=== PATIENT | female | born 1965 | race Caucasian/White ===

== ENCOUNTER 2019-05-29 17:11 | Emergency (ER) | payer MEDICARE, SELFPAY ==
[2019-05-29] VITALS (7 sets, daily range): BP systolic 112–167; BP diastolic 70–93; PULSE 79–98; RESP 16–26; TEMP 36.6; O2SAT 90–94
--- NOTE | ~2019-05-29 | XR_ITS ---
EXAMINATION: XR chest 2V DATE: 05/29/2019 18:40 INDICATION: Shortness of breath and cough TECHNIQUE: PA and lateral views of the chest were obtained. COMPARISON: Chest radiograph dated 08/25/2018 FINDINGS: Mild perihilar bronchial wall thickening. No focal airspace opacities, pulmonary edema, pleural effus ion or pneumothorax. The cardiomediastinal silhouette is normal. Mild thoracic spondylosis. IMPRESSION: 1. Mild perihilar bronchial wall thickening without evident airspace disease. This could be seen with bronchitis or reactive airway disease. Reviewed, dictated and finalized at location A. [employer] IMPRESSION: 1. Mild perihilar bronchial wall thickening without evident airspace disease. T his could be seen with bronchitis or reactive airway disease.
--- NOTE | 2019-05-29 17:51 | ECG_ITS ---
Measurements Intervals [place] Rate: 82 P: 64 MN: 177 QRS: 11 QRSD: 85 T: 66 QT: 364 QTc: 426 Interpretive Statements SINUS RHYTHM VOLTAGE CRITERIA FOR LVH BORDERLINE R WAVE PROGRESSION, ANTERIOR LEADS BORDERLINE ECG Electronically Signed On 05-29-2019 20:04:15 CUTTING TOOL [employer]ARPENER by iLon Parr D.O.
[2019-05-29 18:07] LABS: Basophils Absolute Auto 0.1 K/mm3 (0.0-0.1); Basophils Percent Auto 0.6 % (0.2-1.2); Eosinophils Absolute Auto 0.2 K/mm3 (0-0.3); Eosinophils Percent Auto 1.7 % (0-4.4); Hematocrit 33.6 % (37.0-47.0); Hemoglobin 11.1 g/dL (12.0-15.0); Immature Granulocyte Absolute 0.04 K/mm3 (0.00-0.031); Immature Granulocyte Percent A 0.3 % (0-0.5); Lymphocytes Absolute Auto 2.57 K/mm3 (0.9-3.2); Lymphocytes Percent Auto 21.1 % (18.3-44.2); Mean Corpuscular Hemoglobin 30.4 pg (26-34); Mean Corpuscular Volume 92.1 fl (80-100); Mean Platelet Volume 9.7 fl (7.4-10.4); Monocytes Percent Auto 8.5 % (2.6-8.5); Neutrophils Absolute Auto 8.3 K/mm3 (1.3-6.7); Neutrophils Percent Auto 67.8 % (45.5-73.1); Platelet Count Result 343 k/mm3 (150-375); Red Blood Count 3.65 M/mm3 (4.2-5.4); Red Cell Distribution Width 13.2 % (11.5-14.5); White Blood Count 12.2 K/mm3 (4.5-10.0)
[2019-05-29 18:18] LABS: Blood Urea Nitrogen 37 mg/dL (7-17); Calcium 9.1 mg/dL (8.4-10.2); Carbon Dioxide 24 mmol/L (22-30); Chloride 96 mmol/L (98-107); Estimated Glomerular Filt Rate 22; Glucose 104 mg/dL (65-105); Potassium 4.4 mmol/L (3.4-5.0); Sodium 136 mmol/L (137-145)
--- NOTE | 2019-05-29 20:13 | ED.URI ---
HPI - URI/Sore Throat General Chief Complaint: Upper Respiratory Infection Stated Complaint: Cough Time Seen by Provider: 05/29/19 20:12 Source: patient and RN notes reviewed Mode of arrival: other Limitations: no limitations History of Present Illness HPI Narrative: Pt is a 54 y/o female who presents to the ED with c/o a cough producing green phlegm that began three days ago (05/25/19), but has progressively worsened. Pt believes that she has pneumonia. Pt had pneumonia in August 2018. Pt states that the last time she was in the ED in August 2018, she saw Dr. Cruz. Pt denies getting all of the tests that Dr. Cruz wanted. She notes that Dr. Fountain manages her hypertension. Pt also reports chest congestion, SOB, chills, but denies a fever, chest pain, diaphoresis, and N/V/D. MD elicited complaint: cough Pertinent past history: pneumonia and COPD Onset (ago): day(s) (3) Consistency: progressively worsening Description of mucous: green Able to tolerate fluids by mouth: Yes Relieving factors: nothing Associated symptoms: chills, shortness of breath and other (chest congestion) Related Data Home Medications Medication Instructions Recorded Confirmed albuterol sulfate 90 mcg/actuation 2 puff INHALATION Q4H PRN gm 05/01/19 05/04/19 aerosol inhaler amlodipine 10 mg tablet 10 mg PO DAILY 05/01/19 05/04/19 azelastine 137 mcg (0.1 %) nasal 2 spray NASAL Q12H ml 05/01/19 05/04/19 spray aerosol duloxetine 60 mg capsule,delayed 60 mg PO DAILY 05/01/19 05/04/19 release hydrochlorothiazide 25 mg tablet 25 mg PO DAILY 05/01/19 05/04/19 levothyroxine 137 mcg tablet 137 mcg PO DAILY 05/01/19 05/04/19 loratadine 10 mg tablet 10 mg PO DAILY 05/01/19 05/04/19 meloxicam 15 mg tablet 15 mg PO DAILY 05/01/19 05/04/19 montelukast 10 mg tablet 10 mg PO DAILY 05/01/19 05/04/19 pramipexole 0.125 mg tablet 0.125 mg PO .QHS tablet 05/01/19 05/04/19 umeclidinium 62.5 mcg-vilanterol 1 inhalation INHALATION Q24H 05/01/19 05/04/19 25 mcg/actuation powdr for inhalation Allergies Allergy/AdvReac Type Severity Reaction Status Date / Time levofloxacin Allergy Unknown HIVES Verified 05/29/19 20:13 Penicillins Allergy Unknown Unknown Verified 05/29/19 20:13 prednisone AdvReac Mild Jittery Verified 05/29/19 22:16 Review of Systems Review of Systems: All systems reviewed & are unremarkable except as noted in HPI and below Constitutional: Constitutional: Reports chills and Denies fever(s) Cardiovascular: Cardiovascular: Denies chest pain and Denies diaphoresis Respiratory: Respiratory: Reports chest congestion, Reports cough (producing green phlegm) and Reports dyspnea Gastrointestinal: Gastrointestinal: Denies diarrhea, Denies nausea and Denies vomiting PMFSH Past Medical History Medical History (Updated 05/30/19 @ 00:00 by [facility] Mar[facility]uisa) CKD (chronic kidney disease) stage 3, GFR 30-59 ml/min COPD (chronic obstructive pulmonary disease) Diastolic heart failure Fibromyalgia GERD with esophagitis Hyperlipidemia Hypertension Hypothyroidism determined by thyroid function test Mild mitral regurgitation Pneumonia Recurrent boils Restless leg syndrome Smoker SVT (supraventricular tachycardia) Surgical History Surgical History (Updated 05/29/19 @ 20:30 by Iza Ruvalcaba) H/O tubal ligation History of tonsillectomy Status post total hip replacement, right Social History Social History (Updated 05/29/19 @ 20:30 by Iza Ruvalcaba) Smoking packs per day: 1 Smoking cigarettes per day: 20.0 Smoking status: Current every day smoker Tobacco type: cigarettes Second hand tobacco smoke exposure: No Additional smoking assessment comments: Patient started back smoking about 6 months ago. Alcohol intake: never Substance use: never Substance use type: does not use Gender identity (if verbalized by the patient): Female Exam Const: General: cooperative, no acute distress and alert Nutritional Appearance: well n
[2019-05-29 20:53] LABS: NT Pro B Type Natriuretic Pept 914 PG/ML (5-100)
[2019-05-29] MEDS: IPRATROPIUM BR 0.02% INH SOLN 0.5 MG/2.5 ML VIAL 1.5 MG INHALATION (21:00)
[2019-05-29] MEDS: ALBUTEROL SULFATE NEB 2.5 MG/0.5 ML INH 15 MG INHALATION (21:00)
[2019-05-29 21:07] LABS: Alveolar/Arterial O2 Gradient 45.5 mmHg; Base Excess ABG -1.1 mEq/l (+/-2.0); Carboxyhemoglobin 1.8 % THb (0-2.0); Fractional Inspired Oxygen 21 %; HCO3 ABG 23.5 mEq/l (22.0-26.0); Methemoglobin ABG 0.1 %THb (0-1.5); Oxygen Content ABG 14.1 %vol (16.0-22.0); Oxygen Saturation ABG 89.9 % (95.0-100.0); PCO2 ABG 39.1 mmHg (35.0-45.0); PO2 ABG 57.4 mmHg (80.0-100.0); PO2 FiO2 Ratio Arterial Blood 2.73 %; Reduced Hemoglobin 10.1 %THb (0-5.0); Total Hemoglobin 11.4 g/dL (12.0-18.0); pH ABG 7.397 (7.350-7.450)
[2019-05-29 21:08] LABS: Device ROOM AIR; Modified Allen's Test Pass; Site Drawn LEFT RADIAL
[2019-05-29] MEDS: predniSONE 20 MG TABLET 40 MG PO (22:49)
== END 2019-05-29 22:50 | disposition left against medical advice (07) ==
PROVIDERS: Emergency Medicine; Emergency Provider Emergency Medicine; PCP Family Medicine
DX: J96.01 Acute respiratory failure with hypoxia (principal); J44.1 Chronic obstructive pulmonary disease with (acute) exacerbation; I13.0 Hypertensive heart and chronic kidney disease with heart failure and stage 1 through stage 4 chronic kidney disease, or unspecified chronic kidney disease; N18.3 Chronic kidney disease, stage 3 (moderate); I50.30 Unspecified diastolic (congestive) heart failure; F17.210 Nicotine dependence, cigarettes, uncomplicated
CPT/HCPCS: 36415; 36600; 71046; 80048; 82375; 82805; 83050; 83880; 85025; 87804; 93005; 94640; 99284; J7512

== ENCOUNTER 2019-06-08 09:44 | Emergency (ER) | payer MEDICARE, SELFPAY ==
--- NOTE | ~2019-06-08 | CT_ITS ---
EXAMINATION: CT abdomen pelvis wo con DATE: 06/08/2019 10:43 INDICATION: Right flank pain. TECHNIQUE: Computed tomography (CT) of the abdomen and pelvis was performed without intravenous contr ast. The dose-length product was 358.92 mGy-cm. Automated exposure control and iterative reconstructi on technique were employed. COMPARISON: None. FINDINGS: Lung bases unremarkable. Heart size normal. Small pericardial effusion. Calcified granuloma s in the spleen. There is moderate atherosclerosis. No aneurysm. Colonic diverticulosis without evide nce for diverticulitis. The liver, gallbladder, adrenal glands are unremarkable. Right renal atrophy. There is an exophytic 1 .5 cm low-density mass at the upper pole of the left kidney, most likely a cyst. No bowel obstruction . No lymphadenopathy. There is a right total hip arthroplasty. No acute osseous abnormality. IMPRESSION: 1. No acute abdominal abnormality. No definite renal or ureteral stone, although the distal aspect th e ureter is obscured by streak artifact from right hip arthroplasty. No hydronephrosis. Reviewed, dictated and finalized at location A. IMPRESSION: 1. No acute abdominal abnormality. No definite renal or ureteral stone, althoug h the distal aspect the ureter is obscured by streak artifact from right hip ar throplasty. No hydronephrosis.
[2019-06-08 09:50] VITALS: BP 184/73; PULSE 88; RESP 20; TEMP 36.2; O2SAT 96
[2019-06-08 10:09] LABS: Basophils Absolute Auto 0.1 K/mm3 (0.0-0.1); Basophils Percent Auto 0.2 % (0.2-1.2); Eosinophils Absolute Auto 0.2 K/mm3 (0-0.3); Eosinophils Percent Auto 0.6 % (0-4.4); Hematocrit 35.7 % (37.0-47.0); Hemoglobin 11.5 g/dL (12.0-15.0); Immature Granulocyte Absolute 0.49 K/mm3 (0.00-0.031); Immature Granulocyte Percent A 1.9 % (0-0.5); Lymphocytes Absolute Auto 5.28 K/mm3 (0.9-3.2); Lymphocytes Percent Auto 20.6 % (18.3-44.2); Mean Corpuscular HGB Conc 32.2 g/dl (32-36); Mean Corpuscular Hemoglobin 30.1 pg (26-34); Mean Corpuscular Volume 93.5 fl (80-100); Mean Platelet Volume 9.2 fl (7.4-10.4); Monocytes Absolute Auto 1.8 K/mm3 (0.1-0.6); Monocytes Percent Auto 7.1 % (2.6-8.5); Neutrophils Absolute Auto 17.8 K/mm3 (1.3-6.7); Neutrophils Percent Auto 69.6 % (45.5-73.1); Platelet Count Result 459 k/mm3 (150-375); Red Blood Count 3.82 M/mm3 (4.2-5.4); Red Cell Distribution Width 13.4 % (11.5-14.5); White Blood Count 25.6 K/mm3 (4.5-10.0)
[2019-06-08 10:14] LABS: Add Urine Microscopic? YES; Appearance Urine Clear (Clear); Bilirubin Urine Negative (Negative); Blood Urine 1+ (Negative); Color Urine Yellow (Yellow); Glucose Urine UA Negative (Negative); Ketones Urine Trace mg/dL (Negative); Leukocyte Esterase Ur Negative LEU/UL (Negative); Mucus Urine Rare /lpf; Nitrate Urine Negative (Negative); Protein Urine Negative (Negative); RBC Urine 0-2 /hpf (0-2); Specific Grav Ur 1.024 (1.001-1.035); Squamous Epithelial Cell Urine Many /hpf (Few); WBC Urine 0-3 /hpf
--- NOTE | 2019-06-08 10:17 | ED.FEMALEGU ---
HPI - Female Genitourinary General Chief complaint: Urogenital-Female Stated complaint: R flank pain Time Seen by Provider: 06/08/19 09:59 Source: patient Mode of arrival: ambulatory Limitations: no limitations History of Present Illness HPI Narrative: A 54 y/o female pt presents to the ED, with c/o constant rt sided flank pain that began this morning. Pt states she has a hx of kidney stones and notes that this pain feels similar. She notes that when lying supine her pain is alleviated. Pt has nausea, but denies V/D, dysuria, hematuria, or fever. She has no hx of ABD surgeries. Pt states she was recently dx with bronchitis x 1 week ago, that she is currently prescribed Prednisone and Albuterol treatments for. MD elicited complaint: back pain (rt lower back pain) Pertinent past history: other (kidney stones) Onset (ago): hour(s) Location of symptoms: flank (rt) Consistency: constant Relieving factors: other (lying supine) Associated symptoms: nausea Related Data Home Medications Medication Instructions Recorded Confirmed albuterol sulfate 90 mcg/actuation 2 puff INHALATION Q4H PRN gm 05/01/19 05/04/19 aerosol inhaler azelastine 137 mcg (0.1 %) nasal 2 spray NASAL Q12H ml 05/01/19 05/04/19 spray aerosol duloxetine 60 mg capsule,delayed 60 mg PO DAILY 05/01/19 05/04/19 release hydrochlorothiazide 25 mg tablet 25 mg PO DAILY 05/01/19 05/04/19 levothyroxine 137 mcg tablet 137 mcg PO DAILY 05/01/19 05/04/19 loratadine 10 mg tablet 10 mg PO DAILY 05/01/19 05/04/19 meloxicam 15 mg tablet 15 mg PO DAILY 05/01/19 05/04/19 montelukast 10 mg tablet 10 mg PO DAILY 05/01/19 05/04/19 pramipexole 0.125 mg tablet 0.125 mg PO .QHS tablet 05/01/19 05/04/19 umeclidinium 62.5 mcg-vilanterol 1 inhalation INHALATION Q24H 05/01/19 05/04/19 25 mcg/actuation powdr for inhalation Allergies Allergy/AdvReac Type Severity Reaction Status Date / Time levofloxacin Allergy Unknown HIVES Verified 06/08/19 09:53 Penicillins Allergy Unknown Unknown Verified 06/08/19 09:53 Review of Systems Review of Systems: All systems reviewed & are unremarkable except as noted in HPI and below Constitutional: Constitutional: Denies fever(s) Gastrointestinal: Gastrointestinal: Denies diarrhea, Reports nausea and Denies vomiting Genitourinary: Genitourinary: Denies hematuria and Denies dysuria PMFSH Past Medical History Medical History CKD (chronic kidney disease) stage 3, GFR 30-59 ml/min COPD (chronic obstructive pulmonary disease) Diastolic heart failure Fibromyalgia GERD with esophagitis Hyperlipidemia Hypertension Hypothyroidism determined by thyroid function test Mild mitral regurgitation Pneumonia Recurrent boils Restless leg syndrome Smoker SVT (supraventricular tachycardia) Surgical History Surgical History H/O tubal ligation History of tonsillectomy Status post total hip replacement, right Social History Social History Smoking packs per day: 1 Smoking cigarettes per day: 20.0 Smoking status: Current every day smoker Tobacco type: cigarettes Second hand tobacco smoke exposure: No Additional smoking assessment comments: Patient started back smoking about 6 months ago. Alcohol intake: never Substance use: never Substance use type: does not use Gender identity (if verbalized by the patient): Female Course Course Emergency Course: Discussed with patient that her exam is more consistent with a back problem and that her relatively clean UA would argue against a kidney stone issue Nonetheless her symptoms appear similar to her prior stones so we will check a CT to exclude that diagnosis Also with regards to the elevated white count patient has been on an extended course of prednisone for bronchitis Vital Signs Vital signs: Vital Signs Wise
[2019-06-08 10:21] LABS: Blood Urea Nitrogen 38 mg/dL (7-17); Carbon Dioxide 31 mmol/L (22-30); Chloride 97 mmol/L (98-107); Estimated CRCL calculation 42 ml/min; Estimated Glomerular Filt Rate 33; Glucose 75 mg/dL (65-105); Potassium 3.4 mmol/L (3.4-5.0); Sodium 135 mmol/L (137-145)
[2019-06-08 11:27] VITALS: BP 184/78; PULSE 74; RESP 20; O2SAT 98
== END 2019-06-08 11:28 | disposition home or self-care (01) ==
PROVIDERS: Emergency Provider Emergency Medicine; PCP Family Medicine
DX: M54.41 Lumbago with sciatica, right side (principal); J44.9 Chronic obstructive pulmonary disease, unspecified; I13.0 Hypertensive heart and chronic kidney disease with heart failure and stage 1 through stage 4 chronic kidney disease, or unspecified chronic kidney disease; N18.3 Chronic kidney disease, stage 3 (moderate); I50.30 Unspecified diastolic (congestive) heart failure; M79.7 Fibromyalgia; K21.9 Gastro-esophageal reflux disease without esophagitis; E78.5 Hyperlipidemia, unspecified; E03.9 Hypothyroidism, unspecified; G25.81 Restless legs syndrome; Z96.641 Presence of right artificial hip joint; F17.210 Nicotine dependence, cigarettes, uncomplicated
CPT/HCPCS: 36415; 74176; 80048; 81001; 85025; 99284

== ENCOUNTER 2019-10-10 04:46 | Inpatient (IN) | payer MEDICARE, MEDICAID, SELFPAY ==
[2019-10-10] VITALS (21 sets, daily range): BP systolic 186–260; BP diastolic 73–138; PULSE 71–105; RESP 16–22; TEMP 36.6–38; O2SAT 89–98; BMI 34.4
--- NOTE | ~2019-10-10 | XR_ITS ---
EXAMINATION: XR chest 1V portable DATE: 10/10/2019 06:15 INDICATION: Cough TECHNIQUE: frontal view of the chest was obtained. COMPARISON: Chest radiograph dated 05/29/2019 FINDINGS: Again seen is perihilar bronchial wall thickening. New subtle airspace opacities in the right lower l yana zone. Blunting at the right costophrenic angle and could not exclude small right pleural effusion . No pneumothorax or left-sided pleural effusion. The cardiomediastinal silhouette is normal. Mild th oracic spondylosis. IMPRESSION: 1. Chronic perihilar bronchial wall thickening with new subtle airspace opacities in the right lower lung zone suspicious for pneumonia with differential including atelectasis. 2. Possible small right pleural effusion. Reviewed, dictated and finalized at location A. IMPRESSION: 1. Chronic perihilar bronchial wall thickening with new subtle airspace opaciti es in the right lower lung zone suspicious for pneumonia with differential incl uding atelectasis. 2. Possible small right pleural effusion.
--- NOTE | ~2019-10-10 | XR_ITS ---
EXAMINATION: XR chest 1V portable DATE: 10/11/2019 06:32 INDICATION: Pneumonia. TECHNIQUE: A single frontal view of the chest was obtained. COMPARISON: Chest single view 10/10/2019, CT abdomen and pelvis 06/08/2019 FINDINGS: The chest demonstrates clear lungs without pneumonia, pleural effusion, or pneumothorax. Th e heart size is normal. IMPRESSION: 1. No acute cardiopulmonary disease. Reviewed, dictated and finalized at location A.
--- NOTE | 2019-10-10 04:57 | ECG_ITS ---
Measurements Intervals [place] Rate: 95 P: 64 VT: 168 QRS: 5 QRSD: 86 T: 76 QT: 325 QTc: 409 Interpretive Statements SINUS RHYTHM LEFT VENTRICULAR HYPERTROPHY WITH ST-T CHANGE PEAKED T WAVES- CONSIDER HYPERKALEMIA OR ISCHEMIA BASELINE ARTIFACT- I, II, III, AVR, AVL, AVF, V1-V2 ABNORMAL ECG Electronically Signed On 10-10-2019 7:25:51 CDT by Lion Parr D.O.
[2019-10-10 05:36] LABS: Basophils Absolute Auto 0.1 K/mm3 (0.0-0.1); Basophils Percent Auto 0.3 % (0.2-1.2); Eosinophils Percent Auto 0.1 % (0-4.4); Hematocrit 31.9 % (37.0-47.0); Hemoglobin 10.4 g/dL (12.0-15.0); Immature Granulocyte Absolute 0.09 K/mm3 (0.00-0.031); Immature Granulocyte Percent A 0.5 % (0-0.5); Lymphocytes Absolute Auto 1.76 K/mm3 (0.9-3.2); Lymphocytes Percent Auto 9.6 % (18.3-44.2); Mean Corpuscular HGB Conc 32.6 g/dl (32-36); Mean Corpuscular Hemoglobin 30.7 pg (26-34); Mean Corpuscular Volume 94.1 fl (80-100); Mean Platelet Volume 10.5 fl (7.4-10.4); Monocytes Absolute Auto 1.9 K/mm3 (0.1-0.6); Monocytes Percent Auto 10.6 % (2.6-8.5); Neutrophils Absolute Auto 14.4 K/mm3 (1.3-6.7); Neutrophils Percent Auto 78.9 % (45.5-73.1); Platelet Count Result 331 k/mm3 (150-375); Red Blood Count 3.39 M/mm3 (4.2-5.4); Red Cell Distribution Width 13.7 % (11.5-14.5); White Blood Count 18.3 K/mm3 (4.5-10.0)
[2019-10-10 05:49] LABS: Lactic Acid Reflex 0.8 mmol/L (0.7-2.1)
[2019-10-10 05:50] LABS: Blood Urea Nitrogen 55 mg/dL (7-17); Carbon Dioxide 22 mmol/L (22-30); Chloride 105 mmol/L (98-107); Estimated CRCL calculation 32 ml/min; Estimated Glomerular Filt Rate 24; Glucose 121 mg/dL (65-105); Potassium 4.4 mmol/L (3.4-5.0); Sodium 136 mmol/L (137-145)
[2019-10-10] MEDS: SODIUM CHLORIDE 0.9% IV 1,000 ML 999 ML IV CONT (06:01)
[2019-10-10 06:14] LABS: Add Urine Microscopic? YES; Appearance Urine Clear (Clear); Bilirubin Urine Negative (Negative); Blood Urine 1+ (Negative); Color Urine Yellow (Yellow); Glucose Urine UA Negative (Negative); Ketones Urine Negative (Negative); Leukocyte Esterase Ur Negative LEU/UL (Negative); Mucus Urine Rare /lpf; Nitrate Urine Negative (Negative); Protein Urine Negative (Negative); Specific Grav Ur 1.024 (1.001-1.035); Squamous Epithelial Cell Urine Many /hpf (Few); Urobilinogen Urine Negative mg/dL (<2.0); WBC Urine 0-3 /hpf
--- NOTE | 2019-10-10 06:19 | ED.SOB ---
HPI - SOB/Dyspnea General Chief Complaint: Shortness of Breath/Dyspnea Stated Complaint: SOB/fever Time Seen by Provider: 10/10/19 05:08 Source: RN notes reviewed History of Present Illness HPI Narrative: Patient presents emergency department from home for shortness of breath. Patient states symptoms began 2 days ago. States that she had had a cough that is been nonproductive associated with low-grade fever. She denies any abdominal pain nausea vomiting or any other symptoms. States she is still smoking approximately a pack a day. States she has inhaler as well as nebulizer at home which she has been using with minimal relief. Patient denies any other symptoms at this time. States she is due for her morning blood pressure medications Related Data Home Medications Medication Instructions Recorded Confirmed albuterol sulfate 90 mcg/actuation 2 puff INHALATION Q4H PRN gm 05/01/19 08/21/19 aerosol inhaler duloxetine 60 mg capsule,delayed 60 mg PO DAILY 05/01/19 08/21/19 release loratadine 10 mg tablet 10 mg PO DAILY 05/01/19 08/21/19 meloxicam 15 mg tablet 15 mg PO DAILY 05/01/19 08/21/19 nifedipine 60 mg tablet,extended 60 mg PO DAILY 08/21/19 08/21/19 release Allergies Allergy/AdvReac Type Severity Reaction Status Date / Time levofloxacin Allergy Unknown HIVES Verified 10/10/19 05:18 Penicillins Allergy Unknown Unknown Verified 10/10/19 05:18 Review of Systems Review of Systems: Narrative: Gen.: See HPI Eyes: Denies eye pain or visual change ENT: Denies congestion Respiratory: See HPI CV: Denies chest pain or palpitations GI: Denies abdominal pain nausea, emesis or diarrhea Musculoskeletal: Denies back pain or muscle pain Neuro: Denies numbness, tingling, weakness or focal weakness Skin: Denies rash Except as documented, all other systems reviewed and negative [facility] Past Medical History Medical History CKD (chronic kidney disease) stage 3, GFR 30-59 ml/min COPD (chronic obstructive pulmonary disease) Diastolic heart failure Fibromyalgia GERD with esophagitis Hyperlipidemia Hypertension Hypothyroidism determined by thyroid function test Mild mitral regurgitation Pneumonia Recurrent boils Restless leg syndrome Smoker SVT (supraventricular tachycardia) Social History Social History (Reviewed 10/10/19 @ 06:20 by MATEUS Howell Smoking packs per day: 1 Smoking cigarettes per day: 20.0 Smoking status: Heavy tobacco smoker Tobacco type: cigarettes Second hand tobacco smoke exposure: No Additional smoking assessment comments: Patient started back smoking about 6 months ago. Alcohol intake: never Substance use: never Substance use type: does not use Gender identity (if verbalized by the patient): Female Exam Narrative: Exam Narrative: APPEARANCE: No acute distress, nontoxic, resting in bed EYES: EOMI HEENT: Normocephalic, atraumatic, OMM RESPIRATORY: No respiratory distress wheezing throughout the bilateral lung mercado, no rhonchi or rales CARDIOVASCULAR: Regular rate and rhythm without murmurs rubs or gallops. ABDOMINAL: Soft, nontender, nondistended, no rebound or guarding MUSCULOSKELETAl: Moves all extremities. No clubbing, cyanosis or edema. NEURO: Awake and alert. Following commands, speech normal, no focal deficits SKIN:: Warm, dry. No rashes lesions or abrasions PSYCHIATRIC: Normal affect/mood, Course Course Emergency Course: Discussed with Dr. Bryant presentation work-up. Agrees with admission at this time. Request patient be placed on albuterol inhaler 6 puffs 4 times daily. Request patient started on antibiotics and agrees with COVID swab. Reviewed old records. Patient has ceftezole and before in the past and will give Rocephin and Zithromax Discussed with patient and family results of workup and diagnosis. Discussed need for admission. Patient and family understand and agree to current treatment plan
[2019-10-10] MEDS: ALBUTEROL SULFATE (*SP) AEROSOL 1 PUFF 6 PUFF INHALATION (06:44)
[2019-10-10] MEDS: methylPREDNISolone SOD SUCC 125 MG VIAL IV PUSH (06:54)
[2019-10-10] MEDS: METOPROLOL TARTRATE 50 MG TAB PO ×2 (06:55→20:14)
[2019-10-10] MEDS: lisinopriL 20 MG TABLET 40 MG PO (06:55)
--- NOTE | 2019-10-10 08:05 | PC.NURSE ---
This patient, Taryn Greco, was admitted to 3 Med Surg Room 329-01. Patient/family oriented to hospital policies and general routines including ID bracelet, bed and alarms, visiting hours, pain management, procedures, bathroom and other care routines, personal items, smoking policy, room service/diet, and visiting hours. Valuables list has been completed. Information on how to activate the Rapid Response Team has been discussed. Patient/Family are encouraged to report perceived risks to care and to ask questions if they do not understand what they are told or what they should do.
[2019-10-10] MEDS: hydrALAZINE HCL 20 MG/ML VIAL 10 MG IV PUSH (09:10)
--- NOTE | 2019-10-10 09:16 | PM.IMHP ---
H&P: HPI History of Present Illness Chief complaint: ae copd,covid 19 suspected Narrative: Taryn Greco is a 54 year old female with CHF, COPD, tobacco abuse and HTN here for SOB. Patient has been feeling more short of breath over the past week. She uses albuterol nebulizer treatments as needed but has increased issues to 3 to 4 times a day past week. She called or primary care doctor October 05 regarding shortness of breath. Prednisone was called in the patient states he was no benefit with the treatment. She did have a cough productive yellow sputum but no hemoptysis. She has been having fever and chills. No obvious exposure to COVID that she is aware of. She has not been out very much. Her symptoms seem to be worse with lying flat. She was having pedal edema for few weeks. She felt this was related to her nifedipine so she stopped this medication about 1 week ago. Her pedal edema has improved. She denies any chest pain. She is having chest and upper back pain when she coughs. She had headache for about 2 weeks but that resolved a week ago. No numbness, tingling or weakness in arms or legs. She does have fibromyalgia ?everywhere?. No nausea or vomiting excelp slight nausea in the ER. No diarrhea or abd pain. No palpitation. No vision changes or diplopia. No odynophagia or dysphagia. Because of the worsening symptoms, she presented to the emergency room for evaluation. In the emergency room, temperature was a 100.4? with a pulse 105. Blood pressure was 232/124. Chest x-ray concerning for right lower lobe pneumonia. White count was elevated 18,000. She was treated with acetaminophen, IV fluids, oral Lopressor, lisinopril, Solu-Medrol, albuterol, and abx. Her symptoms were improved and she was able to sleep in the ER. Patient admitted for further care. Review of Systems Review of Systems: All systems reviewed & are unremarkable except as noted in HPI and below PMFSH Past Medical History Medical History CKD (chronic kidney disease) stage 3, GFR 30-59 ml/min COPD (chronic obstructive pulmonary disease) Diastolic heart failure Fibromyalgia GERD with esophagitis Hyperlipidemia Hypertension Hypothyroidism determined by thyroid function test Mild mitral regurgitation Pneumonia Recurrent boils Restless leg syndrome Smoker SVT (supraventricular tachycardia) Surgical History Surgical History H/O tubal ligation History of tonsillectomy Status post total hip replacement, right 2016 Family History Family History (Updated 10/10/19 @ 08:26 by Melinda Stephens RN) Father Family history of cardiovascular disease Diabetes mellitus Family history of lung cancer Family history of diabetes mellitus in first degree relative Hypertension Mother Diabetes mellitus Family history of diabetes mellitus in first degree relative Family history of thyroid disease Hypertension Social History Social History (Updated 10/10/19 @ 10:05 by Juventino Lao MD) Social History: Patient smokes a pack a day for past 43 years. No alcohol or drug use. Lives on with her . She is a full code. She nominated her to be the individual making medical decisions for her if she is not able. Smoking packs per day: 1 Smoking cigarettes per day: 20.0 Years smoked: 43 Smoking pack-years: 43.00 Smoking status: Heavy tobacco smoker Tobacco type: cigarettes Second hand tobacco smoke exposure: Yes Additional smoking assessment comments: Patient started back smoking about 6 months ago. Alcohol intake: never Substance use: current Substance use type: prescription drug Gender identity (if verbalized by the patient): Female Spiritual care concerns: No Meds Home Medications and Allergies Home Medications Medication Instructions Recorded Confirmed Type albuterol sulfate 90 mcg/ac
[2019-10-10] MEDS: ALBUTEROL SULFATE (*SP) AEROSOL 1 PUFF 2 PUFF INHALATION ×3 (10:07→21:28)
[2019-10-10 10:25] LABS: Alveolar/Arterial O2 Gradient 73.1 mmHg; Base Excess ABG -6.4 mEq/l (+/-2.0); Fractional Inspired Oxygen 28 %; HCO3 ABG 18.3 mEq/l (22.0-26.0); Oxygen Content ABG 15.9 %vol (16.0-22.0); Oxygen Saturation ABG 96.3 % (95.0-100.0); PCO2 ABG 33.6 mmHg (35.0-45.0); PO2 ABG 86.9 mmHg (80.0-100.0); Total Hemoglobin 11.8 g/dL (12.0-18.0); pH ABG 7.354 (7.350-7.450)
[2019-10-10 10:26] LABS: Device NASAL CANNULA; Modified Allen's Test Pass; Site Drawn LEFT RADIAL
[2019-10-10] MEDS: METOPROLOL TARTRATE INJ 5 MG/5 ML VIAL IV PUSH (10:46)
[2019-10-10] MEDS: NIFEdipine 10 MG CAPSULE PO ×3 (10:49→23:38)
[2019-10-10] MEDS: methylPREDNISolone SOD SUCC 125 MG VIAL 60 MG IV PUSH ×3 (13:39→23:38)
[2019-10-10] MEDS: hydrALAZINE HCL 25 MG TABLET PO ×3 (13:41→20:14)
[2019-10-10 18:06] LABS: SARS-CoV-2 RNA PCR Negative
[2019-10-10] MEDS: ATORVASTATIN 20 MG TABLET PO (20:13)
[2019-10-10] MEDS: DULoxetine HCL 60 MG CAPSULE.DR PO (20:14)
[2019-10-10] MEDS: PRAMIPEXOLE 0.125 MG TABLET PO (20:15)
[2019-10-11] VITALS (11 sets, daily range): BP systolic 172–210; BP diastolic 74–92; PULSE 76–86; RESP 16–20; TEMP 36.7–36.9; O2SAT 96–99
[2019-10-11] MEDS: ALBUTEROL SULFATE (*SP) AEROSOL 1 PUFF 2 PUFF INHALATION ×4 (02:28→20:48)
[2019-10-11] MEDS: methylPREDNISolone SOD SUCC 125 MG VIAL 60 MG IV PUSH ×4 (05:25→23:58)
[2019-10-11] MEDS: LEVOTHYROXINE SODIUM 112 MCG TABLET PO (05:26)
[2019-10-11] MEDS: LEVOTHYROXINE SODIUM 25 MCG TABLET PO (05:26)
[2019-10-11] MEDS: NIFEdipine 10 MG CAPSULE PO ×4 (05:26→23:58)
[2019-10-11 06:44] LABS: Basophils Percent Auto 0.1 % (0.2-1.2); Hemoglobin 11.2 g/dL (12.0-15.0); Immature Granulocyte Absolute 0.13 K/mm3 (0.00-0.031); Immature Granulocyte Percent A 0.8 % (0-0.5); Lymphocytes Absolute Auto 0.88 K/mm3 (0.9-3.2); Lymphocytes Percent Auto 5.3 % (18.3-44.2); Mean Corpuscular HGB Conc 32.9 g/dl (32-36); Mean Corpuscular Hemoglobin 30.9 pg (26-34); Mean Corpuscular Volume 93.9 fl (80-100); Mean Platelet Volume 10.7 fl (7.4-10.4); Monocytes Absolute Auto 0.4 K/mm3 (0.1-0.6); Monocytes Percent Auto 2.2 % (2.6-8.5); Neutrophils Absolute Auto 15.2 K/mm3 (1.3-6.7); Neutrophils Percent Auto 91.6 % (45.5-73.1); Platelet Count Result 319 k/mm3 (150-375); Red Blood Count 3.62 M/mm3 (4.2-5.4); Red Cell Distribution Width 13.3 % (11.5-14.5); White Blood Count 16.6 K/mm3 (4.5-10.0)
[2019-10-11 06:56] LABS: Blood Urea Nitrogen 54 mg/dL (7-17); Calcium 9.1 mg/dL (8.4-10.2); Carbon Dioxide 15 mmol/L (22-30); Chloride 104 mmol/L (98-107); Estimated CRCL calculation 44 ml/min; Estimated Glomerular Filt Rate 36; Glucose 138 mg/dL (65-105); Potassium 4.7 mmol/L (3.4-5.0); Sodium 134 mmol/L (137-145)
[2019-10-11] MEDS: METOPROLOL TARTRATE 50 MG TAB PO ×2 (08:15→22:05)
[2019-10-11] MEDS: hydrALAZINE HCL 25 MG TABLET PO ×2 (08:15→13:15)
[2019-10-11] MEDS: LORATADINE 10 MG TABLET PO (08:16)
[2019-10-11 08:50] LABS: Lactic Acid Reflex 0.7 mmol/L (0.7-2.1)
--- NOTE | 2019-10-11 15:08 | PM.IMPN ---
Progress Note: A&P Assessment and Plan (1) Acute respiratory failure: Qualifiers: Respiratory failure complication: hypoxia Qualified Code(s): J96.01 - Acute respiratory failure with hypoxia Code(s): J96.00 - Acute respiratory failure, unspecified whether with hypoxia or hypercapnia Status: Acute Assessment and Plan: Patient with acute respiratory failure. COVID negative. PE felt to be less likely. Most likely related to COPD exacerbation. Symptomatically much improved with routine COPD treatment. Continue Solu-Medrol and antibiotics. (2) COPD (chronic obstructive pulmonary disease): Qualifiers: COPD type: COPD with acute exacerbation Qualified Code(s): J44.1 - Chronic obstructive pulmonary disease with (acute) exacerbation Code(s): J44.9 - Chronic obstructive pulmonary disease, unspecified Status: Acute Assessment and Plan: Patient with improved air exchange. Related to COPD exacerbation. Continue breathing treatments and Solu-Medrol. (3) Community acquired pneumonia: Qualifiers: Laterality: right Lung location: lower lobe of lung Qualified Code(s): J18.9 - Pneumonia, unspecified organism Code(s): J18.9 - Pneumonia, unspecified organism Status: Acute Assessment and Plan: Chest x-ray on admission showing concerns for right lower lobe pneumonia. Repeat chest x-ray this morning was reviewed. Chest x-ray was read as clear but still appears to be some findings in the right lower lobe. Patient now with productive cough and did have low-grade fever to suggest pneumonia. White count improved. May still be elevated mildly because of the steroids. Will continue current treatment since patient is improving and clinically appears she does have acute acquired pneumonia. Continue albuterol and Spiriva. Continue Rocephin and azithromycin. (4) Hypertension: Qualifiers: Hypertension type: essential hypertension Qualified Code(s): I10 - Essential (primary) hypertension Code(s): I10 - Essential (primary) hypertension Status: Acute Assessment and Plan: Patient with accelerated hypertension on admission. Most likely related to her respiratory failure. Currently on metoprolol, hydralazine and nifedipine orally. Continue to advance medications as blood pressure requires. (5) Suspected COVID-19 virus infection: Code(s): Z20.828 - Contact with and (suspected) exposure to other viral communicable diseases Status: Acute Assessment and Plan: COVID negative. Isolation stopped. (6) CKD (chronic kidney disease) stage 3, GFR 30-59 ml/min: Code(s): N18.3 - Chronic kidney disease, stage 3 (moderate) Status: Acute Assessment and Plan: Patient has chronic kidney disease. She no longer follows with nephrology. Creatinine ranges from 1.4 to 2.3. Creatinine 2.1 on admission but much improved at 1.5 today. BUN is elevated at 54 but could be related the steroids. Will continue to hold lisinopril and HCTZ for now. She did get IV fluids in the ER. Alsowith metabolic nongap acidosis. Probably related to her CKD or from ketosis. Lactic level was normal. Follow for now to see if this corrects on its own. e (7) Diastolic heart failure: Qualifiers: Heart failure chronicity: chronic Qualified Code(s): I50.32 - Chronic diastolic (congestive) heart failure Code(s): I50.30 - Unspecified diastolic (congestive) heart failure Status: Acute Assessment and Plan: No pedal edema, gallop or elevated JVP to suggest CHF. CXR reviewed and more concerning for PNA and COPD exacerbation. (8) Smoker: Code(s): F17.200 - Nicotine dependence, unspecified, uncomplicated Status: Acute Assessment and Plan: Patient has morris educated about the benefits of smoking cessation. She is trying to quit. Okay for nicotine patch. (9) DVT pr
[2019-10-11] MEDS: hydrALAZINE HCL 50 MG TABLET PO (17:16)
[2019-10-11] MEDS: DULoxetine HCL 60 MG CAPSULE.DR PO (22:05)
[2019-10-11] MEDS: ATORVASTATIN 20 MG TABLET PO (22:05)
[2019-10-11] MEDS: PRAMIPEXOLE 0.125 MG TABLET PO (22:05)
[2019-10-12 02:00] VITALS: BP 216/108; PULSE 70; RESP 16; TEMP 36.6; O2SAT 97
[2019-10-12] MEDS: ALBUTEROL SULFATE (*SP) AEROSOL 1 PUFF 2 PUFF INHALATION ×3 (02:19→13:35)
[2019-10-12] MEDS: methylPREDNISolone SOD SUCC 125 MG VIAL 60 MG IV PUSH (05:39)
[2019-10-12] MEDS: LEVOTHYROXINE SODIUM 25 MCG TABLET PO (05:40)
[2019-10-12] MEDS: LEVOTHYROXINE SODIUM 112 MCG TABLET PO (05:40)
[2019-10-12 06:00] VITALS: BP 228/108; PULSE 83; RESP 18; TEMP 36.5; O2SAT 99
[2019-10-12 06:32] LABS: Hematocrit 30.9 % (37.0-47.0); Hemoglobin 10.5 g/dL (12.0-15.0); Mean Corpuscular Hemoglobin 31.2 pg (26-34); Mean Corpuscular Volume 91.7 fl (80-100); Mean Platelet Volume 10.9 fl (7.4-10.4); Platelet Count Result 356 k/mm3 (150-375); Red Blood Count 3.37 M/mm3 (4.2-5.4); Red Cell Distribution Width 13.3 % (11.5-14.5); White Blood Count 19.5 K/mm3 (4.5-10.0)
[2019-10-12 06:45] LABS: Albumin Level 3.9 g/dL (3.5-5.1); Blood Urea Nitrogen 61 mg/dL (7-17); Calcium 8.9 mg/dL (8.4-10.2); Carbon Dioxide 23 mmol/L (22-30); Chloride 102 mmol/L (98-107); Estimated CRCL calculation 39 ml/min; Estimated Glomerular Filt Rate 31; Glucose 131 mg/dL (65-105); Magnesium 1.8 mg/dL (1.6-2.3); Phosphorus 3.6 mg/dL (2.5-4.5); Potassium 4.2 mmol/L (3.4-5.0); Sodium 133 mmol/L (137-145)
[2019-10-12] MEDS: hydrALAZINE HCL 50 MG TABLET PO ×2 (06:55→11:58)
[2019-10-12 07:46] VITALS: O2SAT 96
[2019-10-12] MEDS: DOXAZOSIN MESYLATE 1 MG TABLET PO (08:29)
[2019-10-12] MEDS: predniSONE 20 MG TABLET 40 MG PO (08:29)
[2019-10-12 08:30] VITALS: PULSE 88
[2019-10-12] MEDS: METOPROLOL TARTRATE 50 MG TAB PO (08:30)
[2019-10-12] MEDS: NIFEdipine 30 MG TAB.ER.24 60 MG PO (08:30)
[2019-10-12] MEDS: LORATADINE 10 MG TABLET PO (08:30)
[2019-10-12 12:02] VITALS: BP 190/108
--- NOTE | 2019-10-12 13:12 | PM.DS ---
DS: Admitting Diagnosis Admitting Diagnosis Admitting Diagnosis: Acute respiratory failure with hypoxia DS: Discharge Diagnosis Discharge Diagnosis (1) Acute respiratory failure: Qualifiers: Respiratory failure complication: hypoxia Qualified Code(s): J96.01 - Acute respiratory failure with hypoxia Code(s): J96.00 - Acute respiratory failure, unspecified whether with hypoxia or hypercapnia Status: Acute Assessment and Plan: Patient with acute respiratory failure. COVID negative. PE felt to be less likely. Most likely related to COPD exacerbation. Symptomatically much improved with steroids, nebs and antibiotics. (2) COPD (chronic obstructive pulmonary disease): Qualifiers: COPD type: COPD with acute exacerbation Qualified Code(s): J44.1 - Chronic obstructive pulmonary disease with (acute) exacerbation Code(s): J44.9 - Chronic obstructive pulmonary disease, unspecified Status: Acute Assessment and Plan: Patient with improved air exchange. Related to COPD exacerbation. Treated with nebs and steroids. (3) Community acquired pneumonia: Qualifiers: Laterality: right Lung location: lower lobe of lung Qualified Code(s): J18.9 - Pneumonia, unspecified organism Code(s): J18.9 - Pneumonia, unspecified organism Status: Acute Assessment and Plan: Chest x-ray on admission showing concerns for right lower lobe pneumonia. Repeat chest x-ray this morning was reviewed. Chest x-ray was read as clear but still appears to be some clinical findings in the right lower lobe. Patient with productive cough and had low-grade fever to suggest pneumonia. White count 18K and improved initially but higher at 19K today felt related to steroids. Treated with Rocephin and azithromycin. Will send home with [facility]. (4) Hypertension: Qualifiers: Hypertension type: essential hypertension Qualified Code(s): I10 - Essential (primary) hypertension Code(s): I10 - Essential (primary) hypertension Status: Acute Assessment and Plan: Patient with accelerated hypertension on admission. Most likely related to her respiratory failure. Patient also states she has elevated BP at home for the past few months. Also, that she has not been taking one of her anti-HTN meds at home. Medications adjusted here but will need further titration as outpatient. (5) Suspected COVID-19 virus infection: Code(s): Z20.828 - Contact with and (suspected) exposure to other viral communicable diseases Status: Acute Assessment and Plan: COVID negative. Isolation stopped. (6) CKD (chronic kidney disease) stage 3, GFR 30-59 ml/min: Code(s): N18.3 - Chronic kidney disease, stage 3 (moderate) Status: Acute Assessment and Plan: Patient has chronic kidney disease. She no longer follows with nephrology. Creatinine ranges from 1.4 to 2.3. Creatinine 2.1 on admission but much improved. BUN is elevated at 54 but could be related the steroids. We held lisinopril and HCTZ. She did get IV fluids in the ER. Plan to resume lisinopril at discharge with close monitoring of renal function. Also with metabolic nongap acidosis. Probably related to her CKD or from ketosis. Lactic level was normal. Bicarb returned to normal (7) Diastolic heart failure: Qualifiers: Heart failure chronicity: chronic Qualified Code(s): I50.32 - Chronic diastolic (congestive) heart failure Code(s): I50.30 - Unspecified diastolic (congestive) heart failure Status: Acute Assessment and Plan: No pedal edema, gallop or elevated JVP to suggest CHF. CXR reviewed and more concerning for PNA and COPD exacerbation. (8) Smoker: Code(s): F17.200 - Nicotine dependence, unspecified, uncomplicated Status: Acute Assessment and Plan: Patient has been educated about the benefits of smokin
[2019-10-12 14:00] VITALS: BP 181/70; PULSE 75; RESP 18; TEMP 36.6; O2SAT 98
--- NOTE | 2019-10-20 15:05 | PC.NURSE ---
Bllod cx is negative. Dr. Shilo grayson.
== END 2019-10-12 15:15 | disposition home or self-care (01) | DRG 190 ==
LOC: ANHED 06:39 → ANH3MEDSUR 07:22
PROVIDERS: Admitting Provider Internal Medicine; Emergency Provider Emergency Medicine; PCP Family Medicine; Visit Provider Internal Medicine
DX: J44.1 Chronic obstructive pulmonary disease with (acute) exacerbation (principal); J96.01 Acute respiratory failure with hypoxia; J18.9 Pneumonia, unspecified organism; I13.0 Hypertensive heart and chronic kidney disease with heart failure and stage 1 through stage 4 chronic kidney disease, or unspecified chronic kidney disease; I50.32 Chronic diastolic (congestive) heart failure; N18.3 Chronic kidney disease, stage 3 (moderate); Z20.828 Contact with and (suspected) exposure to other viral communicable diseases; J44.0 Chronic obstructive pulmonary disease with (acute) lower respiratory infection; F17.200 Nicotine dependence, unspecified, uncomplicated; K21.9 Gastro-esophageal reflux disease without esophagitis; M79.7 Fibromyalgia; E78.5 Hyperlipidemia, unspecified; E03.9 Hypothyroidism, unspecified; I34.0 Nonrheumatic mitral (valve) insufficiency; G25.81 Restless legs syndrome; Z96.641 Presence of right artificial hip joint
CPT/HCPCS: 36415; 36600; 71045; 80048; 80069; 81001; 82805; 83605; 83735; 85025; 85027; 87040; 87635; 93005; 94640; 96361; 96365; 96367; 96375; 99285; A9270; C9803; J0131; J0360; J0456; J0696; J2930; J7030; J7512; U0003

== ENCOUNTER 2020-09-17 09:49 | Outpatient (CLI) | payer MEDICARE, MEDICAID, SELFPAY ==
[2020-09-17 10:09] LABS: Hematocrit 35.4 % (35.0-49.0); Immature Reticulocyte Fraction 8.4 % (2.0-16.52); Mean Corpuscular HGB Conc 33.9 g/dL (32.0-36.0); Mean Corpuscular Hemoglobin 31.4 pg (27.0-31.0); Mean Corpuscular Volume 92.7 fL (78.0-102.0); Mean Platelet Volume 9.7 fl (9.2-11.8); Platelet Count Result 339 K/mm3 (150-420); Red Blood Count 3.82 M/mm3 (4.20-5.40); Red Cell Distribution Width 12.3 % (11.6-14.4); Reticulocyte Hemoglobin Conten 37.2 pg (28.0-35.0); Reticulocyte Percent 2.01 % (0.50-1.50); Reticulocytes Absolute 0.08 M/mm3 (0.02-0.1); White Blood Count 10.7 K/mm3 (4.8-10.8)
[2020-09-17 10:20] LABS: Hemoglobin A1C 5.8 % (<5.7)
[2020-09-17 11:09] LABS: Alanine Aminotransferase 18 U/L (14-59); Albumin Level 3.9 g/dL (3.4-5.0); Alkaline Phosphatase 68 U/L (46-116); Anion Gap 12 mmol/L (8-16); Aspartate Amino Transferase 12 U/L (15-37); Bilirubin,Total 0.4 mg/dL (0.00-1.00); Blood Urea Nitrogen 24 mg/dL (7-18); Calcium 9.4 mg/dL (8.5-10.1); Carbon Dioxide 28 mmol/L (21-32); Chloride 99 mmol/L (98-108); Cholesterol 184 mg/dL (0-200); Estimated Glomerular Filt Rate 33; Ferritin 156 ng/mL (8-252); Free T4 Free Thyroxine Reflex 1.54 ng/dL (0.76-1.46); Glucose 99 mg/dL (70-99); HDL Direct 46 mg/dL (40-60); Iron 90 ug/dL (50-170); LDL Cholesterol Calculated 107 mg/dL (<130); Osmolality Calculated 292 mOsm/kg (285-295); Percent Iron Saturation 32 % (12-57); Potassium 4.2 mmol/L (3.5-5.1); Sodium 139 mmol/L (136-145); Total Protein 7.1 g/dL (6.4-8.2); Triglycerides 156 mg/dL (0-150); Vitamin B12 374 pg/mL (193-986)
[2020-09-20 03:38] LABS: Vitamin D 25 Hydroxy 28 ng/mL (30-100)
== END 2020-09-17 09:50 | disposition home or self-care (01) ==
PROVIDERS: PCP Family Medicine; Visit Provider Family Medicine
DX: D64.9 Anemia, unspecified (principal); E11.9 Type 2 diabetes mellitus without complications; E55.9 Vitamin D deficiency, unspecified; E78.2 Mixed hyperlipidemia; E03.9 Hypothyroidism, unspecified; N18.9 Chronic kidney disease, unspecified
CPT/HCPCS: 36415; 80053; 80061; 82306; 82607; 82728; 82746; 83036; 83540; 83550; 84439; 84443; 85027; 85046

== ENCOUNTER 2020-10-07 12:34 | Outpatient (CLI) | payer MEDICARE, MEDICAID, SELFPAY ==
--- NOTE | ~2020-10-07 | DEXA_ITS ---
Bone Density Report Name: Taryn Greco Age: 55 Sex: Female Ethnicity: White Date of : 1965 Indication: hyperparathyroidism; height loss; Referring Provider: Jennifer Peraza Study: Bone densitometry was performed. Exam Date: October 07, 2020 Accession number: [id number] Bone Density: Region BMD T-score Z-score Classification AP Spine(L1-L4) 1.131 0.8 2.0 Normal Femoral Neck (Left) 0.739 -1.0 0.2 Normal Total Hip (Left) 0.867 -0.6 0.2 Normal World Health Organization criteria for BMD impression classify patients as: Normal (T-score at or above -1.0), Osteopenia (T-score between -1.0 and -2.5), or Osteoporosis (T-score at or below -2.5). 10-year Fracture Risk: FRAX not reported because: All T-scores for Spine Total, Hip Total, Femoral Neck at or above -1.0 Clinical Information Provided by Patient: Smokes Has used the following medications: Vitamin D Has the following medical conditions: Hyperparathyroidism Patient maximum height was 67 Menopause Age: 53 No regular weight bearing exercise Drinks caffeinated beverages Onset of menses at age 10 Number of children 3 Impression: The patient has normal bone mass. The patient has risk factors, including: smoking. Discussion: BONE DENSITY IS ABOVE THE MINIMUM DESIRABLE LEVEL AT ALL SKELETAL SITES TESTED. This patient?s bone mineral density is above the minimum desirable level (T-score -1.0 or better) at all sites measured. The patient should follow a healthful lifestyle (good nutrition with adequate calcium and vitamin D, and appropriate weight-bearing exercise). Follow-Up: Consider repeating this study in 5 years or sooner if there is some new clinical indication. Reported by: Dr. Rodrigue Marinelli on 10/07/2020 1:16:00 PM. Reviewed, dictated and finalized at location A. [facility]
--- NOTE | ~2020-10-07 | MM_ITS ---
EXAMINATION: MM screening [facility] BI w pearl HISTORY: Screening mammogram TECHNIQUE: Craniocaudal and mediolateral oblique 3-D tomosynthesis images were obtained and synthetic 2-D images were generated. CAD analysis was submitted and interpreted. COMPARISON: 11/21/2017, 06/04/2015, 03/21/2010 BREAST PARENCHYMAL COMPOSITION: There are scattered areas of fibroglandular density. FINDINGS: There is no evidence of suspicious mass, calcification, or architectural distortion to sugg est malignancy in either breast. There has been no suspicious interval change. IMPRESSION: 1. No mammographic evidence of malignancy. 2. Recommend routine screening mammography in one year. BI-RADS Category 1: Negative Reviewed, dictated and finalized at location A.
== END 2020-10-07 12:35 | disposition home or self-care (01) ==
LOC: CHSIMG 12:37
PROVIDERS: PCP Family Medicine; Visit Provider Family Medicine
DX: Z12.31 Encounter for screening mammogram for malignant neoplasm of breast (principal); Z78.0 Asymptomatic menopausal state
CPT/HCPCS: 77063; 77067; 77080

== ENCOUNTER → 2020-12-15 03:43 | Outpatient (CLI) | payer MEDICARE, MEDICAID, SELFPAY ==
[2020-12-15 22:41] LABS: SARS-CoV-2 RNA PCR Negative
== END ==
PROVIDERS: PCP Family Medicine; Visit Provider Physician Assistant
DX: Z20.822 Contact with and (suspected) exposure to COVID-19 (principal); R05 Cough
CPT/HCPCS: C9803; U0003; U0005

== ENCOUNTER → 2021-02-07 13:09 | Emergency (ER) | payer MEDICARE, MEDICAID, SELFPAY | END | disposition left against medical advice (07) | LOC: CHSED 13:12 | PROVIDERS: Emergency Provider Emergency Medicine; PCP Family Medicine | DX: Z04.9 Encounter for examination and observation for unspecified reason (principal); Z53.8 Procedure and treatment not carried out for other reasons | CPT/HCPCS: 99199 ==

== ENCOUNTER 2021-02-07 14:16 | Inpatient (IN) | payer MEDICARE, MEDICAID, SELFPAY ==
[2021-02-07] VITALS (8 sets, daily range): BP systolic 124–158; BP diastolic 71–90; PULSE 85–94; RESP 13–98; TEMP 36.7; O2SAT 88–97
--- NOTE | ~2021-02-07 | NM_ITS ---
EXAMINATION: NM pulmonary perfusion EXAM DATE: 02/07/2021 21:46 INDICATION: Shortness of breath. TECHNIQUE: A perfusion lung scan was performed. The patient was injected with 3.2 mCi technetium 99m MAA and imaged. Modified PIOPED 2 criteria used for interpretation of perfusion without ventilation study (recent chest x-ray instead for comparison). Correlation is made to chest x-ray earlier same da te. FINDINGS: There are multiple segmental and subsegmental peripheral perfusion defects bilaterally. The re is no corresponding airspace disease on chest x-ray. High probability pulmonary embolism. IMPRESSION: High probability pulmonary embolism. I discussed this result with Ania Gale MD at 02/07/2021 21:55 RN PAR[place]GAL. Reviewed, dictated and finalized at location A. [place]
--- NOTE | ~2021-02-07 | XR_ITS ---
EXAMINATION: XR chest 1V portable 02/11/2021 09:09 INDICATION: Pulmonary embolism. Shortness of breath. PROCEDURE: AP portable chest COMPARISON: Comparison to multiple prior studies sequentially, with oldest reviewed study dated 05/29. FINDINGS: The lungs are clear. The cardiomediastinal silhouette is within normal limits. There are no pleural effusions. There is no pneumothorax suspected. IMPRESSION: 1: NO ACUTE CARDIOPULMONARY DISEASE. Reviewed, dictated and finalized at location A. [facility]
--- NOTE | ~2021-02-07 | XR_ITS ---
EXAMINATION: XR chest 2V 02/07/2021 14:34 INDICATION: Shortness of breath, cough and fever PROCEDURE: 2 view chest COMPARISON: Comparison to multiple prior studies sequentially, with oldest reviewed study dated 08/25. FINDINGS: The lungs are clear. The cardiomediastinal silhouette is within normal limits. There are no pleural effusions. There is no pneumothorax suspected. IMPRESSION: 1: NO ACUTE CARDIOPULMONARY DISEASE. Reviewed, dictated and finalized at location A. N MAN
--- NOTE | ~2021-02-07 | US_ITS ---
EXAMINATION: US venous doppler [facility] DATE: 02/08/2021 16:16 INDICATION: Shortness of breath, abnormal VQ scan TECHNIQUE: Saeed scale images without and with compression and Doppler images of the bilateral lower e xtremity veins were obtained. COMPARISON: None FINDINGS: The right common femoral vein, profunda femoral vein, femoral vein, popliteal vein, peroneal trunk, p osterior tibial veins, and greater saphenous vein are patent. The left common femoral vein, profunda femoral vein, femoral vein, popliteal vein, peroneal trunk, po sterior tibial veins, and greater saphenous vein are patent. IMPRESSION: 1. Patent bilateral lower extremity veins. No evidence of deep venous thrombosis. Reviewed, dictated and finalized at location B. [employer] IMPRESSION: 1. Patent bilateral lower extremity veins. No evidence of deep venous thrombosi s.
--- NOTE | ~2021-02-07 | US_ITS ---
EXAMINATION: US renal BI EXAM DATE: 02/08/2021 16:14 INDICATION: Worsening renal failure . TECHNIQUE: Multiple grayscale and Doppler images of the kidneys were obtained (by a technologist who performed the scan) and subsequently reviewed. Comparison is made to prior examination from 09/05/2016. FINDINGS: Right kidney: There is normal contour and mildly increased echogenicity. It measures 6.6 x 3.1 x 3.7 centimeters, moderately atrophic. Also renal cortical thinning with echogenic fatty hilum. There are no focal renal lesions identified. There is no hydronephrosis. Left kidney: There is normal contour and mildly increased echogenicity. It measures 9.9 x 5.6 x 6.3 centimeters, mildly atrophic. Exophytic 2 cm cyst. There is no hydronephrosis. Bladder unremarkable. IMPRESSION: 1. Moderate right, mild left renal atrophy. 2. Mildly echogenic cortices, medical renal disease. 3. No hydronephrosis. Reviewed, dictated and finalized at location A. [employer]
--- NOTE | 2021-02-07 14:22 | ECG_ITS ---
Measurements Intervals [place] Rate: 84 P: 66 UT: 170 QRS: 20 QRSD: 86 T: 127 QT: 336 QTc: 398 Interpretive Statements SINUS RHYTHM LEFT VENTRICULAR HYPERTROPHY AND ST-T CHANGE DELAYED PRECORDIAL R/S TRANSITION BORDERLINE ST ABNORMALITY- INF/LAT LEADS BASELINE ARTIFACT- I, II, III, AVR, AVL, AVF BORDERLINE ECG Electronically Signed On 02-07-2021 16:22:01 COMPENSATOR by Lion Parr D.O.
[2021-02-07 15:14] LABS: Hemoglobin 11.7 g/dL (12.0-15.0); Mean Corpuscular HGB Conc 33.4 g/dl (32-36); Mean Corpuscular Hemoglobin 31.7 pg (26-34); Mean Corpuscular Volume 94.9 fl (80-100); Mean Platelet Volume 10.1 fl (7.4-10.4); Platelet Count Result 288 k/mm3 (150-375); Red Blood Count 3.69 M/mm3 (4.2-5.4); Red Cell Distribution Width 13.1 % (11.5-14.5); White Blood Count 18.5 K/mm3 (4.5-10.0)
[2021-02-07 15:34] LABS: Anion Gap 16 mmol/L (8-16); Blood Urea Nitrogen 32 mg/dL (7-17); Calcium 9.7 mg/dL (8.4-10.2); Carbon Dioxide 20 mmol/L (22-30); Chloride 96 mmol/L (98-107); Estimated CRCL calculation 31 ml/min; Estimated Glomerular Filt Rate 24; Glucose 115 mg/dL (65-110); Potassium 4.1 mmol/L (3.4-5.0); Sodium 132 mmol/L (137-145)
[2021-02-07 15:58] LABS: Band Neutrophils Percent 16 % (0-6); Lymphocytes Absolute Manual 1.48 K/mm3 (1.1-4.5); Monocytes Absolute Manual 0.55 K/mm3 (0.1-0.90); Monocytes Percent Manual 3 % (3-9); Neutrophils Absolute Manual 16.46 K/mm3 (1.7-7.2); Neutrophils Percent Manual 73 % (46-73); Total Cells Counted 100
[2021-02-07 15:59] LABS: Platelet Estimate Adequate (Adequate)
--- NOTE | 2021-02-07 16:38 | ED.GENADULT ---
HPI - General Adult General Chief complaint: Shortness of Breath/Dyspnea Stated complaint: congestion, fever, sob Time Seen by Provider: 02/07/21 16:09 Source: patient and RN notes reviewed History of Present Illness HPI narrative: Patient is a 55 y/o female complaining of fever starting 2 days ago. She states that she had temp of 102.8 earlier today. She took Tylenol, which helps some with her fever. She also has cough, SOB, nasal congestion and chest pain. Related Data Home Medications Medication Instructions Recorded Confirmed loratadine 10 mg tablet 10 mg PO DAILY 05/01/19 12/16/20 clonidine HCl 0.1 mg tablet 0.2 mg PO BID tablet 01/20/20 12/16/20 hydrochlorothiazide 25 mg tablet 25 mg PO DAILY 01/20/20 12/16/20 lisinopril 40 mg tablet 40 mg PO BID tablet 09/13/20 12/16/20 Allergies Allergy/AdvReac Type Severity Reaction Status Date / Time levofloxacin Allergy Unknown HIVES Verified 12/16/20 14:19 Penicillins Allergy Unknown Unknown Verified 12/16/20 14:19 Review of Systems Constitutional: Constitutional: Denies chills, Reports fever(s), Denies headache(s) and Denies weakness Eyes: Eyes: Denies blurry vision ENT: Denies headache(s) and Denies neck pain Cardiovascular: Cardiovascular: Reports chest pain and Reports dyspnea Respiratory: Respiratory: Reports cough and Reports dyspnea Gastrointestinal: Gastrointestinal: Denies abdominal pain, Denies diarrhea, Denies nausea and Denies vomiting Genitourinary: Genitourinary: Denies hematuria and Denies dysuria Musculoskeletal: Musculoskeletal: Denies back pain and Denies neck pain Neurologic: Denies headache(s) and Denies weakness [facility] Past Medical History Medical History Chronic, continuous use of opioids CKD (chronic kidney disease) stage 3, GFR 30-59 ml/min COPD (chronic obstructive pulmonary disease) Diastolic heart failure Fibromyalgia GERD with esophagitis Hyperlipidemia Hypertension Hypothyroidism determined by thyroid function test Mild mitral regurgitation Pneumonia Recurrent boils Restless leg syndrome Smoker SVT (supraventricular tachycardia) Surgical History Surgical History H/O tubal ligation History of tonsillectomy Status post total hip replacement, right 2016 Family History Family History Father Family history of cardiovascular disease Diabetes mellitus Family history of lung cancer Family history of diabetes mellitus in first degree relative Hypertension Mother Diabetes mellitus Family history of diabetes mellitus in first degree relative Family history of thyroid disease Hypertension Social History Social History Social History: Patient smokes a pack a day for past 43 years. No alcohol or drug use. Lives on with her . She is a full code. She nominated her to be the individual making medical decisions for her if she is not able. Smoking packs per day: 1 Smoking cigarettes per day: 20.0 Years smoked: 43 Smoking pack-years: 43.00 Tobacco type: cigarettes Second hand tobacco smoke exposure: Yes Additional smoking assessment comments: Patient started back smoking about 6 months ago. Alcohol intake: never Substance use: current Substance use type: prescription drug Gender identity (if verbalized by the patient): Female Spiritual care concerns: No Exam Const: General: no acute distress and well developed Orientation/consciousness: oriented to person, oriented to place, oriented to time and patient oriented x3 HENMT: Head: normocephalic Ears: external ears normal General nose exam: Normal external nose present Eyes: General: appearance normal, both eyes and all related structures Conjunctivae: conjunctivae normal Neck: Neck: normal visual inspection and full ROM
[2021-02-07] MEDS: IPRATROPIUM BR 0.02% INH SOLN 0.5 MG/2.5 ML VIAL INHALATION (17:17)
[2021-02-07] MEDS: ALBUTEROL SULFATE NEB 2.5 MG/3 ML INH 1.25 MG INHALATION (17:19)
[2021-02-07 17:22] LABS: Lactic Acid Reflex 1.2 mmol/L (0.7-2.1)
[2021-02-07 17:25] LABS: Troponin I 0.056 ng/mL (0.000-0.034)
[2021-02-07] MEDS: ALBUTEROL SULFATE NEB 2.5 MG/3 ML INH 3 MG INHALATION (17:29)
[2021-02-07] MEDS: methylPREDNISolone SOD SUCC 125 MG VIAL IV PUSH (19:10)
[2021-02-07 19:26] LABS: D Dimer 1.54 ug/mL (<0.48)
[2021-02-07 19:31] LABS: Troponin I 0.085 ng/mL (0.000-0.034)
--- NOTE | 2021-02-07 22:17 | PM.IMHP ---
H&P: HPI History of Present Illness Date/Time: 02/07/21 22:17 this is a 55-year-old female patient who still continues to smoke and has a history of COPD and congestive heart failure. The patient stated that she had a fever of 102.8 earlier today and she took some Tylenol. And that did help with the fever but she has been short of breath and having a cough and nasal congestion as well as chest pain. The patient denies having any congestive heart failure however I did find a previous echo that shows she has diastolic dysfunction. Her white count was noted to be 18.5. H&H is 11.7 and 35.0. Neutrophils are 16.46. D-dimer was 1.54. However due to her renal failure they were not able to do a CT scan her BUN was 32 and creatinine is 2.1. The patient's baseline is anywhere from 1.3-2.1. Her chest x-ray was read as no acute cardiopulmonary disease. The patient's V/Q scan did read high probability for pulmonary embolism. The patient was started on heparin drip. The patient was started on nebulizer treatments and Solu-Medrol as well for her COPD. The patient has seen a hand almond blancher here in the past and was told to follow up outpatient for PFT and has not ever had the PFT performed. The patient is currently on oxygen at 2 L per nasal cannula and is not usually on any oxygen at home. COVID PCR is pending. The patient is being admitted to inpatient services on the date of service of 02/07/2021. Chief Complaint: Shortness of breath Review of Systems Review of Systems: All systems reviewed & are unremarkable except as noted in HPI and below Constitutional: Constitutional: Reports as per HPI and Reports no additional constitutional complaints Eyes: Eyes: Reports as per HPI and Reports no additional eye complaints ENT: Reports system reviewed and no additional complaints, except as documented and Reports Normal hearing present Cardiovascular: Cardiovascular: Reports no additional cardiovascular complaints Respiratory: Respiratory: Reports no additional respiratory complaints and Reports no additional respiratory complaints Gastrointestinal: Gastrointestinal: Reports as per HPI and Reports no additional gastrointestinal complaints Musculoskeletal: Musculoskeletal: Reports no additional musculoskeletal complaints Integumentary/Breasts: Skin/Breast: Reports system reviewed and no additional complaints, except as docu and Reports as per HPI Neurologic: Reports system reviewed and no additional complaints, except as documented, Reports as per HPI and Reports Normal hearing present Psychiatric: Psychiatric: Reports no additional psychiatric complaints and Reports as per HPI Endocrine: Endocrine: Reports no additional endocrine complaints Hematologic/Lymphatic: Hematologic/Lymphatic: Reports no additional hematologic/lymphatic complaints Allergic/Immunologic: Allergic/Immunologic: Reports no additional allergic/immunologic complaints [facility] Past Medical History Medical History Chronic, continuous use of opioids CKD (chronic kidney disease) stage 3, GFR 30-59 ml/min COPD (chronic obstructive pulmonary disease) Diastolic heart failure Fibromyalgia GERD with esophagitis Hyperlipidemia Hypertension Hypothyroidism determined by thyroid function test Mild mitral regurgitation Pneumonia Recurrent boils Restless leg syndrome Smoker SVT (supraventricular tachycardia) Surgical History Surgical History H/O tubal ligation History of tonsillectomy Status post total hip replacement, right 2016 Family History Family History Father Family history of cardiovascular disease Diabetes mellitus Family history of lung cancer Family history of diabetes mellitus in first degree relative Hypertension Mother Diabetes mellitus Family history of diabetes mellitus in first degree relative F
[2021-02-07 22:36] LABS: Basophils Absolute Auto 0.1 K/mm3 (0.0-0.1); Basophils Percent Auto 0.4 % (0.2-1.2); Eosinophils Absolute Auto 0.1 K/mm3 (0-0.3); Eosinophils Percent Auto 0.5 % (0-4.4); Hematocrit 35.9 % (37.0-47.0); Hemoglobin 12.2 g/dL (12.0-15.0); Immature Granulocyte Absolute 0.08 K/mm3 (0.00-0.031); Immature Granulocyte Percent A 0.5 % (0-0.5); Lymphocytes Absolute Auto 0.65 K/mm3 (0.9-3.2); Lymphocytes Percent Auto 4.1 % (18.3-44.2); Mean Corpuscular Volume 94.2 fl (80-100); Mean Platelet Volume 9.8 fl (7.4-10.4); Monocytes Absolute Auto 0.5 K/mm3 (0.1-0.6); Monocytes Percent Auto 2.9 % (2.6-8.5); Neutrophils Absolute Auto 14.4 K/mm3 (1.3-6.7); Neutrophils Percent Auto 91.6 % (45.5-73.1); Platelet Count Result 312 k/mm3 (150-375); Red Blood Count 3.81 M/mm3 (4.2-5.4); Red Cell Distribution Width 13.1 % (11.5-14.5); White Blood Count 15.7 K/mm3 (4.5-10.0)
[2021-02-07] MEDS: HEPARIN SOD/D5W 100 UNITS/ML 25,000 UNITS/250 ML BAG 13 UNITS IV CONT (22:38)
[2021-02-07] MEDS: HEPARIN SODIUM 5,000 UNITS/ML VIAL 6000 UNITS IV PUSH (22:40)
[2021-02-07 22:45] LABS: INR 1.1; Prothrombin Time 14.2 Seconds (11.1-14.7)
[2021-02-07 22:46] LABS: Partial Thromboplastin Time 39.7 SECONDS (22.3-36.8)
[2021-02-07 23:06] LABS: Troponin I 0.068 ng/mL (0.000-0.034)
[2021-02-08] VITALS (17 sets, daily range): BP systolic 143–220; BP diastolic 79–122; PULSE 77–106; RESP 18–24; TEMP 36.4–36.8; O2SAT 94–98; BMI 32.8
--- NOTE | 2021-02-08 | ECHO_ITS ---
Patient Info Name: Taryn Greco Age: 55 years : 1965 Gender: Female Ht: 67 in Wt: 202 lbs BSA: 2.11 m2 HR: 96 bpm BP: 170 / 94 mmHg Heart Rhythm: Sinus Rhythm Exam Date: 02/08/2021 1:41 PM Exam Location: [facility] Patient Status: Inpatient Admit Date: 02/07/2021 Staff Ordering Physician: Ange Prakash NP College Administrator: Clifton Graham RDCS, RT Attending Provider: Carol Chaves PA-C Referring Physician: Olinda BUTLER; Exam Type: CA echo doppler color flow Study Info Indications - HIGH PROBABLILITY FOR PE AND HX OF CHF Complete two-dimensional, color flow and Doppler transthoracic echocardiogram is performed. Strain analysis performed. Summary 1. Complete two-dimensional, color flow and Doppler transthoracic echocardiogram is performed. 2. Normal left ventricular size with moderate concentric hypertrophy. Good systolic function of all segments with no segmental wall motion abnormalities. The ejection fraction is calculated to be 65% visually is 65-70%. Grade 2 diastolic dysfunction is present. The global longitudinal strain is mildly diminished at -14% suggesting a degree of systolic dysfunction. 3. Right ventricular chamber dimension is mildly enlarged with normal function. 4. Left atrial chamber dimension is mildly enlarged. 5. There is mild mitral valve regurgitation. 6. There is mild tricuspid valve regurgitation. 7. Mild pulmonary hypertension, estimated pulmonary arterial systolic pressure is 39 mmHg. 8. Normal sinus rhythm. Left Ventricle Left ventricular chamber dimension is normal. Left ventricular systolic function is normal, estimated at 65-70%. There is moderately increased left ventricular wall thickness. Left ventricular septal wall motion is normal. The left ventricular diastolic function is grade II diastolic dysfunction. Global longitudinal strain is mildly elevated at -14 %. Right Ventricle Right ventricular chamber dimension is mildly enlarged with normal function. Right ventricular systolic function is normal. Left Atria Left atrial chamber dimension is mildly enlarged. Right Atria Right atrial chamber dimension is normal. Aortic Valve The aortic valve is trileaflet. There is no aortic valve sclerosis. There is no aortic valve stenosis. There is no aortic valve regurgitation. Pulmonic Valve The pulmonic valve is normal. There is no pulmonic valve stenosis. There is no pulmonic regurgitation. Mitral Valve The mitral valve has normal leaflets. There is no mitral valve stenosis. There is mild mitral valve regurgitation. Tricuspid Valve The tricuspid valve leaflets are normal. There is no significant tricuspid valve stenosis. There is mild tricuspid valve regurgitation. Mild pulmonary hypertension, estimated pulmonary arterial systolic pressure is 39 mmHg. Pericardium/Pleural The pericardium appears normal. There is no pericardial effusion. Inferior Vena Cava Normal inferior vena cava with >50% collapse upon inspiration consistent with Empty right atrial pressure, 10 mmHg. Aorta The aortic root size at the sinus of Valsalva is normal. The prox ascending aorta size is normal. Left Ventricular Outflow Tract Name Value Normal LVOT 2D
[2021-02-08] MEDS: methylPREDNISolone SOD SUCC 125 MG VIAL 60 MG IV PUSH ×4 (00:41→17:38)
[2021-02-08] MEDS: DULoxetine HCL 60 MG CAPSULE.DR PO ×2 (02:26→21:12)
[2021-02-08] MEDS: cloNIDine HCL 0.2 MG TABLET PO ×3 (02:26→21:12)
[2021-02-08] MEDS: ATORVASTATIN 20 MG TABLET PO ×2 (02:26→21:12)
[2021-02-08] MEDS: METOPROLOL TARTRATE INJ 5 MG/5 ML VIAL 10 MG IV PUSH (02:42)
[2021-02-08] MEDS: ALBUTEROL SULFATE (*SP) INHALER 2 PUFF INHALATION (02:54)
[2021-02-08] MEDS: HYDROcodone/acetaminophen (*CRX) 5-325 MG TABLET 1 TAB PO ×2 (04:14→21:23)
[2021-02-08 05:06] LABS: Basophils Absolute Auto 0.1 K/mm3 (0.0-0.1); Basophils Percent Auto 0.5 % (0.2-1.2); Eosinophils Absolute Auto 0.1 K/mm3 (0-0.3); Eosinophils Percent Auto 0.9 % (0-4.4); Hematocrit 33.9 % (37.0-47.0); Hemoglobin 11.4 g/dL (12.0-15.0); Immature Granulocyte Absolute 0.08 K/mm3 (0.00-0.031); Immature Granulocyte Percent A 0.6 % (0-0.5); Lymphocytes Absolute Auto 0.63 K/mm3 (0.9-3.2); Lymphocytes Percent Auto 4.6 % (18.3-44.2); Mean Corpuscular HGB Conc 33.6 g/dl (32-36); Mean Corpuscular Hemoglobin 32.4 pg (26-34); Mean Corpuscular Volume 96.3 fl (80-100); Monocytes Absolute Auto 0.2 K/mm3 (0.1-0.6); Monocytes Percent Auto 1.6 % (2.6-8.5); Neutrophils Absolute Auto 12.7 K/mm3 (1.3-6.7); Neutrophils Percent Auto 91.8 % (45.5-73.1); Platelet Count Result 284 k/mm3 (150-375); Red Blood Count 3.52 M/mm3 (4.2-5.4); Red Cell Distribution Width 13.1 % (11.5-14.5); White Blood Count 13.8 K/mm3 (4.5-10.0)
--- NOTE | 2021-02-08 05:09 | ADMGEN ---
This patient, Taryn Greco, was admitted to IMU Room 214-01 on 02/07/2021 at 0210. Patient/family oriented to hospital policies and general routines including ID bracelet, bed and alarms, visiting hours, pain management, procedures, bathroom and other care routines, personal items, smoking policy, room service/diet, and visiting hours. Information on how to activate the Rapid Response Team has been discussed. Patient/Family are encouraged to report perceived risks to care and to ask questions if they do not understand what they are told or what they should do.
[2021-02-08 05:26] LABS: Partial Thromboplastin Time 120.4 SECONDS (22.3-36.8)
[2021-02-08 05:29] LABS: Lactic Acid Reflex 1.7 mmol/L (0.7-2.1)
[2021-02-08 05:30] LABS: Alanine Aminotransferase 20 U/L (4-35); Albumin Level 4.6 g/dL (3.5-5.1); Alkaline Phosphatase 65 U/L (38-126); Anion Gap 18 mmol/L (8-16); Aspartate Amino Transferase 33 U/L (14-36); Bilirubin,Total 0.4 mg/dL (0.2-1.3); Blood Urea Nitrogen 39 mg/dL (7-17); Calcium 9.3 mg/dL (8.4-10.2); Carbon Dioxide 19 mmol/L (22-30); Chloride 94 mmol/L (98-107); Estimated CRCL calculation 30 ml/min; Estimated Glomerular Filt Rate 23; Glucose 232 mg/dL (65-110); Lactate Dehydrogenase 517 U/L (313-618); Magnesium 1.1 mg/dL (1.6-2.3); Potassium 4.2 mmol/L (3.4-5.0); Sodium 131 mmol/L (137-145)
[2021-02-08 06:22] LABS: Thyroid Stimulating Hormone Reflex 0.184 uIU/mL (0.465-4.68)
[2021-02-08 07:55] LABS: Free T4 Free Thyroxine Reflex 1.59 ng/dL (0.78-2.19)
[2021-02-08] MEDS: ALBUTEROL SULFATE (*SP) INHALER 4 PUFF INHALATION ×2 (09:39→14:16)
[2021-02-08] MEDS: MAGNESIUM SULF 2 GM/WATER 50ML 2 GM/50 ML BAG IVPB (10:07)
[2021-02-08 12:28] LABS: Partial Thromboplastin Time 130.1 SECONDS (22.3-36.8)
[2021-02-08 13:37] LABS: Total Triiodothyronine (T3) 0.67 NG/ML (0.97-1.69)
--- NOTE | 2021-02-08 16:33 | P.PNIM_ITS ---
Progress Note: A&P Assessment and Plan (1) Acute respiratory failure with hypoxia: Code(s): J96.01 - Acute respiratory failure with hypoxia Status: Acute Assessment and Plan: Noted to be hypoxic down to 88%. She has required up to 2 L supplemental O2 * Likely multifactorial related to PE, COPD, and suspected pneumonia * Currently requiring 1 L per nasal cannula and maintaining adequate O2 sats * Do supplemental O2 as needed with goal saturation 90% or above * Treatment for PE, COPD and pneumonia as described above (2) Pulmonary emboli: Code(s): I26.99 - Other pulmonary embolism without acute cor pulmonale Status: Acute Assessment and Plan: Presented with shortness of breath and fever. D-dimer noted to be elevated. Unable to obtain CTA given kidney disease therefore pulmonary perfusion scan performed which demonstrated high probability for pulmonary embolism * Continue heparin drip * Transition to Eliquis this evening at which time heparin drip will be discontinued. 10 mg b.i.d. x7 days, then 5 mg b.i.d. Care coordination following to parker this medication. * Venous Dopplers negative for DVT * Echocardiogram pending (3) Acute exacerbation of chronic obstructive pulmonary disease (COPD): Code(s): J44.1 - Chronic obstructive pulmonary disease with (acute) exacerbation Status: Acute Assessment and Plan: Noted to be hypoxic down to 88%. She has required up to 2 L supplemental O2. * Currently requiring 1 L per nasal cannula and maintaining adequate O2 sats * Continue Solu-Medrol * Continue Anoro Ellipta * Albuterol inhaler q6h scheduled. Transition to nebulizers of COVID-19 test is negative (4) Pneumonia: Code(s): J18.9 - Pneumonia, unspecified organism Status: Acute Assessment and Plan: Presented with shortness breath, fever, and leukocytosis. * Continue azithromycin and Rocephin * Supportive care to include bronchodilators, expectorants, antipyretics, incentive spirometry * Supplemental O2 as needed (5) Suspected COVID-19 virus infection: Code(s): Z20.828 - Contact with and (suspected) exposure to other viral communicable diseases Status: Acute Assessment and Plan: She has been tested for COVID-19 given fever and respiratory symptoms. * She has not been vaccinated for COVID-19. Denies any recent COVID positive contacts * Continue steroids * Continue isolation precautions while awaiting results * Not a candidate for remdesivir at this time given improving oxygen requirements * Would discontinue antibiotics if COVID-19 test is positive (6) Uixvr-ky-woydjxf kidney injury: Code(s): N17.9 - Acute kidney failure, unspecified; N18.9 - Chronic kidney disease, unspecified Status: Acute Assessment and Plan: Baseline creatinine appears to be 1.5-1.7, although somewhat fluctuant. Creatinine elevated at 2.1 at presentation * Creatinine is 2.2 today. Possibly ATN secondary to infection * Renal ultrasound showed moderate right and mild left renal atrophy without hydronephrosis * Continue to monitor renal function closely; consider Nephrology consultation if no further improvement * Renally dose medications and avoid nephrotoxins. (7) Hypothyroidism determined by thyroid function test: Code(s): E03.9 - Hypothyroidism, unspecified; R94.6 - Abnormal results of thyroid function studies Status: Acute Assessment and Plan: TSH slightly low with normal T4 * Continue levothyroxine * S
--- NOTE | 2021-02-08 16:33 | PM.IMPN ---
Progress Note: A&P Assessment and Plan (1) Acute respiratory failure with hypoxia: Code(s): J96.01 - Acute respiratory failure with hypoxia Status: Acute Assessment and Plan: Noted to be hypoxic down to 88%. She has required up to 2 L supplemental O2 Likely multifactorial related to PE, COPD, and suspected pneumonia Currently requiring 1 L per nasal cannula and maintaining adequate O2 sats Do supplemental O2 as needed with goal saturation 90% or above Treatment for PE, COPD and pneumonia as described above (2) Pulmonary emboli: Code(s): I26.99 - Other pulmonary embolism without acute cor pulmonale Status: Acute Assessment and Plan: Presented with shortness of breath and fever. D-dimer noted to be elevated. Unable to obtain CTA given kidney disease therefore pulmonary perfusion scan performed which demonstrated high probability for pulmonary embolism Continue heparin drip Transition to Eliquis this evening at which time heparin drip will be discontinued. 10 mg b.i.d. x7 days, then 5 mg b.i.d. Care coordination following to parker this medication. Venous Dopplers negative for DVT Echocardiogram pending (3) Acute exacerbation of chronic obstructive pulmonary disease (COPD): Code(s): J44.1 - Chronic obstructive pulmonary disease with (acute) exacerbation Status: Acute Assessment and Plan: Noted to be hypoxic down to 88%. She has required up to 2 L supplemental O2. Currently requiring 1 L per nasal cannula and maintaining adequate O2 sats Continue Solu-Medrol Continue Anoro Ellipta Albuterol inhaler q6h scheduled. Transition to nebulizers of COVID-19 test is negative (4) Pneumonia: Code(s): J18.9 - Pneumonia, unspecified organism Status: Acute Assessment and Plan: Presented with shortness breath, fever, and leukocytosis. Continue azithromycin and Rocephin Supportive care to include bronchodilators, expectorants, antipyretics, incentive spirometry Supplemental O2 as needed (5) Suspected COVID-19 virus infection: Code(s): Z20.828 - Contact with and (suspected) exposure to other viral communicable diseases Status: Acute Assessment and Plan: She has been tested for COVID-19 given fever and respiratory symptoms. She has not been vaccinated for COVID-19. Denies any recent COVID positive contacts Continue steroids Continue isolation precautions while awaiting results Not a candidate for remdesivir at this time given improving oxygen requirements Would discontinue antibiotics if COVID-19 test is positive (6) Fihep-xo-aosmucd kidney injury: Code(s): N17.9 - Acute kidney failure, unspecified; N18.9 - Chronic kidney disease, unspecified Status: Acute Assessment and Plan: Baseline creatinine appears to be 1.5-1.7, although somewhat fluctuant. Creatinine elevated at 2.1 at presentation Creatinine is 2.2 today. Possibly ATN secondary to infection Renal ultrasound showed moderate right and mild left renal atrophy without hydronephrosis Continue to monitor renal function closely; consider Nephrology consultation if no further improvement Renally dose medications and avoid nephrotoxins. (7) Hypothyroidism determined by thyroid function test: Code(s): E03.9 - Hypothyroidism, unspecified; R94.6 - Abnormal results of thyroid function studies Status: Acute Assessment and Plan: TSH slightly low with normal T4 Continue levothyroxine She will need repeat TSH with reflex as an outpatient upon resolution of acute illness (8) Smoker: Code(s): F17.200 - Nicotine dependence, unspecified, uncomplicated Status: Acute Assessment and Plan: She smokes 1 pack per day. Discussed smoking cessation at length for over 5 minutes. She would like to quit smoking but notes it will be difficult as she lives with other people who smoke. She reports that she did
[2021-02-08 16:54] LABS: SARS-CoV-2 RNA PCR Negative
[2021-02-08] MEDS: lisinopriL 20 MG TABLET 40 MG PO (17:34)
--- NOTE | 2021-02-08 18:51 | PC.NURSE ---
This patient, Taryn Greco, was transferred to [ [facility]] on 02/08/21 at 1850. Personal belongings sent with patient. Report given to [ RUBI Contreras @ [phone]]. Appropriate documentation sent with patient.
[2021-02-08] MEDS: PRAMIPEXOLE 0.125 MG TABLET PO (21:12)
[2021-02-08] MEDS: guaiFENesin 12 HR 600 MG TABCR PO (21:12)
[2021-02-08] MEDS: APIXABAN 5 MG TABLET 10 MG PO (21:13)
[2021-02-08] MEDS: ALBUTEROL SULFATE NEB 2.5 MG/0.5 ML INH INHALATION (21:45)
[2021-02-08] MEDS: IPRATROPIUM BR 0.02% INH SOLN 0.5 MG/2.5 ML VIAL INHALATION (21:45)
[2021-02-09] VITALS (16 sets, daily range): BP systolic 112–159; BP diastolic 77–83; PULSE 91–124; RESP 16–20; TEMP 36.1–36.6; O2SAT 94–97
[2021-02-09] MEDS: methylPREDNISolone SOD SUCC 125 MG VIAL 60 MG IV PUSH ×4 (00:04→21:06)
[2021-02-09] MEDS: ALBUTEROL SULFATE NEB 2.5 MG/0.5 ML INH INHALATION ×4 (01:49→21:01)
[2021-02-09] MEDS: IPRATROPIUM BR 0.02% INH SOLN 0.5 MG/2.5 ML VIAL INHALATION ×4 (01:49→21:01)
[2021-02-09] MEDS: LEVOTHYROXINE SODIUM 125 MCG TABLET PO (05:17)
[2021-02-09 06:35] LABS: Hematocrit 29.4 % (37.0-47.0); Hemoglobin 10.1 g/dL (12.0-15.0); Mean Corpuscular HGB Conc 34.4 g/dl (32-36); Mean Corpuscular Hemoglobin 32.3 pg (26-34); Mean Corpuscular Volume 93.9 fl (80-100); Mean Platelet Volume 10.5 fl (7.4-10.4); Platelet Count Result 302 k/mm3 (150-375); Red Blood Count 3.13 M/mm3 (4.2-5.4); Red Cell Distribution Width 12.9 % (11.5-14.5); White Blood Count 16.8 K/mm3 (4.5-10.0)
[2021-02-09 06:58] LABS: Anion Gap 13 mmol/L (8-16); Blood Urea Nitrogen 49 mg/dL (7-17); Calcium 8.7 mg/dL (8.4-10.2); Carbon Dioxide 23 mmol/L (22-30); Chloride 93 mmol/L (98-107); Estimated CRCL calculation 32 ml/min; Estimated Glomerular Filt Rate 24; Glucose 146 mg/dL (65-110); Magnesium 1.8 mg/dL (1.6-2.3); Potassium 3.7 mmol/L (3.4-5.0); Sodium 129 mmol/L (137-145)
[2021-02-09 07:10] LABS: CRP 13.7 mg/dL (<1.0)
[2021-02-09 08:22] LABS: Hemoglobin A1C 5.5 % (<5.7)
[2021-02-09] MEDS: APIXABAN 5 MG TABLET 10 MG PO (09:39)
[2021-02-09] MEDS: MONTELUKAST SODIUM 10 MG TABLET PO (09:40)
[2021-02-09] MEDS: cloNIDine HCL 0.2 MG TABLET PO ×2 (09:40→21:08)
[2021-02-09] MEDS: lisinopriL 20 MG TABLET 40 MG PO (09:40)
[2021-02-09] MEDS: hydroCHLOROthiazide 25 MG TABLET PO (09:40)
[2021-02-09] MEDS: guaiFENesin 12 HR 600 MG TABCR PO ×2 (09:40→21:07)
--- NOTE | 2021-02-09 15:52 | P.PNIM_ITS ---
Progress Note: A&P Assessment and Plan (1) Acute respiratory failure with hypoxia: Code(s): J96.01 - Acute respiratory failure with hypoxia Status: Acute Assessment and Plan: Noted to be hypoxic down to 88%. She has required up to 2 L supplemental O2 * Likely multifactorial related to PE, COPD, and pneumonia * She has been weaned to room air and is maintaining adequate O2 sats * Supplemental O2 as needed with goal saturation 90% or above * Treatment for PE, COPD and pneumonia as described above (2) Pulmonary emboli: Code(s): I26.99 - Other pulmonary embolism without acute cor pulmonale Status: Acute Assessment and Plan: Presented with shortness of breath and fever. D-dimer noted to be elevated. Unable to obtain CTA given kidney disease therefore pulmonary perfusion scan performed which demonstrated high probability for pulmonary embolism * Heparin drip discontinued. * Started on Eliquis but this was too costly based on insurance coverage so will transition to Xarelto. 15 mg BID x21 days then 20 mg daily. * Venous Dopplers negative for DVT * Echocardiogram reviewed with mildly enlarged right ventricle with normal function * BNP minimally elevated. Troponins mildly elevated. (3) Acute exacerbation of chronic obstructive pulmonary disease (COPD): Code(s): J44.1 - Chronic obstructive pulmonary disease with (acute) exacerbation Status: Acute Assessment and Plan: With diffuse wheezing on exam, slightly improved from prior exam yesterday * Continue Solu-Medrol, wean to q8h * Continue Anoro Ellipta * Scheduled albuterol and ipratropium nebs q6h (4) Pneumonia: Code(s): J18.9 - Pneumonia, unspecified organism Status: Acute Assessment and Plan: Presented with shortness breath, productive cough, fever, and leukocytosis. * Continue azithromycin and Rocephin * Supportive care to include bronchodilators, expectorants, antipyretics, incentive spirometry * Supplemental O2 as needed * Check urinary Legionella and pneumococcal antigens * COVID-19 test negative (5) Dgodh-id-grsxbto kidney injury: Code(s): N17.9 - Acute kidney failure, unspecified; N18.9 - Chronic kidney disease, uns pecified Status: Acute Assessment and Plan: Baseline creatinine appears to be 1.5-1.7, although somewhat fluctuant. Creatinine slightly elevated at 2.1 * Possibly ATN secondary to infection * Renal ultrasound showed moderate right and mild left renal atrophy without hydronephrosis * Continue to monitor renal function closely; consider Nephrology consultation if no further improvement * Renally dose medications and avoid nephrotoxins. * Hold lisinopril and HCTZ (6) Hypothyroidism determined by thyroid function test: Code(s): E03.9 - Hypothyroidism, unspecified; R94.6 - Abnormal results of thyroid function studies Status: Acute Assessment and Plan: TSH slightly low with normal T4 * Continue levothyroxine * She will need repeat TSH with reflex as an outpatient upon resolution of acute illness (7) Smoker: Code(s): F17.200 - Nicotine dependence, unspecified, uncomplicated Status: Acute Assessment and Plan: She smokes 1 pack per day. * Discussed smoking cessation at length. She would like to quit smoking but notes it will be difficult as she lives with other people who smoke. She reports that she did quit smoking for 3 weeks about 6 months ago and she felt great when doing so. * Declines need for nicotine p
--- NOTE | 2021-02-09 15:52 | PM.IMPN ---
Progress Note: A&P Assessment and Plan (1) Acute respiratory failure with hypoxia: Code(s): J96.01 - Acute respiratory failure with hypoxia Status: Acute Assessment and Plan: Noted to be hypoxic down to 88%. She has required up to 2 L supplemental O2 Likely multifactorial related to PE, COPD, and pneumonia She has been weaned to room air and is maintaining adequate O2 sats Supplemental O2 as needed with goal saturation 90% or above Treatment for PE, COPD and pneumonia as described above (2) Pulmonary emboli: Code(s): I26.99 - Other pulmonary embolism without acute cor pulmonale Status: Acute Assessment and Plan: Presented with shortness of breath and fever. D-dimer noted to be elevated. Unable to obtain CTA given kidney disease therefore pulmonary perfusion scan performed which demonstrated high probability for pulmonary embolism Heparin drip discontinued. Started on Eliquis but this was too costly based on insurance coverage so will transition to Xarelto. 15 mg BID x21 days then 20 mg daily. Venous Dopplers negative for DVT Echocardiogram reviewed with mildly enlarged right ventricle with normal function BNP minimally elevated. Troponins mildly elevated. (3) Acute exacerbation of chronic obstructive pulmonary disease (COPD): Code(s): J44.1 - Chronic obstructive pulmonary disease with (acute) exacerbation Status: Acute Assessment and Plan: With diffuse wheezing on exam, slightly improved from prior exam yesterday Continue Solu-Medrol, wean to q8h Continue Anoro Ellipta Scheduled albuterol and ipratropium nebs q6h (4) Pneumonia: Code(s): J18.9 - Pneumonia, unspecified organism Status: Acute Assessment and Plan: Presented with shortness breath, productive cough, fever, and leukocytosis. Continue azithromycin and Rocephin Supportive care to include bronchodilators, expectorants, antipyretics, incentive spirometry Supplemental O2 as needed Check urinary Legionella and pneumococcal antigens COVID-19 test negative (5) Hbard-pi-fhrpbjz kidney injury: Code(s): N17.9 - Acute kidney failure, unspecified; N18.9 - Chronic kidney disease, unspecified Status: Acute Assessment and Plan: Baseline creatinine appears to be 1.5-1.7, although somewhat fluctuant. Creatinine slightly elevated at 2.1 Possibly ATN secondary to infection Renal ultrasound showed moderate right and mild left renal atrophy without hydronephrosis Continue to monitor renal function closely; consider Nephrology consultation if no further improvement Renally dose medications and avoid nephrotoxins. Hold lisinopril and HCTZ (6) Hypothyroidism determined by thyroid function test: Code(s): E03.9 - Hypothyroidism, unspecified; R94.6 - Abnormal results of thyroid function studies Status: Acute Assessment and Plan: TSH slightly low with normal T4 Continue levothyroxine She will need repeat TSH with reflex as an outpatient upon resolution of acute illness (7) Smoker: Code(s): F17.200 - Nicotine dependence, unspecified, uncomplicated Status: Acute Assessment and Plan: She smokes 1 pack per day. Discussed smoking cessation at length. She would like to quit smoking but notes it will be difficult as she lives with other people who smoke. She reports that she did quit smoking for 3 weeks about 6 months ago and she felt great when doing so. Declines need for nicotine patch at this time (8) Hyponatremia: Code(s): E87.1 - Hypo-osmolality and hyponatremia Status: Acute Assessment and Plan: Sodium slightly low today at 129 Repeat this afternoon Further recommendations pending repeat labs to establish overall trend (9) Hypertension: Qualifiers: Hypertension type: essential hypertension Qualified Code(s): I10 - Essential (primary) hypertension Code(s)
[2021-02-09 17:12] LABS: Sodium 129 mmol/L (137-145)
[2021-02-09] MEDS: RIVAROXABAN 15 MG TABLET PO (17:42)
[2021-02-09] MEDS: DULoxetine HCL 60 MG CAPSULE.DR PO (21:07)
[2021-02-09] MEDS: ATORVASTATIN 20 MG TABLET PO (21:07)
[2021-02-09] MEDS: PRAMIPEXOLE 0.125 MG TABLET PO (21:07)
[2021-02-09] MEDS: HYDROcodone/acetaminophen (*CRX) 5-325 MG TABLET 1 TAB PO (21:14)
[2021-02-10] VITALS (18 sets, daily range): BP systolic 140–200; BP diastolic 71–104; PULSE 77–99; RESP 16–20; TEMP 36–36.6; O2SAT 93–97
[2021-02-10] MEDS: ALBUTEROL SULFATE NEB 2.5 MG/0.5 ML INH INHALATION ×4 (01:37→19:55)
[2021-02-10] MEDS: IPRATROPIUM BR 0.02% INH SOLN 0.5 MG/2.5 ML VIAL INHALATION ×4 (01:37→19:55)
[2021-02-10] MEDS: methylPREDNISolone SOD SUCC 125 MG VIAL 60 MG IV PUSH ×3 (05:35→22:06)
[2021-02-10] MEDS: LEVOTHYROXINE SODIUM 125 MCG TABLET PO (05:35)
[2021-02-10 07:02] LABS: Hematocrit 28.9 % (37.0-47.0); Mean Corpuscular HGB Conc 34.6 g/dl (32-36); Mean Corpuscular Hemoglobin 31.5 pg (26-34); Mean Corpuscular Volume 91.2 fl (80-100); Mean Platelet Volume 10.3 fl (7.4-10.4); Platelet Count Result 334 k/mm3 (150-375); Red Blood Count 3.17 M/mm3 (4.2-5.4); Red Cell Distribution Width 12.7 % (11.5-14.5); White Blood Count 16.7 K/mm3 (4.5-10.0)
[2021-02-10 07:10] LABS: Anion Gap 9 mmol/L (8-16); Blood Urea Nitrogen 51 mg/dL (7-17); Calcium 8.6 mg/dL (8.4-10.2); Carbon Dioxide 26 mmol/L (22-30); Chloride 93 mmol/L (98-107); Estimated CRCL calculation 37 ml/min; Estimated Glomerular Filt Rate 29; Glucose 139 mg/dL (65-110); Magnesium 1.8 mg/dL (1.6-2.3); Potassium 3.6 mmol/L (3.4-5.0); Sodium 128 mmol/L (137-145)
[2021-02-10] MEDS: RIVAROXABAN 15 MG TABLET PO ×2 (08:00→16:27)
[2021-02-10] MEDS: cloNIDine HCL 0.2 MG TABLET PO ×2 (08:34→21:21)
[2021-02-10] MEDS: MONTELUKAST SODIUM 10 MG TABLET PO (08:34)
[2021-02-10] MEDS: guaiFENesin 12 HR 600 MG TABCR PO ×2 (08:34→21:21)
[2021-02-10] MEDS: UMECLIDINIUM/VILANTEROL 62.5-25 MCG ELLIPTA 1 PUFF INHALATION (09:25)
--- NOTE | 2021-02-10 14:21 | PC.NURSE ---
UA collected and send to lab. Awaiting analysis.
[2021-02-10 15:08] LABS: Creatinine Urine 59.4 mg/dL
[2021-02-10 15:14] LABS: Sodium Urine Random 31 meq/L
--- NOTE | 2021-02-10 15:57 | P.PNIM_ITS ---
Progress Note: A&P Assessment and Plan (1) Acute respiratory failure with hypoxia: Code(s): J96.01 - Acute respiratory failure with hypoxia Status: Acute Assessment and Plan: Noted to be hypoxic down to 88%. She has required up to 2 L supplemental O2 * Likely multifactorial related to PE, COPD, and pneumonia * She has been weaned to room air and is maintaining adequate O2 sats * Supplemental O2 as needed with goal saturation 90% or above * Treatment for PE, COPD and pneumonia as described above (2) Pulmonary emboli: Code(s): I26.99 - Other pulmonary embolism without acute cor pulmonale Status: Acute Assessment and Plan: Presented with shortness of breath and fever. D-dimer noted to be elevated. Unable to obtain CTA given kidney disease therefore pulmonary perfusion scan performed which demonstrated high probability for pulmonary embolism * Heparin drip discontinued. Continue Xarelto 15 mg BID x21 days then 20 mg daily. * Venous Dopplers negative for DVT * Echocardiogram reviewed with mildly enlarged right ventricle with normal function * BNP minimally elevated. Troponins mildly elevated. (3) Acute exacerbation of chronic obstructive pulmonary disease (COPD): Code(s): J44.1 - Chronic obstructive pulmonary disease with (acute) exacerbation Status: Acute Assessment and Plan: With diffuse wheezing on exam, slightly improved from prior exam yesterday * Continue Solu-Medrol q12h, transition to PO Prednisone 50 mg tomorrow * Continue Anoro Ellipta * Scheduled albuterol and ipratropium nebs q6h (4) Pneumonia: Code(s): J18.9 - Pneumonia, unspecified organism Status: Acute Assessment and Plan: Presented with shortness breath, productive cough, fever, and leukocytosis. * Continue azithromycin and Rocephin * Supportive care to include bronchodilators, expectorants, antipyretics, incentive spirometry * Supplemental O2 as needed * Legionella and pneumococcal antigens pending * COVID-19 test negative (5) Fojrx-yq-hsfjlqd kidney injury: Code(s): N17.9 - Acute kidney failure, unspecified; N18.9 - Chronic kidney disease, unspecified Status: Acute Assessment and Plan: Baseline creatinine appears to be 1.5-1.7, although somewhat fluctuant. Creatinine slightly elevated at 2.1 but is improving towards baseline at 1.8 today * Possibly ATN secondary to infection * Renal ultrasound showed moderate right and mild left renal atrophy without hydronephrosis * Renally dose medications and avoid nephrotoxins. * Hold lisinopril and HCTZ. Plan to resume soon as renal function approaches baseline. (6) Hypothyroidism determined by thyroid function test: Code(s): E03.9 - Hypothyroidism, unspecified; R94.6 - Abnormal results of thyroid function studies Status: Acute Assessment and Plan: TSH slightly low with normal T4 * Continue levothyroxine * She will need repeat TSH with reflex as an outpatient upon resolution of acute illness (7) Smoker: Code(s): F17.200 - Nicotine dependence, unspecified, uncomplicated Status: Acute Assessment and Plan: She smokes 1 pack per day. * Discussed smoking cessation at length. She would like to quit smoking but notes it will be difficult as she lives with other people who smoke. She reports that she did quit smoking for 3 weeks about 6 months ago and she felt great when doing so. * Declines need for nicotine patch at this time (8) Hyponatremia:
--- NOTE | 2021-02-10 15:57 | PM.IMPN ---
Progress Note: A&P Assessment and Plan (1) Acute respiratory failure with hypoxia: Code(s): J96.01 - Acute respiratory failure with hypoxia Status: Acute Assessment and Plan: Noted to be hypoxic down to 88%. She has required up to 2 L supplemental O2 Likely multifactorial related to PE, COPD, and pneumonia She has been weaned to room air and is maintaining adequate O2 sats Supplemental O2 as needed with goal saturation 90% or above Treatment for PE, COPD and pneumonia as described above (2) Pulmonary emboli: Code(s): I26.99 - Other pulmonary embolism without acute cor pulmonale Status: Acute Assessment and Plan: Presented with shortness of breath and fever. D-dimer noted to be elevated. Unable to obtain CTA given kidney disease therefore pulmonary perfusion scan performed which demonstrated high probability for pulmonary embolism Heparin drip discontinued. Continue Xarelto 15 mg BID x21 days then 20 mg daily. Venous Dopplers negative for DVT Echocardiogram reviewed with mildly enlarged right ventricle with normal function BNP minimally elevated. Troponins mildly elevated. (3) Acute exacerbation of chronic obstructive pulmonary disease (COPD): Code(s): J44.1 - Chronic obstructive pulmonary disease with (acute) exacerbation Status: Acute Assessment and Plan: With diffuse wheezing on exam, slightly improved from prior exam yesterday Continue Solu-Medrol q12h, transition to PO Prednisone 50 mg tomorrow Continue Anoro Ellipta Scheduled albuterol and ipratropium nebs q6h (4) Pneumonia: Code(s): J18.9 - Pneumonia, unspecified organism Status: Acute Assessment and Plan: Presented with shortness breath, productive cough, fever, and leukocytosis. Continue azithromycin and Rocephin Supportive care to include bronchodilators, expectorants, antipyretics, incentive spirometry Supplemental O2 as needed Legionella and pneumococcal antigens pending COVID-19 test negative (5) Opbrm-vr-ouniomh kidney injury: Code(s): N17.9 - Acute kidney failure, unspecified; N18.9 - Chronic kidney disease, unspecified Status: Acute Assessment and Plan: Baseline creatinine appears to be 1.5-1.7, although somewhat fluctuant. Creatinine slightly elevated at 2.1 but is improving towards baseline at 1.8 today Possibly ATN secondary to infection Renal ultrasound showed moderate right and mild left renal atrophy without hydronephrosis Renally dose medications and avoid nephrotoxins. Hold lisinopril and HCTZ. Plan to resume soon as renal function approaches baseline. (6) Hypothyroidism determined by thyroid function test: Code(s): E03.9 - Hypothyroidism, unspecified; R94.6 - Abnormal results of thyroid function studies Status: Acute Assessment and Plan: TSH slightly low with normal T4 Continue levothyroxine She will need repeat TSH with reflex as an outpatient upon resolution of acute illness (7) Smoker: Code(s): F17.200 - Nicotine dependence, unspecified, uncomplicated Status: Acute Assessment and Plan: She smokes 1 pack per day. Discussed smoking cessation at length. She would like to quit smoking but notes it will be difficult as she lives with other people who smoke. She reports that she did quit smoking for 3 weeks about 6 months ago and she felt great when doing so. Declines need for nicotine patch at this time (8) Hyponatremia: Code(s): E87.1 - Hypo-osmolality and hyponatremia Status: Acute Assessment and Plan: Sodium slightly low today at 128 Most likely hypervolemic hyponatremia. Initiate 1500 cc fluid restriction. Repeat sodium this afternoon Urine sodium and urine creatinine pending (9) Hypertension: Qualifiers: Hypertension type: essential hypertension Qualified Code(s): I10 - Essential (primary) hypertension Code(s):
[2021-02-10] MEDS: HYDROcodone/acetaminophen (*CRX) 5-325 MG TABLET 1 TAB PO (16:28)
[2021-02-10] MEDS: DULoxetine HCL 60 MG CAPSULE.DR PO (21:21)
[2021-02-10] MEDS: ATORVASTATIN 20 MG TABLET PO (21:21)
[2021-02-10] MEDS: PRAMIPEXOLE 0.125 MG TABLET PO (21:22)
[2021-02-10] MEDS: ACETAMINOPHEN 500 MG TABLET 1000 MG PO (22:04)
[2021-02-11] VITALS (17 sets, daily range): BP systolic 132–211; BP diastolic 76–111; PULSE 85–130; RESP 18–20; TEMP 36.1–36.5; O2SAT 94–96
[2021-02-11] MEDS: ALBUTEROL SULFATE NEB 2.5 MG/0.5 ML INH INHALATION ×2 (02:03→08:14)
[2021-02-11] MEDS: IPRATROPIUM BR 0.02% INH SOLN 0.5 MG/2.5 ML VIAL INHALATION ×3 (02:03→14:02)
[2021-02-11] MEDS: LEVOTHYROXINE SODIUM 125 MCG TABLET PO (06:11)
[2021-02-11 06:25] LABS: Hematocrit 31.3 % (37.0-47.0)
[2021-02-11 06:49] LABS: Anion Gap 11 mmol/L (8-16); Blood Urea Nitrogen 48 mg/dL (7-17); Calcium 8.8 mg/dL (8.4-10.2); Carbon Dioxide 27 mmol/L (22-30); Chloride 93 mmol/L (98-107); Estimated CRCL calculation 44 ml/min; Estimated Glomerular Filt Rate 36; Glucose 128 mg/dL (65-110); Sodium 131 mmol/L (137-145)
[2021-02-11] MEDS: hydrALAZINE HCL 20 MG/ML VIAL 10 MG IV PUSH (06:50)
[2021-02-11] MEDS: UMECLIDINIUM/VILANTEROL 62.5-25 MCG ELLIPTA 1 PUFF INHALATION (08:15)
[2021-02-11] MEDS: hydroCHLOROthiazide 25 MG TABLET PO (08:25)
[2021-02-11] MEDS: MONTELUKAST SODIUM 10 MG TABLET PO (08:26)
[2021-02-11] MEDS: RIVAROXABAN 15 MG TABLET PO ×2 (08:26→16:10)
[2021-02-11] MEDS: predniSONE 40 MG, predniSONE 10 MG 50 MG PO (08:26)
[2021-02-11] MEDS: lisinopriL 20 MG TABLET 40 MG PO ×2 (08:27→16:10)
[2021-02-11] MEDS: guaiFENesin 12 HR 600 MG TABCR PO (08:27)
[2021-02-11] MEDS: cloNIDine HCL 0.2 MG TABLET PO (08:27)
--- NOTE | 2021-02-11 08:34 | PC.NURSE ---
Reported elevated b/p and hr to [place] provider for pt this morning, all medication given this morning, restarted on all b/p medication. Will recheck. Currently 210/110 manually, 197/109 automatic, and HR 130 apically. Sinus tach on property assessment monitor.
--- NOTE | 2021-02-11 08:35 | ECG_ITS ---
Measurements Intervals [place] Rate: 103 P: -87 VA: 130 QRS: 8 QRSD: 101 T: 138 QT: 336 QTc: 442 Interpretive Statements ECTOPIC ATRIAL TACHYCARDIA LEFT VENTRICULAR HYPERTROPHY AND ST-T CHANGE BASELINE WANDER- I, II, V5 ABNORMAL ECG Electronically Signed On 02-11-2021 8:56:33 [employer]PER SUPERVIS[employer] by Lion Parr D.O.
[2021-02-11] MEDS: HYDROcodone/acetaminophen (*CRX) 5-325 MG TABLET 1 TAB PO (08:38)
--- NOTE | 2021-02-11 09:17 | PC.NURSE ---
Called Carol provide to inform medicatio effective at this time, current manual b/p 144/88 and apical hr 110
[2021-02-11 09:34] LABS: NT Pro B Type Natriuretic Pept 2280 pg/mL (5-100); Troponin I 0.026 ng/mL (0.000-0.034)
--- NOTE | 2021-02-11 15:28 | PM.CNCAR ---
Assessment and Plan Additional Plan This is a 55-year-old lady with: Longstanding essential hypertension requiring a multi-drug regimen for chronic treatment. She is enters the hospital with increasing shortness of breath. She has baseline COPD and now has had evidence of pulmonary embolism. He is hemodynamically stable in appropriately anticoagulated. The ectopic atrial rhythm for which I have been consulted to see her this afternoon is of no clinical consequence. I would recommend placing her back on her blood pressure regimen consisting of the metoprolol lisinopril and clonidine that she normally takes. I at this time I do not have any additional cardiac recommendations please contact me if you have any questions about this opinion Leo Fountain MD [facility] History of Present Illness History of Present Illness Consult date/time: 02/11/21 15:28 Reason For Visit: COPD Exacerbation, Hypoxia Narrative: This is a 55-year-old woman I was asked to see this afternoon by the hospitalist because of atrial arrhythmias. The patient is known to me from I believe outpatient consultation regarding her blood pressure management. She has had longstanding essential hypertension and is on multi-drug regimen for this at home. She came into the hospital because of shortness of breath worsening from her baseline. She does have some dyspnea at baseline because of chronic COPD as she is a chronic cigarette smoker. She was more significantly short of breath and came to the hospital. She was found to have a pulmonary embolism bilaterally and has been appropriately treated 1st with heparin and now with Xarelto. The patient was placed on telemetry since she has been in the hospital and was in sinus rhythm/sinus tachycardia of course consistent with her diagnosis. She had another EKG done today which demonstrates a ectopic atrial rhythm with non sinus P waves and that precipitated consulting me to see her today. The patient says she is feeling better she has been in the hospital since Sunday she is no longer requiring any oxygen supplementation and was hoping to go home. She seems to be concerned that she is not receiving some of her blood pressure medications. Reviewing the chart that does seem to be the case she is normally taking metoprolol 50 mg twice daily, in addition to this she takes clonidine and lisinopril. She had an echocardiogram done early in the hospitalization a couple of days ago which demonstrated left ventricular systolic function to be vigorous without any significant valvular disease she did have modest RV enlargement which course is not unexpected given the above history. She is not aware of any tachycardia or palpitations she otherwise feels fairly well was walking the halls with her and is hoping to be discharged. Review of Systems Constitutional: Constitutional: Reports no additional constitutional complaints Eyes: Eyes: Reports no additional eye complaints ENT: Reports system reviewed and no additional complaints, except as documented Cardiovascular: Cardiovascular: Reports no additional cardiovascular complaints Respiratory: Respiratory: Reports as per HPI and Reports dyspnea Gastrointestinal: Gastrointestinal: Reports no additional gastrointestinal complaints Musculoskeletal: Musculoskeletal: Reports no additional musculoskeletal complaints Integumentary/Breasts: Skin/Breast: Reports system reviewed and no additional complaints, except as docu Neurologic: Reports system reviewed and no additional complaints, except as documented Endocrine: Endocrine: Reports no additional endocrine complaints Hematologic/Lymphatic: Hematologic/Lymphatic: Reports no additional hematologic/lymphatic complaints Allergic/Immunologic: Allergic/Immunologic: Reports no additional allergic/immunologic complaints [facility] Past Medical History Medical History (Updated 02/09/21 @ 16:20 by Carol Chaves PA-C) Chronic, continuous use of op
--- NOTE | 2021-02-11 15:57 | PM.DS ---
DS: Admitting Diagnosis Discharge Date 02/11/2021 Admitting Diagnosis Pulmonary embolism DS: Discharge Diagnosis Discharge Diagnosis (1) Acute respiratory failure with hypoxia: Code(s): J96.01 - Acute respiratory failure with hypoxia Status: Acute Assessment and Plan: Noted to be hypoxic down to 88% on presentation. She required up to 2 L supplemental O2. Likely multifactorial related to PE, COPD, and pneumonia. She was weaned to room air and maintained adequate O2 sats with no further episodes of desaturation. Treatment for PE, COPD and pneumonia as described above (2) Pulmonary emboli: Code(s): I26.99 - Other pulmonary embolism without acute cor pulmonale Status: Acute Assessment and Plan: Presented with shortness of breath and fever. D-dimer noted to be elevated. Unable to obtain CTA given kidney disease therefore pulmonary perfusion scan performed which demonstrated high probability for pulmonary embolism. Venous Dopplers negative for DVT. Echocardiogram reviewed which showed mildly enlarged right ventricle with normal function. BNP minimally elevated. Troponins mildly elevated. She was started on a heparin drip and was transitioned to Xarelto. She will continue Xarelto 15 mg BID x21 days then 20 mg daily thereafter. Discussed risks vs benefits of anticoagulation, patient verbalized understanding. (3) Acute exacerbation of chronic obstructive pulmonary disease (COPD): Code(s): J44.1 - Chronic obstructive pulmonary disease with (acute) exacerbation Status: Acute Assessment and Plan: Presented with diffuse wheezing on exam, consistent with exacerbation. She was started on IV Solu-Medrol which was weaned as her wheezing improved and was eventually transitioned to p.o. prednisone. She will continue prednisone 50 mg x 5 days. Continue Anoro Ellipta and albuterol as needed. (4) Pneumonia: Code(s): J18.9 - Pneumonia, unspecified organism Status: Acute Assessment and Plan: Presented with shortness of breath, productive cough, fever, and leukocytosis. She was treated with IV azithromycin and Rocephin. Supportive care provided including bronchodilators, expectorants, antipyretics, and incentive spirometry. COVID-19 negative. Urinary Legionella pneumococcal antigens pending. She completed 5 days of azithromycin and will continue p.o. cefdinir to complete 7 days. (5) Iipcz-ox-dachmvb kidney injury: Code(s): N17.9 - Acute kidney failure, unspecified; N18.9 - Chronic kidney disease, unspecified Status: Acute Assessment and Plan: Baseline creatinine appears to be 1.5-1.7, although somewhat fluctuant. Creatinine slightly elevated at 2.1 on admission but slowly improved back to baseline. Possibly ATN related to infection. Renal ultrasound showed moderate right and mild left renal atrophy without hydronephrosis. Lisinopril and HCTZ initially held but were resumed as renal function approached baseline. (6) Hypothyroidism determined by thyroid function test: Code(s): E03.9 - Hypothyroidism, unspecified; R94.6 - Abnormal results of thyroid function studies Status: Acute Assessment and Plan: TSH slightly low with normal T4. Continue levothyroxine. She will need repeat TSH with reflex as an outpatient upon resolution of acute illness (7) Smoker: Code(s): F17.200 - Nicotine dependence, unspecified, uncomplicated Status: Acute Assessment and Plan: She smokes 1 pack per day. Discussed smoking cessation at length. She would like to quit smoking but notes it will be difficult as she lives with other people who smoke. She reports that she did quit smoking for 3 weeks about 6 months ago and she felt great when doing so. Smoking cessation education reinforced prior to discharge. Declined nicotine patch (8) Hyponatremia: Code(s): E87.1 - Hypo-osmolality and hyponatremia Status: Acute
[2021-02-11] MEDS: AZITHROMYCIN 250 MG TABLET 500 MG PO (16:10)
[2021-02-13 09:43] LABS: Legionella pneumophila Ag Ur Not Detected (Not Detected)
[2021-02-13 10:39] LABS: Pneumococcal Antigen Urine Not Detected (Not Detected)
== END 2021-02-11 17:25 | disposition home or self-care (01) | DRG 175 ==
LOC: ANHED 20:51 → ANHIMU 02-08 03:02 → ANH3MEDSUR 02-09 20:17 → ANHICU 02-14 15:06 → ANHIMU 02-14 15:06
PROVIDERS: Emergency Medicine; Nurse Practitioner; Admitting Provider Internal Medicine; Emergency Provider Emergency Medicine; PCP Family Medicine; Visit Provider Physician Assistant
DX: I26.99 Other pulmonary embolism without acute cor pulmonale (principal); J18.9 Pneumonia, unspecified organism; N17.0 Acute kidney failure with tubular necrosis; J96.01 Acute respiratory failure with hypoxia; J44.1 Chronic obstructive pulmonary disease with (acute) exacerbation; E87.1 Hypo-osmolality and hyponatremia; I47.1 Supraventricular tachycardia; I50.32 Chronic diastolic (congestive) heart failure; I13.0 Hypertensive heart and chronic kidney disease with heart failure and stage 1 through stage 4 chronic kidney disease, or unspecified chronic kidney disease; J44.0 Chronic obstructive pulmonary disease with (acute) lower respiratory infection; N18.30 Chronic kidney disease, stage 3 unspecified; Z23 Encounter for immunization; Z20.822 Contact with and (suspected) exposure to COVID-19; E03.9 Hypothyroidism, unspecified; K21.9 Gastro-esophageal reflux disease without esophagitis; I25.10 Atherosclerotic heart disease of native coronary artery without angina pectoris; E78.5 Hyperlipidemia, unspecified; F17.210 Nicotine dependence, cigarettes, uncomplicated; G25.81 Restless legs syndrome; I34.0 Nonrheumatic mitral (valve) insufficiency; M79.7 Fibromyalgia; Z96.641 Presence of right artificial hip joint; E83.42 Hypomagnesemia; E66.9 Obesity, unspecified; Z68.32 Body mass index [BMI] 32.0-32.9, adult
CPT/HCPCS: 36415; 71045; 71046; 76775; 78580; 80048; 80053; 82570; 82728; 83036; 83605; 83615; 83735; 83880; 84295; 84300; 84439; 84443; 84480; 84484; 85014; 85018; 85025; 85027; 85380; 85610; 85730; 86140; 87449; 87899; 90471; 90653; 93005; 93306; 93970; 94640; 96374; 99285; A9270; A9540; C9803; G0008; J0360; J0456; J0696; J1644; J2930; J3475; J7512; U0003; U0005

== ENCOUNTER 2021-09-29 10:04 | Outpatient (CLI) | payer MEDICARE, MEDICAID, SELFPAY ==
--- NOTE | ~2021-09-29 | XR_ITS ---
XR sacroiliac joints min 3V DATE: 09/29/2021 10:36 INDICATION: Sacrococcygeal disorder is TECHNIQUE: AP and bilateral oblique views COMPARISON: None FINDINGS: Status post right total hip arthroplasty. Mild osteoarthritis at the left joint. The pubic symphysis and sacroiliac joints are intact. No fracture or dislocation, erosive change or a nkylosis at the sacroiliac joints. There is mild degenerative change at the sacroiliac joints. IMPRESSION: Mild degenerative change at the sacroiliac joints and left hip joint Right hip replacement Reviewed, dictated and finalized at [facility]. Reviewed, dictated and finalized at location [facility]. IMPRESSION: Mild degenerative change at the sacroiliac joints and left hip join t Right hip replacement
[2021-09-29 10:24] LABS: Hematocrit 33.2 % (37.0-47.0); Hemoglobin 10.7 g/dL (12.0-15.0); Mean Corpuscular HGB Conc 32.2 g/dl (32-36); Mean Corpuscular Volume 99.4 fl (80-100); Mean Platelet Volume 9.6 fl (7.4-10.4); Platelet Count Result 321 k/mm3 (150-375); Red Blood Count 3.34 M/mm3 (4.2-5.4); Red Cell Distribution Width 13.7 % (11.5-14.5); White Blood Count 9.6 K/mm3 (4.5-10.0)
[2021-09-29 10:38] LABS: Alanine Aminotransferase 11 U/L (6-35); Albumin Level 4.4 g/dL (3.5-5.1); Alkaline Phosphatase 61 U/L (38-126); Anion Gap 8 mmol/L (8-16); Aspartate Amino Transferase 17 U/L (14-36); Bilirubin,Total 0.2 mg/dL (0.2-1.3); Blood Urea Nitrogen 39 mg/dL (7-17); Calcium 8.6 mg/dL (8.4-10.2); Carbon Dioxide 28 mmol/L (22-30); Chloride 103 mmol/L (98-107); Cholesterol 216 mg/dL (0-200); Estimated Glomerular Filt Rate 20; Glucose 93 mg/dL (65-110); HDL Direct 41 mg/dL; Potassium 4.1 mmol/L (3.4-5.0); Sodium 139 mmol/L (137-145); Triglycerides 202 mg/dL (<150)
[2021-09-29 10:50] LABS: LDL Cholesterol Direct 111 mg/dL
[2021-09-29 11:06] LABS: Erythrocyte Sedimentation Rate 58 mm/hr (0-20)
[2021-09-29 11:37] LABS: Hemoglobin A1C 5.5 % (<5.7)
[2021-09-29 12:37] LABS: Thyroid Stimulating Hormone Reflex 0.203 uIU/mL (0.465-4.68)
[2021-09-29 13:50] LABS: Free T4 Free Thyroxine Reflex 1.83 ng/dL (0.78-2.19)
[2021-09-29 14:37] LABS: Total Triiodothyronine (T3) 1.05 NG/ML (0.97-1.69)
== END 2021-09-29 10:05 | disposition home or self-care (01) ==
PROVIDERS: PCP Family Medicine; Visit Provider Family Medicine
DX: M53.3 Sacrococcygeal disorders, not elsewhere classified (principal); M54.16 Radiculopathy, lumbar region; R53.83 Other fatigue; I10 Essential (primary) hypertension; R73.9 Hyperglycemia, unspecified; E78.2 Mixed hyperlipidemia; E03.9 Hypothyroidism, unspecified
CPT/HCPCS: 36415; 72202; 80053; 80061; 83036; 84439; 84443; 84480; 85027; 85652

== ENCOUNTER 2021-10-17 11:10 | Outpatient (CLI) | payer MEDICARE, MEDICAID, SELFPAY ==
[2021-10-17 11:38] LABS: Appearance Urine Clear (Clear); Bilirubin Urine Negative (Negative); Color Urine Light Yellow (Yellow); Glucose Urine UA Negative (Negative); Ketones Urine Negative (Negative); Leukocyte Esterase Ur Trace (Negative); Nitrate Urine Negative (Negative); Protein Urine Negative (Negative); Urobilinogen Urine 0.2 mg/dL (0.2-1.0)
[2021-10-17 11:47] LABS: Add Urine Microscopic? YES; Blood Urine Trace-Intact (Negative); RBC Urine None seen /hpf (0-2)
[2021-10-17 11:48] LABS: Bacteria Urine Trace /hpf; Squamous Epithelial Cell Urine Moderate /hpf (Few); WBC Urine 0-3 /hpf (0-3)
[2021-10-17 12:09] LABS: Ferritin 120 ng/mL (8-252); Iron 85 ug/dL (50-170); Percent Iron Saturation 27 % (12-57)
== END 2021-10-17 11:11 | disposition home or self-care (01) ==
LOC: CHSLAB 11:13
PROVIDERS: PCP Family Medicine; Visit Provider Family Medicine
DX: D64.9 Anemia, unspecified (principal); N18.9 Chronic kidney disease, unspecified
CPT/HCPCS: 36415; 81001; 82728; 83540; 83550

== ENCOUNTER 2021-12-12 10:53 | Outpatient (CLI) | payer MEDICARE, MEDICAID, SELFPAY ==
--- NOTE | ~2021-12-12 | XR_ITS ---
EXAMINATION: XR chest 2V DATE: 12/12/2021 11:14 INDICATION: Shortness of breath and 2 weeks of cough TECHNIQUE: PA and lateral views of the chest were obtained. COMPARISON: Chest radiograph dated 02/11/2021 FINDINGS: The lungs remain clear with no focal airspace opacities, pulmonary edema, pleural effusion or pneumot horax. The cardiomediastinal silhouette is normal. Mild thoracic spondylosis. IMPRESSION: 1. No acute cardiopulmonary disease. Reviewed, dictated and finalized at location [facility].
== END 2021-12-12 10:54 | disposition home or self-care (01) ==
LOC: CHSIMG 10:55
PROVIDERS: PCP Family Medicine; Visit Provider Physician Assistant
DX: R05.9 Cough, unspecified (principal)
CPT/HCPCS: 71046

== ENCOUNTER 2022-03-21 11:18 | Outpatient (CLI) | payer MEDICARE, MEDICAID, SELFPAY ==
[2022-03-21 12:25] LABS: Basophils Absolute Auto 0.1 K/mm3 (0.0-0.1); Basophils Percent Auto 1.5 % (0.2-1.2); Eosinophils Absolute Auto 0.4 K/mm3 (0-0.3); Eosinophils Percent Auto 4.3 % (0-4.4); Hematocrit 35.9 % (37.0-47.0); Hemoglobin 11.8 g/dL (12.0-15.0); Immature Granulocyte Absolute 0.04 K/mm3 (0.00-0.031); Immature Granulocyte Percent A 0.4 % (0-0.5); Lymphocytes Absolute Auto 1.46 K/mm3 (0.9-3.2); Lymphocytes Percent Auto 15.4 % (18.3-44.2); Mean Corpuscular HGB Conc 32.9 g/dl (32-36); Mean Corpuscular Hemoglobin 31.4 pg (26-34); Mean Corpuscular Volume 95.5 fl (80-100); Monocytes Absolute Auto 0.4 K/mm3 (0.1-0.6); Monocytes Percent Auto 4.3 % (2.6-8.5); Neutrophils Percent Auto 74.1 % (45.5-73.1); Platelet Count Result 400 k/mm3 (150-375); Red Blood Count 3.76 M/mm3 (4.2-5.4); Red Cell Distribution Width 13.2 % (11.5-14.5); White Blood Count 9.5 K/mm3 (4.5-10.0)
[2022-03-21 12:39] LABS: Alanine Aminotransferase 15 U/L (6-35); Albumin Level 4.5 g/dL (3.5-5.1); Alkaline Phosphatase 63 U/L (38-126); Anion Gap 6 mmol/L (8-16); Aspartate Amino Transferase 21 U/L (14-36); Bilirubin,Total 0.3 mg/dL (0.2-1.3); Blood Urea Nitrogen 21 mg/dL (7-17); Carbon Dioxide 29 mmol/L (22-30); Chloride 100 mmol/L (98-107); Cholesterol 175 mg/dL (0-200); Estimated Glomerular Filt Rate 36; Glucose 99 mg/dL (65-110); HDL Direct 42 mg/dL; Potassium 3.9 mmol/L (3.4-5.0); Sodium 135 mmol/L (137-145); Triglycerides 158 mg/dL (<150)
[2022-03-21 12:50] LABS: LDL Cholesterol Direct 87 mg/dL
[2022-03-21 13:26] LABS: Vitamin D 25 Hydroxy 76.2 ng/mL
[2022-03-21 13:54] LABS: Hemoglobin A1C 5.6 % (<5.7)
== END 2022-03-21 11:19 | disposition home or self-care (01) ==
LOC: ANHLAB 11:20
PROVIDERS: PCP Family Medicine; Visit Provider Family Medicine
DX: R53.83 Other fatigue (principal); E78.5 Hyperlipidemia, unspecified; N18.9 Chronic kidney disease, unspecified; I12.9 Hypertensive chronic kidney disease with stage 1 through stage 4 chronic kidney disease, or unspecified chronic kidney disease; R73.01 Impaired fasting glucose; E03.9 Hypothyroidism, unspecified; E55.9 Vitamin D deficiency, unspecified
CPT/HCPCS: 36415; 80053; 80061; 82306; 83036; 84443; 85025

== ENCOUNTER 2022-04-27 09:39 | Outpatient (CLI) | payer MEDICARE, MEDICAID, SELFPAY ==
--- NOTE | ~2022-04-27 | XR_ITS ---
Clinical Indication: Lower respiratory infection PA and lateral views of the chest: Comparison: 12/12/2021 Findings: The lungs are clear, without evidence of focal consolidation or pleural effusion. Cardiome diastinal silhouette is within normal limits. Bones and soft tissues are unremarkable. Impression: Normal chest. Reviewed, dictated and finalized at [facility]. KKEEPER Impression: Normal chest.
== END 2022-04-27 09:40 | disposition home or self-care (01) ==
PROVIDERS: PCP Family Medicine; Visit Provider Physician Assistant Medical
DX: J22 Unspecified acute lower respiratory infection (principal)
CPT/HCPCS: 71046

== ENCOUNTER 2022-06-01 13:18 | Outpatient (CLI) | payer MEDICARE, MEDICAID, SELFPAY ==
--- NOTE | ~2022-06-01 | CT_ITS ---
EXAMINATION: CT chest abdomen wo con DATE: 06/01/2022 13:32 INDICATION: Chronic cough TECHNIQUE: Computed tomography (CT) of the chest and abdomen was performed without intravenous contra st. The dose-length product (DLP) was 615.07 mGy-cm. Automated exposure control and iterative reconst ruction technique were employed. COMPARISON: 06/08/2019 FINDINGS: CHEST: The lungs are free of acute opacities. No pleural effusion or pneumothorax. No pathologically enlarged thoracic lymph nodes are identified. The heart size is normal. Calcified coronary artery ath erosclerosis is noted. Subendocardial fat deposition in the interventricular septum of the heart is c onsistent with prior myocardial infarction. ABDOMEN: Punctate calcifications in an otherwise normal spleen likely represent healed granulomatous disease. The liver, pancreas, gallbladder, and adrenal glands are normal. There is moderate atrophy o f the right kidney. Cysts of the left kidney measure up to 1.9 cm. There is calcified atherosclerosis of the aorta and many of the other arteries. There are no pathologically enlarged abdominal lymph no neli. No free intraperitoneal gas. Small bowel loops in the midabdomen are mildly dilated. IMPRESSION: 1. No acute cardiopulmonary abnormality. 2. Some mildly dilated small bowel loops in the midabdomen, likely ileus. Correlate for abdominal salvador n. 3. Moderate atrophy of the right kidney. Reviewed, dictated and finalized at location [facility]. IC MESSAGE SERVICE SUPERVISOR IMPRESSION: 1. No acute cardiopulmonary abnormality. 2. Some mildly dilated small bowel loops in the midabdomen, likely ileus. Corre late for abdominal pain. 3. Moderate atrophy of the right kidney.
== END 2022-06-01 13:19 | disposition home or self-care (01) ==
PROVIDERS: PCP Family Medicine; Visit Provider Physician Assistant Medical
DX: R05.3 Chronic cough (principal); N26.1 Atrophy of kidney (terminal)
CPT/HCPCS: 71250; 74150

== ENCOUNTER 2022-10-13 11:47 | Outpatient (CLI) | payer MEDICARE, MEDICAID, SELFPAY ==
[2022-10-13 12:15] LABS: Appearance Urine Clear (Clear); Bilirubin Urine Negative (Negative); Blood Urine Negative (Negative); Color Urine Light Yellow (Yellow); Glucose Urine UA Negative (Negative); Ketones Urine Negative (Negative); Leukocyte Esterase Ur Negative LEU/UL (Negative); Nitrate Urine Negative (Negative); Protein Urine Negative (Negative); Urobilinogen Urine 0.2 mg/dL (0.2-1.0)
[2022-10-13 12:32] LABS: Add Urine Microscopic? NO
== END 2022-10-13 11:48 | disposition home or self-care (01) ==
LOC: CHSLAB 11:49
PROVIDERS: PCP Family Medicine; Visit Provider Family Medicine
DX: R30.0 Dysuria (principal)
CPT/HCPCS: 81003

== ENCOUNTER 2023-03-30 11:31 | Emergency (ER) | payer MEDICARE, MEDICAID, SELFPAY ==
[2023-03-30 11:42] VITALS: BP 158/94; PULSE 75; RESP 16; TEMP 37.2; O2SAT 97
--- NOTE | 2023-03-30 12:02 | ED.URI ---
HPI - URI/Sore Throat General Chief Complaint: Upper Respiratory Infection Stated Complaint: Cough Time Seen by Provider: 03/30/23 12:03 Source: patient, RN notes reviewed and old records reviewed Mode of arrival: ambulatory Limitations: no limitations History of Present Illness HPI Narrative: [address] [facility] with complaints of cough and sinus pain that started on the 02 of March. Had seen their primary on the 12 of March. Patient was prescribed prednisone and albuterol. States over the last week she is actually gotten worse. Has a history of COPD. Any chest pain. Last time she used her albuterol was last night. Related Data Home Medications Medication Instructions Recorded Confirmed clonidine HCl 0.1 mg tablet 0.2 mg PO BID 01/20/20 03/30/23 hydrochlorothiazide 25 mg tablet 25 mg PO DAILY 01/20/20 03/30/23 lisinopril 40 mg tablet 40 mg PO BID 09/13/20 03/30/23 Allergies Allergy/AdvReac Type Severity Reaction Status Date / Time levofloxacin Allergy Unknown HIVES Verified 03/30/23 11:53 Penicillins Allergy Unknown Unknown Verified 03/30/23 11:53 Review of Systems Review of Systems: All systems reviewed & are unremarkable except as noted in HPI and below Constitutional: Constitutional: Reports no additional constitutional complaints Eyes: Eyes: Reports no additional eye complaints ENT: Reports as per HPI, Reports sinus pain and Reports sinus pressure Cardiovascular: Cardiovascular: Reports no additional cardiovascular complaints, Denies chest pain and Denies dyspnea Respiratory: Respiratory: Reports as per HPI, Denies chest congestion, Reports cough and Reports dyspnea Gastrointestinal: Gastrointestinal: Reports no additional gastrointestinal complaints, Denies abdominal pain, Denies nausea and Denies vomiting Musculoskeletal: Musculoskeletal: Reports no additional musculoskeletal complaints Integumentary/Breasts: Skin/Breast: Reports system reviewed and no additional complaints, except as docu Neurologic: Reports system reviewed and no additional complaints, except as documented Psychiatric: Psychiatric: Reports no additional psychiatric complaints Allergic/Immunologic: Allergic/Immunologic: Reports no additional allergic/immunologic complaints [facility] Past Medical History Medical History Acute lower respiratory infection Acute sinusitis Chronic, continuous use of opioids COPD (chronic obstructive pulmonary disease) Diastolic heart failure DVT prophylaxis Fibromyalgia GERD with esophagitis Hyperlipidemia Hypothyroidism determined by thyroid function test Mild mitral regurgitation Pneumonia Recurrent boils Restless leg syndrome Sepsis Smoker SVT (supraventricular tachycardia) Surgical History Surgical History H/O tubal ligation History of tonsillectomy Status post total hip replacement, right 2016 Family History Family History Father Family history of cardiovascular disease Diabetes mellitus Family history of diabetes mellitus in first degree relative Hypertension Mother Diabetes mellitus Family history of diabetes mellitus in first degree relative Family history of thyroid disease Hypertension Social History Social History Social History: Patient smokes a pack a day for past 43 years. No alcohol or drug use. Lives on with her . She nominated her to be the individual making medical decisions for her if she is not able. 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 Code status full code Smoking packs per day: 1 Smoking cigarettes per day: 20.0 Years smoked: 44 Smoking pack-years: 44.00 Smoking status: Current every day smoker Tobacco type: cigarettes Second hand tobacco smoke exposure: Yes Additional sm
== END 2023-03-30 12:15 | disposition home or self-care (01) ==
PROVIDERS: Emergency Provider Nurse Practitioner; PCP Family Medicine
DX: J44.0 Chronic obstructive pulmonary disease with (acute) lower respiratory infection (principal); J20.9 Acute bronchitis, unspecified; F17.210 Nicotine dependence, cigarettes, uncomplicated; M79.7 Fibromyalgia; K21.00 Gastro-esophageal reflux disease with esophagitis, without bleeding; E78.5 Hyperlipidemia, unspecified; E03.9 Hypothyroidism, unspecified; I34.0 Nonrheumatic mitral (valve) insufficiency; G25.81 Restless legs syndrome; Z96.641 Presence of right artificial hip joint; I50.30 Unspecified diastolic (congestive) heart failure
CPT/HCPCS: 99213; G0463

== ENCOUNTER 2023-09-06 11:51 | Outpatient (CLI) | payer MEDICARE, SELFPAY ==
[2023-09-06 12:38] LABS: Basophils Absolute Auto 0.1 K/mm3 (0.0-0.1); Basophils Percent Auto 1.3 % (0.2-1.2); Eosinophils Absolute Auto 0.4 K/mm3 (0-0.3); Eosinophils Percent Auto 4.1 % (0-4.4); Hematocrit 39.7 % (37.0-47.0); Hemoglobin 12.9 g/dL (12.0-15.0); Immature Granulocyte Absolute 0.02 K/mm3 (0.00-0.031); Immature Granulocyte Percent A 0.2 % (0-0.5); Lymphocytes Absolute Auto 2.41 K/mm3 (0.9-3.2); Lymphocytes Percent Auto 28.5 % (18.3-44.2); Mean Corpuscular HGB Conc 32.5 g/dl (32-36); Mean Corpuscular Hemoglobin 31.4 pg (26-34); Mean Corpuscular Volume 96.6 fl (80-100); Mean Platelet Volume 10.2 fl (7.4-10.4); Monocytes Absolute Auto 0.7 K/mm3 (0.1-0.6); Monocytes Percent Auto 8.5 % (2.6-8.5); Neutrophils Absolute Auto 4.8 K/mm3 (1.3-6.7); Neutrophils Percent Auto 57.4 % (45.5-73.1); Platelet Count Result 353 k/mm3 (150-375); Red Blood Count 4.11 M/mm3 (4.2-5.4); Red Cell Distribution Width 12.6 % (11.5-14.5); White Blood Count 8.5 K/mm3 (4.5-10.0)
[2023-09-06 12:44] LABS: Appearance Urine Clear (Clear); Bacteria Urine None Seen /hpf; Bilirubin Urine Negative (Negative); Blood Urine Negative (Negative); Color Urine Yellow (Yellow); Glucose Urine UA Negative (Negative); Ketones Urine Negative (Negative); Leukocyte Esterase Ur Trace LEU/UL (Negative); Nitrate Urine Negative (Negative); Non Pathogenic Casts 0-2; Protein Urine Negative (Negative); RBC Urine 0-2 /hpf (0-2); Squamous Epithelial Cell Urine Few /hpf (Few); Urobilinogen Urine 0.2 mg/dL (<2.0); WBC Urine 0-5 /hpf (0-3); pH Urine 6.5 (5.0-9.0)
[2023-09-06 12:54] LABS: Alanine Aminotransferase 13 U/L (6-35); Albumin Level 4.5 g/dL (3.5-5.1); Alkaline Phosphatase 62 U/L (38-126); Anion Gap 6 mmol/L (4-12); Aspartate Amino Transferase 22 U/L (14-36); Bilirubin,Total 0.9 mg/dL (0.2-1.3); Blood Urea Nitrogen 22 mg/dL (7-17); Calcium 9.4 mg/dL (8.4-10.2); Carbon Dioxide 30 mmol/L (22-30); Chloride 101 mmol/L (98-107); Cholesterol 191 mg/dL (0-200); Estimated Glomerular Filt Rate 35; Glucose 98 mg/dL (65-110); HDL Direct 45 mg/dL; Potassium 3.9 mmol/L (3.4-5.0); Sodium 137 mmol/L (137-145); Triglycerides 173 mg/dL (<150)
[2023-09-06 13:05] LABS: LDL Cholesterol Direct 110 mg/dL
[2023-09-06 13:32] LABS: Add Urine Microscopic? YES
[2023-09-06 13:40] LABS: Parathyroid Intact 99.4 pg/mL (7.5-53.5)
[2023-09-06 13:43] LABS: Hemoglobin A1C 5.7 % (<5.7)
[2023-09-06 13:54] LABS: Vitamin D 25 Hydroxy 49.3 ng/mL
[2023-09-06 14:08] LABS: Thyroid Stimulating Hormone Reflex 0.068 uIU/mL (0.465-4.68)
[2023-09-06 21:58] LABS: Total Triiodothyronine (T3) 1.09 NG/ML (0.97-1.69)
== END 2023-09-06 11:52 | disposition home or self-care (01) ==
LOC: ANHLAB 11:54
PROVIDERS: PCP Family Medicine; Visit Provider Family Medicine
DX: N18.4 Chronic kidney disease, stage 4 (severe) (principal); R73.03 Prediabetes; E03.9 Hypothyroidism, unspecified; E55.9 Vitamin D deficiency, unspecified; E21.3 Hyperparathyroidism, unspecified; E78.2 Mixed hyperlipidemia; R53.83 Other fatigue
CPT/HCPCS: 36415; 80053; 80061; 81001; 82306; 83036; 83970; 84439; 84443; 84480; 85025

== ENCOUNTER 2024-02-21 09:02 | Outpatient (CLI) | payer MEDICARE, SELFPAY ==
--- NOTE | ~2024-02-21 | US_ITS ---
EXAM: RENAL ULTRASOUND HISTORY: N18.32 - Chronic kidney disease, stage 3b COMPARISON: Reference is made to a CT examination of the chest dated 06/01/2022 FINDINGS: RIGHT KIDNEY 6.6 x 3.1 x 2.2 cm. The right kidney is atrophic, in comparison to the left -unchanged dating back to 06/01/2022. The parenchyma of the right kidney is increased in echogenicity. No hydronephrosis or bulky renal calculi. LEFT KIDNEY: 10.8 x 5.5 x 4.5 cm No hydronephrosis or renal calculi. The parenchyma of the left kidney is increased in echogenicity. A single rounded avascular anechoic focus is present within the upper pole of the left kidney measuri ng 31 mm in greatest dimension, consistent with a simple cyst for which no further follow-up is neede d. BLADDER: The bladder is distended, and otherwise unremarkable. Bilateral ureteral jets are noted IMPRESSION: Right renal atrophy (unchanged). Simple cyst within the left kidney for which no further follow-up is needed. Findings suggesting medical renal disease. Reviewed, dictated and finalized at location A. NSION FORESTER
[2024-02-21 09:35] LABS: Albumin Level 4.6 g/dL (3.5-5.1); Anion Gap 5 mmol/L (4-12); Blood Urea Nitrogen 18 mg/dL (7-17); Calcium 9.3 mg/dL (8.4-10.2); Carbon Dioxide 32 mmol/L (22-30); Chloride 100 mmol/L (98-107); Estimated Glomerular Filt Rate 42; Glucose 90 mg/dL (65-110); Phosphorus 3.6 mg/dL (2.5-4.5); Sodium 137 mmol/L (137-145)
[2024-02-21 15:10] LABS: Creatinine Urine 29.3 mg/dL; Total Protein Urine Random 14 mg/dL; Ur Ttl Prot Creatinine Ratio 0.48 mg/mg (0-0.20)
== END 2024-02-21 09:03 | disposition home or self-care (01) ==
PROVIDERS: PCP Family Medicine; Visit Provider Internal Medicine Nephrology
DX: I12.9 Hypertensive chronic kidney disease with stage 1 through stage 4 chronic kidney disease, or unspecified chronic kidney disease (principal); N18.32 Chronic kidney disease, stage 3b; N28.1 Cyst of kidney, acquired
CPT/HCPCS: 36415; 76775; 80069; 82570; 84156

== ENCOUNTER 2024-07-15 12:48 | Outpatient (CLI) | payer MEDICARE, SELFPAY ==
[2024-07-15 13:26] LABS: Hemoglobin A1C 5.7 % (<5.7)
[2024-07-15 13:30] LABS: Alanine Aminotransferase 17 U/L (6-35); Albumin Level 4.4 g/dL (3.5-5.1); Alkaline Phosphatase 63 U/L (38-126); Anion Gap 10 mmol/L (4-12); Aspartate Amino Transferase 21 U/L (14-36); Bilirubin,Total 0.3 mg/dL (0.2-1.3); Blood Urea Nitrogen 27 mg/dL (7-17); Calcium 9.1 mg/dL (8.4-10.2); Carbon Dioxide 31 mmol/L (22-30); Chloride 100 mmol/L (98-107); Cholesterol 185 mg/dL (0-200); Estimated Glomerular Filt Rate 25; Glucose 90 mg/dL (65-110); HDL Direct 50 mg/dL; Phosphorus 5.3 mg/dL (2.5-4.5); Potassium 3.7 mmol/L (3.4-5.0); Sodium 141 mmol/L (137-145); Triglycerides 280 mg/dL (<150)
[2024-07-15 13:40] LABS: LDL Cholesterol Direct 89 mg/dL
--- OUTSIDE RECORDS SUMMARY | 2024-07-15 13:40 | XMS_ITS | Referral Summary ---
Author Organization [facility] [address] Address [address] [place] [address] Care Team Providers Care Paint Booth Operator Name Role Phone Jennifer Peraza MD Primary Care Provider [phone] Allergies Active Allergy Reactions Criticality Noted Date Comments Levofloxacin Unknown 07/25/2016 Penicillins Nausea Only 07/25/2016 Prednazoline Unknown 07/25/2016 Prednisone Anxiety Low 06/21/2023 Medications HYDROcodone-ac etaminophen (NORCO) 7.5-325 mg per tabletIndicati ons:Pain 1 tablet as needed 0 01/08/20 18 Active pramipexole (MIRAPEX) 0.125 mg tablet Take 1 tablet (0.125 mg total) by mouth daily Active atorvastatin (LIPITOR) 20 mg tablet Take 1 tablet (20 mg total) by mouth daily 94 01/03/20 18 Active levothyroxine (SYNTHROID, LEVOTHROID) 150 mcg tablet Take 137 mcg by mouth daily 4 12/14/19 18 Active azelastine (ASTELIN) 137 mcg (0.1 %) nasal spray 05/06/19 20 Active Anoro Ellipta 62.5-25 mcg/actuation blister with device 1 puff daily 05/01/19 20 Active montelukast (SINGULAIR) 10 mg tablet Take 1 tablet (10 mg total) by mouth nightly Active Eliquis 5 mg tablet 2 (two) times a day 07/26/[address] (CYMBALTA) 60 mg capsule daily 03/03/20 14 Active albuterol HFA (ProAir HFA) 90 mcg/actuation inhalerIndicat ions:Bronchiti s Inhale 2 puffs every 4 (four) hours as needed for wheezing or shortness of breath 8.5 g 08/28/19 Active colchicine (COLCRYS) 0.6 mg tablet 03/20/20 22 Active cloNIDine (CATAPRES-TTS) 0.2 mg/24 hrIndications: hypertension Place 1 patch on the skin once a week 30 patch 5 06/21/19 24 Active hydroCHLOROthi azide (HYDRODIURIL) 25 mg tablet TAKE ONE TABLET BY MOUTH DAILY 90 tablet 3 01/04/20 24 Active lisinopriL (PRINIVIL,ZEST RIL) 40 mg tablet TAKE ONE TABLET BY MOUTH TWICE A DAY 180 tablet 1 04/04/19 25 Active metoprolol (LOPRESSOR) 100 mg tablet TAKE ONE TABLET BY MOUTH TWICE A DAY 180 tablet 06/20/19 25 Active metoprolol (LOPRESSOR) 100 mg tablet TAKE ONE TABLET BY MOUTH TWICE A DAY 180 tablet 03/25/20 24 025 Discontinued Active Problems Problem Noted Date Diagnosed Date Nonrheumatic mitral valve regurgitation 12/20/19 24 Hypothyroidism 08/27/2021 Major depressive disorder in remission Mixed hyperlipidemia 08/27/2021 Iron deficiency anemia 08/27/2021 Hypothyroidism 08/27/2021 Chronic obstructive pulmonar y disease with acute lower respiratory infection 08/27/2021 Mixed hyperlipidemia 04/04/2018 Fibromyalgia 03/06/2018 Idiopathic osteoarthritis 03/06/2018 Essential hypertension 01/24/2018 Diastolic dysfunction 01/24/2018 Social History Tobacco Use Types Packs/Day Years Used Date Smoking Tobacco: Every Day Smokeless Tobacco: Never Tobacco Cessation:Ready to Q uit: Not Asked; Counseling Given: Not Answered Alcohol Use Standard Drinks/Week Comments No 0 (1 standard drink = 0.6 oz pur e alcohol) Personal Safety Answer Date Recorded Getting School Help Needed Not on file 04/13 Comments Unknown Sex and Gender Information Value Date Recorded Sex Assigned at Not on file Legal Sex Female 8:32 AM CDT Gender Identity Not on file Sexual Orientation Not on file Last Filed Vital Signs Vital Sign Reading Time Taken Comments Blood Pressure 182/90 12/20/2023 9:38 AM CDT Pulse 74 12/20/2023 9:38 AM CDT Temperature 37.2 C (99 F) 12/16/2021 9:02 AM CDT Respiratory Rate 16 12/16/2021 9:02 AM CDT Oxygen Saturation 96% 12/20/2023 9:38 AM CDT Inhaled Oxygen Concentration - - Weight 88.7 kg (195 lb 8 oz) 12/20/2023 9:38 AM CDT Height 170.2 cm (5' 7 ) 12/20/2023 9:38 AM CDT Body Mass Index 30.62 12/20/2023 9:38 AM CDT Plan of Treatment Not on file Insurance MEDICARE MEDICARE Care Teams Paint Booth Operator Relationship Specialty Start Date End Date Jennifer Peraza MD PCP - General Family Medicine 01/18/21
--- OUTSIDE RECORDS SUMMARY | 2024-07-15 13:40 | XMS_ITS | Patient Health Record ---
Author Organization [facility] Planning Address [address] [place] [address] Care Team Providers Care Medical Insurance Coder Name Role Phone Leo Rodriguez Primary Care Provider Freddy Collins Unavailable [phone] Allergies Allergen (clinical drug ingredient) Drug/Non Drug Allergy documented on EMR Reaction Allergy Type Onset Date Status Substance with penicillin structure and antibacterial mechanism of action (substance) Penicillins (uncoded) Unknown Allergy Active PredniSONE Jittery/ Anxious Drug Allergy Active Reason For Referral No Information Medications Medication SIG (Take, Route, Frequency, Duration) Notes Start Date End Date Status Cymbalta 60 MG take 1 capsule (60MG ) by oral route every day Oral Daily for 90 days 03/03/2014 Active Synthroid 150 MCG take 1 tablet (150MC G) by oral route every day Oral Once a day for 90 days 04/25/2013 Active Lisinopril-hydroCHLOROthiazi d e 20-25 MG TAKE ONE TABLET BY MOUTH EVERY DAY Active Albuterol Sulfate HFA 108 (9 0 Base) MCG/ACT 2 puffs as needed Inhalation every 4 hrs 12/14/2014 Active cloNIDine HCl 0.1 MG TAKE ONE TABLET BY MOUTH DAILY Active Mirapex 0.125 MG 1 tablet before bedt jan Orally Once a day for 30 day(s) 06/11/2014 Active Pramipexole Dihydrochloride 0.125 MG TAKE ONE TABLET BY MOUTH BEFORE BEDTIME Active Meloxicam 15 MG TAKE ONE TABLET BY MOUTH EVERY DAY Active Social History Tobacco use other than smoking: Question Answer Notes Are you an other tobacco user? No Problems Problem Type SNOMED Code ICD Code Onset Dates Problem Status W/U Status Risk Notes Problem Hypothyroidism (74211094) Unspecified hypothyroidism (244.9) Active confirmed ([facility] ) Added By: Dennise Dickerson Problem Depressive disorder (71405917) Depressive disorder, not elsewhere classified (311) 11/22/19 12 Active confirmed ([facility] ) Added By: Dennise Dickerson Problem Essential hypertension (85402605) Unspecified essential hypertension (401.9) Active confirmed ([facility] ) Added By: Dennise Dickerson Problem Myalgia/myositis - multiple (430625992) Unspecified myalgia and myositis (729.1) 11/22/19 12 Active confirmed ([facility] ) Added By: Dennise Aguilarer Problem 710275780 Osteoarthritis, hip, bilateral (715.95) Active confirmed Problem 097675002 Lumbar radiculopathy, chronic (724.4) Active confirmed Problem 016070535 Radiculopathy, lumbar region (M54.16) Active confirmed Problem 90064187 Essential hypertension (I10) Active confirmed Problem 18538039 Iron deficiency anemia, unspecified iron deficiency anemia type (D50.9) Active confirmed Plan Of Treatment No Information Insurance Providers Payer Name Payer Address Payer Phone Subscriber Number Group Number Insured Name Patient Relationship to Insured Coverage Start Date Coverage End Date [facility] [address] [place], [place] [id number] Taryn Greco Self - patient is the insured 5 [facility] [address] [place] [address] [id number] Taryn Greoc Self - patient is the insured 6 Medical (General) History Medical History History ICD Code fibromyalgia hypertension hypothyroid Surgical History Surgery Date(Month/Year) leep tonsillectomy Bilateral tubal ligation
--- OUTSIDE RECORDS SUMMARY | 2024-07-15 13:40 | XMS_ITS | Encounter Summary ---
Author Organization [facility] Address [address] [place] [address] Care Team Providers Care Well Tester Name Role Phone Unavailable Primary Care Provider Unavailabl e Encounter Details Date Type Department Care Team (Late st Contact Info) Description 09/07/2018 Abstract SFL CONVERSION [address] [place] [id number] , Generic Conversion, Social History Tobacco Use Types Packs/Day Years Used Date Smoking Tobacco: Never Assessed Comments Unknown Sex and Gender Information Value Date Recorded Sex Assigned at Not on file Legal Sex Female 5:00 PM CDT Gender Identity Not on file Sexual Orientation Not on file documented as of this encounter Plan of Treatment Not on file documented as of this encounter Visit Diagnoses Not on filedocumented in this encounter
--- OUTSIDE RECORDS SUMMARY | 2024-07-15 13:40 | XMS_ITS | Clinical Summary ---
Author Organization [facility] Address [address] [address] Phone Care Team Providers Care It Security Specialist Name Role Phone Eva Nolen MD Primary Care Provider [phone] Allergies Active Allergy Reactions Criticality Noted Date Comments Levofloxacin Unknown 07/25/2016 Other reaction(s): Unknown Penicillins Nausea Only 07/25/2016 Other reaction(s): Nausea Only Prednazoline Unknown 07/25/2016 Prednisone Medications hydroCHLOROthia zide (HYDRODIURIL) 25 MG tablet 1 qday 0 04/04/2018 Active atorvastatin (LIPITOR) 20 MG tablet 1 qday 0 04/04/2018 Active lisinopril (PRINIVIL,ZESTR IL) 40 MG tablet 1 qday 0 04/04/2018 Active pramipexole (MIRAPEX) 0.125 MG tablet 1 qhs 0 04/04/2018 Active meloxicam (MOBIC) 15 MG tablet 1 qday 0 04/04/2018 Active levothyroxine (SYNTHROID, LEVOTHROID) 150 MCG tablet 1 qday 0 04/04/2018 Active labetalol (NORMODYNE) 100 MG tablet 1 bid 4 03/06/2018 Active amLODIPine (NORVASC) 10 MG tablet 1 qday 0 04/04/2018 Active DULoxetine (CYMBALTA) [address] capsule 1 qday 0 04/04/2018 Activ e albuterol HFA (VENTOLIN HFA) 108 (90 Base) MCG/ACT inhaler as directed 0 04/04/2018 A ctive Active Problems Problem Noted Date Diagnosed Date Mixed hyperlipidemia 04/04/2018 Chronic kidney disease, stage 3 (moderate) 03/06 Hypertensive chronic kidney disease with stage 1 through stage 4 chronic kidney disease, or unspecified chronic kidney disease 03/06/2018 Calculus of kidney 03/06/2018 Primary generalized osteoarthritis 03/06/2018 Fibromyalgia 03/06/2018 Essential hypertension 01/24/2018 Diastolic dysfunction 01/24/2018 Family History Medical History Relation Comments Diabetes mellitus Father Heart disease Father Hypertensive disorder Father Diabetes mellitus Mother Hypertensive disorder Mother Heart disease Sibling Kidney disease Neg Hx Kidney stone Neg Hx Relation Status Comments Father Mother Sibling Social History Tobacco Use Types Packs/Day Years Used Date Smoking Tobacco: Heavy Smoker Smokeless Tobacco: Never Tobacco Cessation:Ready to Q uit: No; Counseling Given: Yes Alcohol Use Standard Drinks/Week Comments No 0 (1 standard drink = 0.6 oz pur e alcohol) Comments Unknown Sex and Gender Information Value Date Recorded Sex Assigned at Not on file Legal Sex Female 8:43 AM [facility] Gender Identity Not on file Sexual Orientation Not on file Last Filed Vital Signs Vital Sign Reading Time Taken Comments Blood Pressure 138/74 12/12/2018 10:58 AM CDT Pulse - - Temperature 36.9 C (98.5 F) 12/12/2018 10:58 AM CDT Respiratory Rate - - Oxygen Saturation - - Inhaled Oxygen Concentration - - Weight 94.8 kg (209 lb) 12/12/2018 10:58 AM CDT Height 167.6 cm (5' 6 ) 12/12/2018 10:58 AM CDT Body Mass Index 33.73 12/12/2018 10:58 AM CDT Plan of Treatment Health Maintenance Due Date Last Done Comments Influenza Vaccine (Season Ended) 2024 Insurance MEDICARE Care Teams It Security Specialist Relationship Specialty Start Date End Date Eva Nolen MD [address] [facility] [address] [facility] [address] [place] [address] PCP - General Internal Medicine 07/09/18
[2024-07-15 13:41] LABS: Parathyroid Intact 101.6 pg/mL (14.5-75.2)
--- OUTSIDE RECORDS SUMMARY | 2024-07-15 13:41 | XMS_ITS | Clinical Summary ---
Author Organization [facility] Address [address] [place] [address] Care Team Providers Care Berry Picker Machine Operator Name Role Phone Unavailable Primary Care Provider Unavailabl e Social History Tobacco Use Types Packs/Day Years Used Date Smoking Tobacco: Never Assessed Comments Unknown Sex and Gender Information Value Date Recorded Sex Assigned at Not on file Legal Sex Female 5:00 PM CDT Gender Identity Not on file Sexual Orientation Not on file Plan of Treatment Health Maintenance Due Date Last Done Comments Cervical Cancer Screening Pa p Smear (Age 30 to 64) Every 3 Years 1963 Colorectal Cancer Screening Colonoscopy (10 Years) 1963 Annual Physical 1966 Hepatitis C 1981 DTaP, Tdap and Td Vaccines ( 1 - Tdap) 1982 Cervical Cancer Screening Pa p with HPV Testing (Age 30 to 64) Every 5 Years 1993 Cervical Cancer Screening with HPV 1993 Mammogram Screening 2003 Zoster Vaccines (1 of 2) 2013 COVID-19 Vaccine (2023-2 5 season) 2023 RSV Immunization or 60+ Years (1 - 1-dose 75+ series) 2038 Meningococcal B Vaccine Aged Out No l onger eligible based on patient's age to complete this topic Meningococcal Vaccine Aged Out No ghazala stiven eligible based on patient's age to complete this topic Pneumococcal Vaccine: Pediat rics (0 to 5 Years) and At-Risk Patients (6 to 49 Years) Aged Out No longer eligible b ased on patient's age to complete this topic RSV Immunizations Under 20 Months Aged Out No longer eligible based on patient's age to complete this topic
--- OUTSIDE RECORDS SUMMARY | 2024-07-15 13:41 | XMS_ITS | Clinical Summary ---
Author Organization [facility] [address] Address [address] [place] [address] Care Team Providers Care Registered Nurse Cardiovascular Icu Name Role Phone Jennifer Peraza MD Primary Care Provider [phone] Allergies Active Allergy Reactions Criticality Noted Date [...] Hypothyroidism 08/27/2021 Major depressive disorder in remission 2 Mixed hyperlipidemia 08/27/2021 Iron deficiency anemia 08/27/2021 Hypothyroidism 08/27/2021 Chronic obstructive pulmonar y disease with acute lower respiratory infection 08/27/2021 Mixed hyperlipidemia 04/04/2018 Fibromyalgia 03/06/2018 Idiopathic osteoarthritis 03/06/2018 Essential hypertension 01/24/2018 Diastolic dysfunction 01/24/2018 Surgical History Surgery Date Site/Laterality Comments REPLACEMENT TOTAL HIP LATERAL POSITION Medical History Medical History Date Comments Diastolic dysfunction Hypothyroidism Mixed hyperlipidemia Essential hypertension Major depressive disorder in remission Family History Medical History Relation Name Comments Heart disease Father bypass Father Hypertension Mother Relation Name Status Comments Father (Age 77) Mother Social History Tobacco Use Types Packs/Day Years [...] on file Sexual Orientation Not on file Obstetrics History Last Filed Vital Signs Vital Sign Reading [...] 12/20/2023 9:38 AM CDT Plan of Treatment Health Maintenance Due Date Last Done Comments Breast Cancer Screening-Mammogram 1963 Cervical Cancer Screening 1963 Colon Cancer Screening-Colonoscopy 1963 Depression Screening 1963 Hepatitis C Screening 1963 DTaP/Tdap/Td Vaccine (1 - Tdap) 1974 Hepatitis B Screening 1981 Regular Well Visit/Exam 18-64 1981 Pneumococcal vaccine <65 (1 of 2 - PCV) 1982 Zoster Vaccine (1 of 2) 2013 Influenza Vaccine (#1) 2023 01/23/2019, 2017 Insurance MEDICARE MEDICARE Care Teams Registered Nurse Cardiovascular Icu Relationship Specialty Start Date End Date Jennifer Peraza MD PCP - General Family Medicine 01/18/21
[2024-07-15 13:45] LABS: Creatinine Urine 179.7 mg/dL; Total Protein Urine Random < 5 mg/dL; Ur Ttl Prot Creatinine Ratio < 0.03 mg/mg (0-0.20)
[2024-07-15 13:46] LABS: Vitamin D 25 Hydroxy 50.7 ng/mL
[2024-07-15 14:00] LABS: Thyroid Stimulating Hormone Reflex 0.369 uIU/mL (0.465-4.68)
[2024-07-15 14:45] LABS: Free T4 Free Thyroxine Reflex 1.33 ng/dL (0.78-2.19)
== END 2024-07-15 12:49 | disposition home or self-care (01) ==
PROVIDERS: Internal Medicine Nephrology; PCP Family Medicine; Visit Provider Family Medicine
DX: I12.9 Hypertensive chronic kidney disease with stage 1 through stage 4 chronic kidney disease, or unspecified chronic kidney disease (principal); N18.32 Chronic kidney disease, stage 3b; N25.81 Secondary hyperparathyroidism of renal origin; E55.9 Vitamin D deficiency, unspecified; R73.03 Prediabetes; E78.5 Hyperlipidemia, unspecified; E03.9 Hypothyroidism, unspecified; E78.2 Mixed hyperlipidemia
CPT/HCPCS: 36415; 80061; 80069; 80076; 82306; 82570; 83036; 83970; 84156; 84439; 84443; 84480

== ENCOUNTER 2024-09-23 10:21 | Outpatient (CLI) | payer MEDICARE, SELFPAY ==
[2024-09-23 10:30] LABS: Add Urine Microscopic? YES; Appearance Urine Clear (Clear); Bilirubin Urine Negative (Negative); Blood Urine Negative (Negative); Color Urine Light Yellow (Yellow); Glucose Urine UA Negative (Negative); Ketones Urine Negative (Negative); Leukocyte Esterase Ur 1+ LEU/UL (Negative); Nitrate Urine Negative (Negative); Protein Urine Negative (Negative); Urobilinogen Urine 0.2 mg/dL (0.2-1.0)
[2024-09-23 10:35] LABS: RBC Urine None seen /hpf (0-2); Squamous Epithelial Cell Urine Moderate /hpf (Few)
[2024-09-23 10:36] LABS: Bacteria Urine Trace /hpf
== END 2024-09-23 10:22 | disposition home or self-care (01) ==
LOC: CHSLAB 10:22
PROVIDERS: PCP Family Medicine; Visit Provider Family Medicine
DX: R30.0 Dysuria (principal)
CPT/HCPCS: 81001

== ENCOUNTER 2024-09-25 12:45 | Outpatient (CLI) | payer MEDICARE, MEDICAID, SELFPAY ==
--- NOTE | ~2024-09-25 | MM_ITS ---
EXAMINATION: MM screening leon BI w pearl HISTORY: Screening mammogram TECHNIQUE: Craniocaudal and mediolateral oblique 3-D tomosynthesis images were obtained and synthetic 2-D images were generated. CAD analysis was submitted and interpreted. COMPARISON: 10/07/2020 BREAST PARENCHYMAL COMPOSITION:Not Dense. There are scattered areas of fibroglandular density. FINDINGS: No suspicious mass, calcification, or architectural distortion are identified in either josue ast to suggest malignancy. There has been no suspicious interval change. IMPRESSION: No mammographic evidence of malignancy. Recommend routine screening mammography in one year. BI-RADS Category 1: Negative Reviewed, dictated and finalized at location .
--- NOTE | ~2024-09-25 | DEXA_ITS ---
Bone Density Report Name: SARAH RAMSEY Age: 59 Sex: Female Ethnicity: White Date of : 1965 Indication: postmenopausal; screening for osteoporosis; height loss; Referring Provider: Jennifer Peraza Study: Bone densitometry was performed. Exam Date: September 25, 2024 Accession number: [id number] Bone Density: Region BMD T-score Z-score Classification AP Spine(L1, L2, L3) 1.156 1.3 2.7 Normal Femoral Neck (Left) 0.661 -1.7 -0.3 Osteopenia Total Hip (Left) 0.907 -0.3 0.7 Normal World Health Organization criteria for BMD impression classify patients as: Normal (T-score at or above -1.0), Osteopenia (T-score between -1.0 and -2.5), or Osteoporosis (T-score at or below -2.5). 10-year Fracture Risk(1): Major Osteoporotic Fracture 8.3% Hip Fracture 1.3% Reported Risk Factors: [place] (), Neck BMD=0.661, BMI=33.3, smoking (1) FRAX(R) Version 3.08. Fracture probability calculated for an untreated patient. Fracture probability may be lower if the patient has received treatment. Previous Exams: Region Exam Age BMD T-score BMD Change BMD Change Date g/cm2 vs Baseline vs Previous AP Spine (L1-L3) 09/25/2024 59 1.156 1.3 0.049 (4.4%)# 0.049 (4.4%)# 10/07/2020 55 1.108 0.8 Total Hip(Left) 09/25/2024 59 0.907 -0.3 0.040 (4.6%)# 0.040 (4.6%)# 10/07/2020 55 0.867 -0.6 *Denotes significance at 95% confidence level, LSC for AP Spine = 0.022 g/cm2, LSC for Total Hip = 0.027 g/cm2 # Denotes dissimilar scan types or analysis methods Clinical Information Provided by Patient: Smokes Patient maximum height was 67 Menopause Age: 53 No regular weight bearing exercise Drinks caffeinated beverages Onset of menses at age 11 Number of children 3 Impression: The patient has low bone mass, based on the Left Femoral Neck T-score. The patient has an estimated ten-year risk of hip fracture of 1.3% and an estimated ten-year risk of major fracture of 8.3%, based on the WHO FRAX algorithm. The patient has risk factors, including: smoking. No significant bone loss was observed. Discussion: BONE DENSITY IS LOW AT ONE OR MORE SKELETAL SITES. This patient's lowest T-score is low at one or more skeletal sites. It meets the World Health Organization's (WHO) criteria for ?low bone mass? (T-score between -1.0 and -2.5). The patient's 10-year risk of fracture as calculated by FRAX is less than the threshold where pharmacological therapy is recommended by the National Osteoporosis Foundation (NOF). However, all treatment decisions require clinical judgment and consideration of individual patient factors, including patient preferences, comorbidities, previous drug use, risk factors not captured in the FRAX model (e.g., frailty, falls, vitamin D deficiency, increased bone turnover, interval significant decline in bone density) and possible under or overestimation of fracture risk by FRAX. The patient should follow a healthful lifestyle (good nutrition with adequate calcium and vitamin D, and appropriate weight-bearing exercise). Follow-Up: Consider repeating this study in 2 to 3 years to reassess this patient's status, or sooner if there is some new clinical indication. Reported by: ANKUR on 09/25/2024 1:17:00 PM. Reviewed, dictated and finalized at location A.
== END 2024-09-25 12:46 | disposition home or self-care (01) ==
PROVIDERS: PCP Family Medicine; Visit Provider Family Medicine
DX: Z12.31 Encounter for screening mammogram for malignant neoplasm of breast (principal); Z78.0 Asymptomatic menopausal state; M85.88 Other specified disorders of bone density and structure, other site
CPT/HCPCS: 77063; 77067; 77080

== ENCOUNTER 2024-10-01 14:30 | Outpatient (RCR) | payer MEDICARE, MEDICAID, SELFPAY ==
--- NOTE | 2024-10-08 08:57 | BUOTOPEVAL ---
Assessment and note entered by Cristina Jameson OT Evaluation Information Assessment Status Evaluation Diagnosis Pain in R finger, pain in L finger ICD-10 Condition Codes (OT) Generalized muscle weakness M62.81 Onset 2023 Assessment OT Clinical Summary The patient is a 59 year old female who was referred to outpatient OT due to B finger pain. She previously demonstrated no pain and WNL podiatric assistant and pinch strength of B hands. She now demonstrates minimally impaired podiatric assistant/pinch strength and reports of 6/10 pain at its worst when B thumbs hurt. She demonstrates continuous pain in R thumb and has a difficult time performing daily activities. She scored 50% on QuickDASH questionnaire at evaluation demonstrating moderate difficulty with cutting food, gardening, doing records analysis manager, and sleep . The patient requires skilled OT to address deficits and decrease pain symptoms for ability to engage in ADLs/IADLs. Plan of Care Interventions Therapeutic Exercise,Manual Therapy,Neuro Re- education,Therapeutic Activities,Hot Pack/Cold Pack,Sensory Integrative Techniques,Self-Care/Home Management,Ultrasound OT Services Indicated Yes Treatment Frequency and 1-2x/week for 10 visits. Duration These treatments will address the objective and functional deficits as defined above. The patient will be advanced safely and appropriately in order for the patient to progress towards his/her prior level of function. Additional exercises will be introduced and as well as a comprehensive home exercise program upon discharge, if needed, ?to ensure carryover of functional gains achieved in the clinic. This treatment plan has been reviewed and agreement upon by the patient.
--- NOTE | 2024-10-08 08:57 | OPREHPOC ---
Outpatient Therapy Plan of Care This is a Multidisciplinary Plan of Care that may contain components documented by all disciplines (PT, OT, and ST.) OT Problem 1 OT Problem #1 Knowledge Deficit OT Goal 1 Goal / Goal Update The patient will demonstrate 100% knowledge and return demonstration for UE HEP needed to increase strength and avoid pain of B hands. Target Visit 10 OT Goal 2 Goal / Goal Update The patient will demonstrate increased silo filler and pinch strength of B UE with R silo filler strength >50 lbs, lateral pinch at >10 lbs, and L lateral pinch at >10 lbs in order to open containers for cooking tasks and use can rn clinical coordinator. Evaluation: R 41 lbs silo filler R 7 lbs lateral pinch L 7 lbs lateral pinch NORMS: R 55 lbs silo filler B 15 lbs lateral pinch Target Visit 10 OT Goal 1 Goal / Goal Update The patient will demonstrate <3/10 pain in B hands at worst to avoid disuse of hands needed to perform ADLs and IADLs. Target Visit 10 OT Goal 2 Goal / Goal Update The patient will demonstrates increased function of B hands scoring <35% on QuickDASH questionnaire needed to perform pulling weeds and carrying grocery bags without discomfort. Target Visit 10
--- NOTE | 2024-11-04 12:44 | BUOTOPDC ---
Assessment and note entered by Cristina Jameson, OT Evaluation Information Assessment Status Discharge Diagnosis Pain in R finger, pain in L finger ICD-10 Condition Codes (OT) Generalized muscle weakness M62.81 Onset 2023 Subjective Information The patient reports that her L thumb has been feeling better. She has no pain in L hand and mild to moderate pain in R thumb due to increased use of R dominant hand. She reports increased use of B hands and thinks that her R hand pain is mostly from driving long distances with sustained grasp. She reports feeling improvement in B hands and knows that she should continue stretches and exercises to maintain strength and avoid pain. Reported Pain Level Pain Score 0: Self Report Assessment OT Clinical Summary The patient demonstrates significant progress in pain symptoms, workers compensation analyst and pinch strength, understanding of HEP, and overall function of B hands through improvement in QuickDASH questionnaire scoring. Patient demonstrates 4/10 pain in R thumb/hand and 0/10 pain in L thumb/hand with the patient utilizing R UE more due to dominant hand. She demonstrates significant increase in workers compensation analyst and pinch strength demonstrating WNL for age range and improved overall function of B hands through improvement of QuickDASH score from 50% to 9.1% at discharge. Therapist educated patient to continue stretching, modalities (hot pack), and exercises at home to maintain supporting structures strong and avoid decline. The patient demonstrates good understanding and is discharged with UE HEP. Plan of Care OT Services Indicated No
--- NOTE | 2024-11-04 12:45 | OPREHPOC ---
Outpatient Therapy Plan of Care This is a Multidisciplinary Plan of Care that may contain components documented by all disciplines (PT, OT, and ST.) OT Problem 1 OT Problem #1 Knowledge Deficit OT Goal 1 Goal / Goal Update The patient will demonstrate 100% knowledge and return demonstration for UE HEP needed to increase strength and avoid pain of B hands. GOAL MET; DISCONTINUED Target Visit 10 Progress Met OT Goal 2 Goal / Goal Update The patient will demonstrate increased soaking room operator and pinch strength of B UE with R soaking room operator strength >50 lbs, lateral pinch at >10 lbs, and L lateral pinch at >10 lbs in order to open containers for cooking tasks and use can gift shop assistant. GOAL MET; DISCONTINUED 11/03/2024 Evaluation: R 41 lbs soaking room operator R 7 lbs lateral pinch L 7 lbs lateral pinch NORMS: R 55 lbs soaking room operator B 15 lbs lateral pinch Discharge: R 58 lbs soaking room operator R 9 lbs lateral pinch L 9 lbs lateral pinch Target Visit 10 Progress Met OT Goal 1 Goal / Goal Update The patient will demonstrate <3/10 pain in B hands at worst to avoid disuse of hands needed to perform ADLs and IADLs. GOAL PARTIALLY MET; DISCONTINUE 11/03/2024 Discharge: 10 Target Visit 10 Progress Partially Met OT Goal 2 Goal / Goal Update The patient will demonstrates increased function of B hands scoring <35% on QuickDASH questionnaire needed to perform pulling weeds and carrying grocery bags without discomfort. GOAL MET; DISCONTINUE 11/03/2024 9.1% Target Visit 10 Progress Met
== END 2024-11-03 16:29 | disposition home or self-care (01) ==
LOC: CHSOT 14:30
PROVIDERS: Visit Provider Family Medicine
DX: M79.644 Pain in right finger(s) (principal); M79.645 Pain in left finger(s)
CPT/HCPCS: 97035; 97110; 97140; 97165; 97530

== ENCOUNTER 2024-10-02 14:50 | Outpatient (CLI) | payer MEDICARE, SELFPAY ==
--- NOTE | ~2024-10-02 | MR_ITS ---
MRI of the lumbar spine Clinical History: Radiculopathy Technique: Axial T2-weighted images, and sagittal T1-weighted, T2-weighted, and T2 fat-sat images wer e acquired. Findings: There is no fracture or subluxation of lumbar spine. Otherwise maintain alignment. No suspi cious bone marrow signal abnormality seen. At L1-L2 and L2-L3, intervertebral discs are normal in signal and position. There is minimal facet hy pertrophy levels. No spinal canal stenosis or neural foraminal narrowing at these levels. At L3-L4, there is minimal degenerative disc narrowing with minimal disc bulge. There is minimal face t hypertrophy. No spinal canal stenosis or neural foraminal narrowing. At L4-L5, there is mild disc bulge with severe facet arthropathy. There is moderate to severe spinal canal stenosis/thecal sac compression. There is moderate left neural foraminal narrowing. Right neura l foramen preserved. At L5-S1, there is mild disc bulge with moderate facet arthropathy. No central canal stenosis. There is minimal left neural foraminal narrowing. Right neural foramen preserved. Paravertebral soft tissues are unremarkable. Impression: Moderate to advanced degenerative spondylosis at L4-L5, as above. Mild degenerative changes otherwise in the lumbar spine. Reviewed, dictated and finalized at location . Impression: Moderate to advanced degenerative spondylosis at L4-L5, as above. Mild degenerative changes otherwise in the lumbar spine.
--- OUTSIDE RECORDS SUMMARY | 2024-10-02 14:54 | XMS_ITS | Clinical Summary ---
Author Organization [facility] [address] Address [address] [place] [address] Care Team Providers Care Teacher Preschool Name Role Phone Jennifer Peraza MD Primary Care Provider [phone] Allergies Active Allergy Reactions Criticality Noted Date [...] or shortness of breath 8.5 g 08/28/19 22 Active colchicine (COLCRYS) 0.6 mg tablet 03/20/20 [...] BY MOUTH TWICE A DAY 180 tablet 09/20/19 25 Active metoprolol (LOPRESSOR) 100 mg tablet TAKE ONE TABLET BY MOUTH TWICE A DAY 180 tablet 06/20/19 25 025 Discontinued Active Problems Problem Noted Date [...] 9:38 AM CDT Height 170.2 cm (5' 7) 12/20/2023 9:38 AM CDT Body Mass Index [...] Vaccine (1 of 2) 2013 Influenza Vaccine (Season Ended) 2024 01/24/20 19, 01/03/2018 Insurance MEDICARE MEDICARE Care Teams Teacher Preschool Relationship Specialty Start Date End Date Jennifer Peraza MD PCP - General Family Medicine 01/18/21
--- OUTSIDE RECORDS SUMMARY | 2024-10-02 14:54 | XMS_ITS | Patient Health Record ---
Author Organization [facility] [[email or web address]] Address [facility] [address] Care Team Providers Care Senior Director Creative Services Name Role Phone Leo Rodriguez Primary Care Provider Freddy Collins Unavailable [phone] Allergies Allergen (clinical drug ingredient) Drug/Non Drug [...] ) by oral route every day Oral Daily; Duration: 90 days 03/03/2014 Active Synthroid 150 MCG take 1 tablet (150MC G) by oral route every day Oral Once a day; Duration: 90 days 04/25/2013 Active Lisinopril-hydroCHLOROthiazi d e 20-25 MG TAKE ONE TABLET BY MOUTH EVERY DAY Active Albuterol Sulfate HFA 108 (9 0 Base) MCG/ACT 2 puffs as needed Inhalation every 4 hrs 12/14/2014 Active cloNIDine HCl 0.1 MG TAKE ONE TABLET BY MOUTH DAILY Active Mirapex 0.125 MG 1 tablet before bedt jan Orally Once a day; Duration: 30 day(s) 06/11/2014 Active Pramipexole Dihydrochloride 0.125 MG TAKE ONE TABLET BY MOUTH BEFORE BEDTIME Active Meloxicam 15 MG TAKE ONE TABLET BY MOUTH EVERY DAY Active Social History Tobacco use other than smoking: Question Answer Notes Are you an other tobacco user? No Problems Problem Type SNOMED Code ICD Code Onset Dates Problem Status W/U Status Risk Notes Problem Hypothyroidism (48272274) Unspecified hypothyroidism (244.9) Active confirmed ([facility] ) Added By: Dennise Dickerson Problem Depressive disorder (64926127) Depressive disorder, not elsewhere classified (311) 11/22/19 12 Active confirmed ([facility] ) Added By: Dennise Dickerson Problem Essential hypertension (70813326) Unspecified essential hypertension (401.9) Active confirmed ([facility] ) Added By: Dennise Dickerson Problem Muscle pain (33419626) Unspecified myalgia and myositis (729.1) 11/22/19 12 Active confirmed ([facility] ) Added By: Dennise Dickerson Problem Degenerative joint disease of pelvis (600918471) Osteoarthritis, hip, bilateral (715.95) Active confirmed Problem Lumbar radiculopathy (638086896) Lumbar radiculopathy, chronic (724.4) Active confirmed Problem Lumbar radiculopathy (172725394) Radiculopathy, lumbar region (M54.16) Active confirmed Problem Essential hypertension (85367312) Essential hypertension (I10) Active confirmed Problem Iron deficiency anemia (37662736) Iron deficiency anemia, unspecified iron deficiency anemia type (D50.9) Active confirmed Plan Of Treatment No Information Insurance Providers Payer Name Payer Address Payer Phone Subscriber Number Group Number Insured Name Patient Relationship to Insured Coverage Start Date Coverage End Date [facility] [address] [place], [place] [id number] Taryn Greco Self - patient is the insured 5 5 [employer] Of [facility] [address] [place] [address] [id number] Taryn Greco Self - patient is the insured 6 Medical (General) History Medical History History ICD Code fibromyalgia hypertension hypothyroid Surgical History Surgery Date(Month/Year) Bilateral tubal ligation tonsillectomy leep
--- OUTSIDE RECORDS SUMMARY | 2024-10-02 14:54 | XMS_ITS | Clinical Summary ---
Author Organization [facility] Address [address], [place] [address] Phone Care Team Providers Care Stripper Latex Name Role Phone Eva Nolen MD Primary Care Provider [phone] Allergies Active Allergy Reactions Criticality Noted Date [...] on file Legal Sex Female 8:43 AM [facility] Gender Identity Not on file Sexual Orientation [...] 10:58 AM CDT Height 167.6 cm (5' 6) 12/12/2018 10:58 AM CDT Body Mass Index 33.73 12/12/2018 10:58 AM CDT Plan of Treatment Health Maintenance Due Date Last Done Comments Influenza Vaccine (Season Ended) 2024 Insurance MEDICARE Care Teams Stripper Latex Relationship Specialty Start Date End Date Eva Nolen MD [address] [facility] [address] [facility] [address] [place] [address] PCP - General Internal Medicine 07/09/18
--- OUTSIDE RECORDS SUMMARY | 2024-10-02 14:54 | XMS_ITS | Clinical Summary ---
Author Organization [facility] Address [address] [address] Phone Care Team Providers Care Linotype Machinist Apprentice Name Role Phone Mikhail Mayorga MD Primary Care Provider [phone] Allergies Active Allergy Reactions Criticality Noted Date Comments Levofloxacin Unknown 07/25/2016 Penicillins Nausea 07/25/2016 Prednazoline Unknown 07/25/2016 Medications levothyroxine (SYNTHROID) 175 MCG Tablet Take 175 mcg by mouth daily. Active metoprolol Succinate (TOPROL-XL) 25 MG TABLET SR 24 HR Take 25 mg by mouth daily. Active lisinopril-hydr oCHLOROthiazide (PRINZIDE, ZESTORETIC) 20-25 MG Tablet Take 1 Tab by mouth daily. Active DULoxetine (CYMBALTA) [address] Particles Take 60 mg by mouth daily. Active pramipexole (MIRAPEX) 0.125 MG Tablet Take 0.125 mg by mouth 3 times daily. Active Meloxicam 15 MG Tablet Take 15 mg by mouth daily. Active HYDROcodone-nicole taminophen (NORCO) 5-325 MG Tablet Take 1 Tab by mouth every 4 hours as needed for Pain. Active metroNIDAZOLE (FLAGYL) 500 MG Tablet Take 1 Tab by mouth 3 times daily. 30 Tab 0 7 Active polyethylene glycol (MIRALAX) Powder Use entire 255g bottle with 64oz of clear liquid as directed for colonoscopy prep. 255 g 0 7 Active Family History Medical History Relation Name Comments Diabetes Father Heart Disease Father Hypertension Father Hyperthyroidism Father Diabetes Mother Hypertension Mother Hyperthyroidism Mother Relation Name Status Comments Father Mother Social History Tobacco Use Types Packs/Day Years Used Date Smoking Tobacco: Every Day Cigarettes 1 40 Alcohol Use Standard Drinks/Week Comments No 0 (1 standard drink = 0.6 oz pur e alcohol) Comments Unknown Sex and Gender Information Value Date Recorded Sex Assigned at Not on file Legal Sex Female 2:30 PM LEAD LOADER Gender Identity Not on file Sexual Orientation Not on file Occupation Industry Job Start Date Job End Date disabled Not on file Not on file Not on file Last Filed Vital Signs Vital Sign Reading Time Taken Comments Blood Pressure 160/92 07/25/2016 1:31 PM CDT Pulse 79 07/25/2016 1:31 PM CDT Temperature 36.3 C (97.4 F) 07/25/2016 1:31 PM CDT Respiratory Rate 16 07/25/2016 1:31 PM CDT Oxygen Saturation 97% 07/25/2016 1:31 PM CDT Inhaled Oxygen Concentration - - Weight 87.5 kg (193 lb) 07/27/2016 9:05 AM CDT Height 172.7 cm (5' 8) 07/27/2016 9:05 AM CDT Body Mass Index 29.35 07/27/2016 9:05 AM CDT Plan of Treatment Health Maintenance Due Date Last Done Comments Hepatitis C Virus (HCV) Screening 1965 TdaP Immunization 1963 Pap Smear 1984 Cervical Cancer Screening (CCS) 1993 HPV/Cotest 1993 Colonoscopy 2008 Colorectal Cancer Screening 2008 Cologuard 2013 Immunochemical Fecal Occult Blood 2013 Mammogram 2013 Pneumococcal Immunization (5 0+ years) (1 of 1 - PCV) 2013 Zoster Immunization (1 of 2) 2013 Influenza Immunization (#1) 2023 SARS-COV-2 Immunization ( - 2023-25 season) 2023 Respiratory Syncytial Virus (RSV) Immunization (Adult) (1 - 1-dose 75+ series) 2038 Hepatitis B Immunization Aged Out No longer eligible based on patient's age to complete this topic Meningococcal Immunization (ACWY) Aged Out No longer eligible based on patient's age to complete this topic Pneumococcal Immunization Combined Aged Out No longer eligible based on patient's age to complete this topic Rotavirus Immunization Aged Out No lo nger eligible based on patient's age to complete this topic Insurance MEDICARE Care Teams Linotype Machinist Apprentice Relationship Specialty Start Date End Date Mikhail Mayorga MD [address] [place] [address] PCP - General Family Medicine 06/06/16
--- OUTSIDE RECORDS SUMMARY | 2024-10-02 14:54 | XMS_ITS | Clinical Summary ---
Author Organization [facility] Address [address] [place] [address] Care Team Providers Care Family Consumer Science Fcs Teacher Name Role Phone Unavailable Primary Care Provider [...] Screening with HPV 1993 Mammogram Screening 2003 Pneumococcal Vaccine: 50+ Ye ars (1 of 1 - PCV) 2013 Zoster Vaccines (1 of 2) 2013 COVID-19 Vaccine ( - 2023-2 5 season) 2023 RSV Immunization or 60+ [...]
--- OUTSIDE RECORDS SUMMARY | 2024-10-02 14:54 | XMS_ITS | Referral Summary ---
Author Organization [facility] [address] Address [address] [place] [address] Care Team Providers Care Turner Splitter Machine Operator Name Role Phone Jennifer Peraza MD Primary Care Provider [phone] Allergies Active Allergy Reactions Criticality Noted Date [...] on file Insurance MEDICARE MEDICARE Care Teams Turner Splitter Machine Operator Relationship Specialty Start Date End Date Jennifer Peraza MD PCP - General Family Medicine 01/18/21
--- OUTSIDE RECORDS SUMMARY | 2024-10-02 14:54 | XMS_ITS | Encounter Summary ---
Author Organization [facility] Address [address] [place] [address] Care Team Providers Care Extruding Department Supervisor Name Role Phone Unavailable Primary Care Provider Unavailabl e Encounter Details Date Type Department Care Team (Late st Contact Info) Description 09/07/2018 Abstract SFL CONVERSION [address] [place] [id number] , Generic Conversion, Social History Tobacco Use [...]
== END 2024-10-02 14:51 | disposition home or self-care (01) ==
LOC: CHSIMG 14:52
PROVIDERS: PCP Family Medicine; Visit Provider Family Medicine
DX: M54.16 Radiculopathy, lumbar region (principal); M43.06 Spondylolysis, lumbar region
CPT/HCPCS: 72148

== ENCOUNTER 2025-01-16 12:02 | Outpatient (CLI) | payer MEDICARE, SELFPAY ==
[2025-01-16 13:20] LABS: Albumin Level 4.2 g/dL (3.5-5.1); Anion Gap 9 mmol/L (4-12); Blood Urea Nitrogen 18 mg/dL (7-17); Calcium 8.7 mg/dL (8.4-10.2); Carbon Dioxide 29 mmol/L (22-30); Chloride 95 mmol/L (98-107); Estimated Glomerular Filt Rate 33; Glucose 133 mg/dL (65-110); Potassium 3.6 mmol/L (3.4-5.0); Sodium 133 mmol/L (137-145)
[2025-01-16 14:15] LABS: Total Protein Urine Random < 5 mg/dL
[2025-01-16 14:16] LABS: Ur Ttl Prot Creatinine Ratio < 0.04 mg/mg (0-0.20)
== END 2025-01-16 12:03 | disposition home or self-care (01) ==
LOC: ANHLAB 12:05
PROVIDERS: PCP Family Medicine; Visit Provider Internal Medicine Nephrology
DX: I12.9 Hypertensive chronic kidney disease with stage 1 through stage 4 chronic kidney disease, or unspecified chronic kidney disease (principal); N18.4 Chronic kidney disease, stage 4 (severe)
CPT/HCPCS: 36415; 80069; 82570; 84156

== ENCOUNTER 2025-01-17 13:30 | Emergency (ER) | payer MEDICARE, SELFPAY ==
[2025-01-17 13:43] VITALS: BP 128/80; PULSE 66; RESP 18; TEMP 36.7; O2SAT 99
--- NOTE | 2025-01-17 13:53 | ED.FEMALEGU ---
HPI - Female Genitourinary General Chief complaint: Urogenital-Female Stated complaint: Uti Symptoms patient presents to the [facility] with complaints of burning with urination, urinary frequency, and irritation that began over the last few days. Patient does report she is prone to urinary tract infections. Denies increased back pain, abdominal pain, nausea, vomiting, diarrhea, blood in urine, vaginal discharge, or vaginal irritation Related Data Home Medications ?Medication ?Instructions ?Recorded ?Confirmed ?Last Taken ?Type hydrochlorothiazide 25 mg tablet 25 mg PO DAILY 01/20/20 01/17/25 Unknown History lisinopril 40 mg tablet 40 mg PO BID 09/13/20 01/17/25 Unknown History clonidine 0.1 mg/24 hr weekly 1 patch transdermal WEEKLY 02/26/24 01/17/25 Unknown History transdermal patch Allergies Allergy/AdvReac Type Severity Reaction Status Date / Time levofloxacin Allergy Unknown HIVES Verified 09/11/24 10:22 Penicillins Allergy Unknown Hives Verified 12/24/24 11:23 Review of Systems Constitutional: Constitutional: Reports as per HPI, Denies chills and Denies fatigue Eyes: Eyes: Reports no additional eye complaints ENT: Reports system reviewed and no additional complaints, except as documented Cardiovascular: Cardiovascular: Reports no additional cardiovascular complaints Respiratory: Respiratory: Reports no additional respiratory complaints Gastrointestinal: Gastrointestinal: Reports as per HPI, Denies abdominal pain, Denies diarrhea, Denies nausea and Denies vomiting Genitourinary: Genitourinary: Reports as per HPI, Denies abnormal vaginal bleeding, Denies hematuria, Reports nocturia, Denies genital lesions, Reports dysuria, Denies pelvic pain, Denies flank pain, Denies urinary incontinence and Denies vaginal discharge Musculoskeletal: Musculoskeletal: Reports as per HPI, Denies back pain and Denies myalgias Integumentary/Breasts: Skin/Breast: Reports system reviewed and no additional complaints, except as docu Neurologic: Reports as per HPI and Denies weakness Psychiatric: Psychiatric: Reports no additional psychiatric complaints Endocrine: Endocrine: Reports no additional endocrine complaints Hematologic/Lymphatic: Hematologic/Lymphatic: Reports no additional hematologic/lymphatic complaints Allergic/Immunologic: Allergic/Immunologic: Reports no additional allergic/immunologic complaints PMFSH Past Medical History Medical History Acute lower respiratory infection Chronic, continuous use of opioids Acute sinusitis DVT prophylaxis Sepsis Pneumonia Fibromyalgia Recurrent boils Mild mitral regurgitation Diastolic heart failure Hypothyroidism determined by thyroid function test COPD (chronic obstructive pulmonary disease) Smoker GERD with esophagitis Hyperlipidemia SVT (supraventricular tachycardia) Restless leg syndrome Surgical History Surgical History Status post total hip replacement, right 2016 H/O tubal ligation History of tonsillectomy Family History Family History Father Family history of cardiovascular disease Diabetes mellitus Family history of diabetes mellitus in first degree relative Hypertension Mother Diabetes mellitus Family history of diabetes mellitus in first degree relative Family history of thyroid disease Hypertension Social History Social History Social History: Patient smokes a pack a day for past 43 years. No alcohol or drug use. Lives on with her . She nominated her to be the individual making medical decisions for her if she is not able. 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 Code status full code Smoking packs per day: 0.5 Smoking cigarettes per day: 10.0 Years smoked: 44 Smoking pack-years: 22.00 Smoking status: Current every day smoker Tobacco type: cigarettes Second hand tobacco smoke exposure: Yes Alcohol intake: never Substance use: current Substance use type: prescription drug Lack of Transportation: No Lack of Food: Never True Current Housing: I Have Housing Concerned About Future Housing: No Difficulty Paying Gas/Electric Bills: No Difficulty Paying for Meds: No Currently Unemployed: No Education: High School Diploma/GED Difficulty w/ Childcare or Family Care: No Living arrangements: with family Additional living arrangements comments: Lives with Occupation/Education: unemployed Gender identity (if verbalized by the patient): Female Sexual Orientation (if Verbalized by the Patient): Straight or Heterosexual Spiritual care concerns: No Agree to blood products: Yes Exam Const: General: healthy appearing and no acute distress Nutritional Appearance: well nourished Orientation/consciousness: patient oriented x3 Limitations: no limitations Resp: Effort & Inspection: normal respiratory effort Auscultation: clear to auscultation bilaterally Cardio: Rate: regular rate Rhythm: regular rhythm GI: Inspection: non-distended GI Palp: Yes Soft to palpation, No Tenderness to palpation present (GI), No Guarding due to palpation present (GI), No Rigid due to palpation and No Rebound tenderness present Auscultation: normal bowel sounds : General: Yes bladder normal to palpation and Yes no CVA tenderness Back/Spine/Pelvis: Back: no CVA tenderness Skin: General skin exam: normal color Rashes: no rashes Wounds: no wounds Neuro: General: patient oriented x3 Speech: normal speech Gait exam (Neuro): Normal gait present Psych: Appearance: grossly normal Mental Status: mental status grossly normal Affect: normal affect Attitude: cooperative Course Course Level of Care: Express Care Visit Vital Signs Vital signs: Vital Signs Temperature 98.1 F 01/17/25 13:43 Pulse Rate 66 01/17/25 13:43 Respiratory Rate 18 01/17/25 13:43 Blood Pressure 128/80 01/17/25 13:43 Pulse Oximetry 99 01/17/25 13:43 Oxygen Delivery Room Air 01/17/25 13:43 Temperature 98.1 F 01/17/25 13:43 Pulse Rate 66 01/17/25 13:43 Respiratory Rate 18 01/17/25 13:43 Blood Pressure 128/80 01/17/25 13:43 Pulse Oximetry 99 01/17/25 13:43 Oxygen Delivery Room Air 01/17/25 13:43 MDM - Female Genitourinary MDM Narrative Medical decision making narrative: The patient was evaluated by myself in the [facility] care. History is obtained from patient who is an independent historian and physical exam was performed. Available medical records were reviewed at this time. Exam findings show no acute concerns or changes; patient is non-toxic appearing and is in no distress. Patient is appropriate for outpatient treatment and follow-up. I have evaluated and discussed social determinants of health with the patient that could potentially impact subsequent diagnosis and treatment plans. Differential diagnosis and treatment plan were discussed with the patient. Patient agrees with discussion and after shared medical decision making agrees with plan of care. All questions were answered to the patient's satisfaction. Differential Diagnosis Differential diagnosis: Likely urinary tract infection, trichomoniasis, cervicitis, ruptured ovarian cyst, cystitis and dysmenorrhea Medical Records Attestation: I reviewed the patient's medical records. Lab Data Attestation: I reviewed the patient's lab results. Lab results narrative: Ua in clinic and culture sent. Discharge Plan Discharge Clinical Impression: Cystitis Patient Disposition: Home Condition: Stable Instructions: Antibiotic Form, Urinary Tract Infection in Women (ED) Additional Instructions: We will send a urine culture off to the lab; if the culture identifies an organism that the prescribed antibiotic will not treat, you will receive a phone call from an urgent care staff member and an appropriate antibiotic will be prescribed. -Your symptoms should begin to improve within a day of starting antibiotics. But you should finish all the antibiotic pills you get. Otherwise your infection might come back. -Also recommend: drink more fluid. It might help flush out germs, and it does no harm -Tylenol/ibuprofen as needed for pain -Follow-up with your primary care provider for urine recheck OR if your symptoms persist, change or worsen significantly before you can contact your personal physician then please, without delay, go to the emergency department for further evaluation. Patient Language: Romanian Prescriptions: No Action lisinopril 40 mg tablet 40 mg PO BID albuterol sulfate [Ventolin HFA] 90 mcg/actuation HFA aerosol inhaler 1 inh inhalation Q4H PRN (Reason: shortness of breath or wheezing) Qty: 8.5 3RF clonidine 0.1 mg/24 hr patch weekly 1 patch transdermal WEEKLY hydrochlorothiazide 25 mg tablet 25 mg PO DAILY azelastine 137 mcg (0.1 %) aerosol,spray 2 spray NASAL Q12H Qty: 30 3RF Rx Instructions: administer into each nostril pramipexole 0.125 mg tablet 0.125 mg PO .QHS Qty: 90 3RF duloxetine 60 mg capsule,delayed release(DR/EC) 60 mg PO HS Qty: 90 1RF montelukast 10 mg tablet 10 mg PO DAILY Qty: 90 2RF Rx Instructions: TAKE ONE TABLET BY MOUTH DAILY umeclidinium-vilanterol [Anoro Ellipta] 62.5-25 mcg/actuation blister with device See Rx Instructions .ROUTE .COMPLEX Qty: 60 5RF Dose Instruction: INHALE ONE PUFF AT THE SAME TIME EACH DAY Rx Instructions: INHALE ONE PUFF AT THE SAME TIME EACH DAY ipratropium-albuterol 0.5 mg-3 mg(2.5 mg base)/3 mL solution for nebulization 3 ml INHALATION Q6H PRN (Reason: shortness of breath or wheezing) Qty: 90 2RF levothyroxine 112 mcg tablet 112 mcg PO DAILY Qty: 90 1RF Rx Instructions: NO DOSE ON SUNDAYS Eliquis 2.5 mg tablet 2.5 mg PO BID Qty: 60 6RF hydrocodone-acetaminophen 7.5-325 mg tablet 1 tablet PO Q8H PRN (Reason: pain) Qty: 90 0RF atorvastatin 20 mg tablet See Rx Instructions .ROUTE .COMPLEX Qty: 90 3RF Dose Instruction: TAKE 1 TABLET BY MOUTH AT BEDTIME Rx Instructions: TAKE 1 TABLET BY MOUTH AT BEDTIME colchicine 0.6 mg tablet 0.6 mg PO BID Qty: 60 2RF Follow-up/Referrals: PHYSICIAN,ASSISTANT MANAGER AIRSIDE OPERATIONS [Primary Care Provider, Internal Medicine] Time of Disposition: 13:59
[2025-01-17 13:59] LABS: EDUAAPPEAR Clear; EDUABILI Negative (Negative); EDUABLOOD Negative (Negative); EDUACOLOR1 Yellow; EDUAGLUCOSE Negative (Negative); EDUAKETONE Negative (Negative); EDUALEUKO Negative (Negative); EDUANITRATE Negative (Negative); EDUAPH 7.0; EDUAPROTEIN Negative (Negative); EDUASPGRAVITY 1.015; EDUAUROBILI 0.2
== END 2025-01-17 14:04 | disposition home or self-care (01) ==
PROVIDERS: Emergency Provider Nurse Practitioner Family
DX: N30.90 Cystitis, unspecified without hematuria (principal); M79.7 Fibromyalgia; E03.9 Hypothyroidism, unspecified; J44.9 Chronic obstructive pulmonary disease, unspecified; G25.81 Restless legs syndrome; I50.30 Unspecified diastolic (congestive) heart failure; E78.5 Hyperlipidemia, unspecified; Z96.641 Presence of right artificial hip joint
CPT/HCPCS: 81003; 87086; 99213; G0463

== ENCOUNTER 2025-02-04 10:18 | Outpatient (CLI) | payer MEDICARE, SELFPAY ==
[2025-02-04 11:24] LABS: Anion Gap 8 mmol/L (4-12); Blood Urea Nitrogen 24 mg/dL (7-17); Calcium 9.5 mg/dL (8.4-10.2); Carbon Dioxide 28 mmol/L (22-30); Chloride 100 mmol/L (98-107); Estimated Glomerular Filt Rate 38; Glucose 97 mg/dL (65-110); Potassium 4.5 mmol/L (3.4-5.0); Sodium 136 mmol/L (137-145)
--- OUTSIDE RECORDS SUMMARY | 2025-02-05 10:05 | XMS_ITS | Clinical Summary ---
Author Organization [facility] Address [address], [place] [address] Phone Care Team Providers Care Delivery Consultant Name Role Phone Eva Nolen MD Primary Care Provider [phone] Allergies Active Allergy Reactions Criticality Noted Date [...] on file Legal Sex Female 8:43 AM [facility] Gender Identity Not on file [...] Due Date Last Done Comments Influenza Vaccine (#1) 2024 Insurance MEDICARE Care Teams Delivery Consultant Relationship Specialty Start Date End Date Eva Nolen MD [id number] [facility] [address] [facility] [address] [place] [address] PCP - General Internal Medicine 07/09/18
--- OUTSIDE RECORDS SUMMARY | 2025-02-05 10:05 | XMS_ITS | Patient Health Record ---
Author Organization [facility] Address [facility] [address] Care Team Providers Care Supervisor Grower Name Role Phone Leo Rodriguez Primary Care Provider Freddy Collins Unavailable [phone] Allergies Allergen (clinical drug ingredient) Drug/Non Drug Allergy documented on EMR Reaction Allergy Type Onset Date Status Substance with penicillin structure and antibacterial mechanism of action (substance) Penicillins (uncoded) Unknown Allergy Active PredniSONE Jittery/ Anxious Drug Allergy Active Reason For Referral No Information Medications Medication SIG (Take, Route, Frequency, Duration) Notes Start Date End Date Status Cymbalta 60 MG Capsule take 1 capsule (6 0MG) by oral route every day Oral Daily; Duration: 90 days 03/03/2014 Active Synthroid 150 MCG Tablet take 1 tablet ( 150MCG) by oral route every day Oral Once a day; Duration: 90 days 04/25/2013 Active Lisinopril-hydroCHLOROthiazi d e 20-25 MG Tablet TAKE ONE TABLET BY MOUTH EVERY DAY Active Albuterol Sulfate HFA 108 (9 0 Base) MCG/ACT Aerosol Solution 2 puffs as needed Inhalation every 4 hrs 12/14/2014 Active cloNIDine HCl 0.1 MG Tablet TAKE ONE TAB LET BY MOUTH DAILY Active Mirapex 0.125 MG Tablet 1 tablet before bedtime Orally Once a day; Duration: 30 day(s) 06/11/2014 Active Pramipexole Dihydrochloride 0.125 MG Tablet TAKE ONE TABLET BY MOUTH BEFORE BEDTIME Active Meloxicam 15 MG Tablet TAKE ONE TABLET B Y MOUTH EVERY DAY Active Social History Social History Sexual History: Social Info Question Answer Notes Details of Sexual History Are you sexually active? Yes Sexual Abuse History: none Drugs/Alcohol: Social Info Question Answer Notes Drugs Have you used drugs other than those for medical reasons in the past 12 months? No Caffeine Intake: 3-4 cups per day Soda, Coffe e, Tea Tobacco Use: Social Info Question Answer Notes Tobacco use other than smoking: Are you an other tobacco user? No Problems Problem Type SNOMED Code ICD Code Onset Dates Problem Status W/U Status Risk Notes Problem Hypothyroidism (10961470) Unspecified hypothyroidism (244.9) Active confirmed ([facility] ) Added By: Dennise Dickerson Problem Depressive disorder (96083321) Depressive disorder, not elsewhere classified (311) 11/22/19 12 Active confirmed ([facility] ) Added By: Dennise Dickerson Problem Essential hypertension (80160595) Unspecified essential hypertension (401.9) Active confirmed ([facility] ) Added By: Dennise Dickerson Problem Muscle pain (44977356) Unspecified myalgia and myositis (729.1) 11/22/19 12 Active confirmed ([facility] ) Added By: Dennise Dickerson Problem Degenerative joint disease of pelvis (751348210) Osteoarthritis, hip, bilateral (715.95) Active confirmed Problem Lumbar radiculopathy (726719487) Lumbar radiculopathy, chronic (724.4) Active confirmed Problem Lumbar radiculopathy (196161471) Radiculopathy, lumbar region (M54.16) Active confirmed Problem Essential hypertension (52304673) Essential hypertension (I10) Active confirmed Problem Iron deficiency anemia (76741003) Iron deficiency anemia, unspecified iron deficiency anemia type (D50.9) Active confirmed Plan Of Treatment No Information Insurance Providers Payer Name Payer Address Payer Phone Subscriber Number Group Number Insured Name Patient Relationship to Insured Coverage Start Date Coverage End Date [facility] [address] [place], [place] [id number] Taryn Greco Self - patient is the insured 5 5 [employer] [facility] [address] [place] [address] [id number] Taryn Greco Self - patient is the insured 6 Medical (General) History Medical History History ICD Code fibromyalgia hypertension hypothyroid Surgical History Surgery Date(Month/Year) leep tonsillectomy Bilateral tubal ligation
--- OUTSIDE RECORDS SUMMARY | 2025-02-05 10:05 | XMS_ITS | Clinical Summary ---
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 Gender Identity Not on file Sexual Orientation [...] Cervical Cancer Screening (CCS) 1993 HPV/Cotest 1993 Cologuard 2008 Colonoscopy 2008 Colorectal Cancer Screening 2008 Immunochemical Fecal Occult Blood 2008 Pneumococcal Immunization (5 0+ years) (1 of 1 - PCV) 2013 Zoster Immunization (1 of 2) 2013 Medicare Initial AWV [id number] 08/31/2016 Influenza Immunization (#1) 2024 SARS-COV-2 Immunization ( - season) 2024 Respiratory Syncytial Virus (RSV) Immunization (Adult) (1 - 1-dose 75+ series) 2038 Hepatitis B Immunization Aged Out No longer eligible based on patient's age to complete this topic Human Papillomavirus (HPV) Immunization Aged Out No longer eligible b ased on patient's age to complete this topic Meningococcal Immunization (ACWY) Aged Out No longer eligible based on patient's age to complete this topic Rotavirus Immunization Aged Out No lo nger eligible based on patient's age to complete this topic Insurance MEDICARE Care Teams Global Climate Change Analyst Relationship Specialty Start Date End Date Mikhail Mayorga MD [address] [place] [address] PCP - General Family Medicine 06/06/16
--- OUTSIDE RECORDS SUMMARY | 2025-02-05 10:06 | XMS_ITS | Encounter Summary ---
Author Organization [facility] Address [address] [place] [address] Care Team Providers Care Retail Pharmacy Manager Name Role Phone Unavailable Primary Care Provider Unavailabl e Encounter Details Date Type Department Care Team (Late st Contact Info) Description 09/07/2018 Abstract SFL CONVERSION [address] [place] [id number] , Generic Conversion, Social History Tobacco Use [...]
--- OUTSIDE RECORDS SUMMARY | 2025-02-05 10:06 | XMS_ITS | Clinical Summary ---
Author Organization [facility] Address [address] [place] [address] Care Team Providers Care Short Goods Drier Name Role Phone Unavailable Primary Care Provider [...] of 2) 2013 COVID-19 Vaccine ( - 2024-2 6 season) 2024 Influenza Adult (#1) 2024 RSV Immunization or 60+ Years (1 - 1-dose 75+ series) 2038 Hepatitis A Vaccines Aged Out No long er eligible based on patient's age to complete this topic Meningococcal B Vaccine Aged Out No l onger eligible based on patient's age to complete this topic Meningococcal Vaccine Aged Out No ghazala stiven eligible based on patient's age to complete this topic RSV Immunizations Under 20 Months Aged Out No longer eligible based on patient's age to complete this topic
--- OUTSIDE RECORDS SUMMARY | 2025-02-05 10:06 | XMS_ITS | Clinical Summary ---
Author Organization [facility] [address] Address [address] [place] [address] Care Team Providers Care Property Damage Claims Adjustor Name Role Phone Jennifer Peraza MD Primary Care Provider [phone] Allergies Active Allergy Reactions Criticality Noted Date Comments Levofloxacin Unknown 07/25/2016 Penicillins Nausea Only 07/25/2016 Prednazoline Unknown 07/25/2016 Prednisone Anxiety Low 06/21/2023 Medications HYDROcodone-nicole taminophen (NORCO) 7.5-325 mg per tabletIndicatio ns:Pain 1 tablet as needed 0 8 Active pramipexole (MIRAPEX) 0.125 mg tablet Take 1 tablet (0.125 mg total) by mouth daily Active atorvastatin (LIPITOR) 20 mg tablet Take 1 tablet (20 mg total) by mouth daily 94 8 Active levothyroxine (SYNTHROID, LEVOTHROID) 150 mcg tablet Take 137 mcg by mouth daily 4 8 Active azelastine (ASTELIN) 137 mcg (0.1 %) nasal spray 0 Active Anoro Ellipta 62.5-25 mcg/actuation blister with device 1 puff daily 0 Active montelukast (SINGULAIR) 10 mg tablet Take 1 tablet (10 mg total) by mouth nightly Active Eliquis 5 mg tablet 2 (two) times a day [address] (CYMBALTA) 60 mg capsule daily 4 Active albuterol HFA (ProAir HFA) 90 mcg/actuation inhalerIndicati ons:Bronchitis Inhale 2 puffs every 4 (four) hours as needed for wheezing or shortness of breath 8.5 g 2 Active colchicine (COLCRYS) 0.6 mg tablet 2 Active lisinopriL (PRINIVIL,ZESTR IL) 40 mg tablet TAKE ONE TABLET BY MOUTH TWICE A DAY 180 tablet 5 Active cloNIDine (CATAPRES-TTS) 0.2 mg/[address] ONE (1) PATCH ON THE SKIN ONCE A WEEK 12 patch 1 5 Active metoprolol (LOPRESSOR) 100 mg tablet TAKE ONE TABLET BY MOUTH TWICE A DAY 180 tablet 5 Active hydroCHLOROthia zide (HYDRODIURIL) 25 mg tablet TAKE ONE TABLET BY MOUTH DAILY 90 tablet 3 5 Active Active Problems Problem Noted Date Diagnosed Date Nonrheumatic mitral valve regurgitation 12/20/19 24 Hypothyroidism 08/27/2021 Major depressive disorder in remission 2 Mixed hyperlipidemia 08/27/2021 Iron deficiency anemia 08/27/2021 Hypothyroidism 08/27/2021 Chronic obstructive pulmonar y disease with acute lower respiratory infection 08/27/2021 Mixed hyperlipidemia 04/04/2018 Fibromyalgia 03/06/2018 Idiopathic osteoarthritis 03/06/2018 Essential hypertension 01/24/2018 Diastolic dysfunction 01/24/2018 Encounters Date Type Department Care Team Description 12/23/2024 9:00 AM CDT Office Visit [facility] Cardiology [address] [facility] [address] [place] [address] Leo Fountain MD Nonrheumatic mitral valve regurgitation (Primary Dx); Need for lipid screening from Last 3 Months Surgical History Surgery Date Site/Laterality Comments REPLACEMENT [...] Sign Reading Time Taken Comments Blood Pressure 160/80 12/23/2024 9:07 AM CDT Pulse 60 12/23/2024 9:07 AM CDT Temperature 37.2 C (99 F) 12/16/2021 9:02 AM CDT Respiratory Rate 16 12/16/2021 9:02 AM CDT Oxygen Saturation 96% 12/23/2024 9:07 AM CDT Inhaled Oxygen Concentration - - Weight 83.7 kg (184 lb 9.6 oz) 12/23/2024 9:07 A M CDT Height 170.2 cm (5' 7) 12/23/2024 9:07 AM CDT Body Mass Index 28.91 12/23/2024 9:07 AM CDT Plan of Treatment Health Maintenance [...] (1 of 2) 2013 Influenza Vaccine (#1) 2024 , 02/24/2020, 01/23/2019, Additional history exists Procedures Procedure Name Priority Date/Time Associated Diagnosis Comments POCT LIPID PANEL Routine 12/23/2024 10:4 0 AM CDT Need for lipid screening from Last 3 Months Results * POCT lipid panel (12/23/2024 10:40 AM CDT) Cholesterol, POC 170 <200 MG/DL HDL, POC 45 >=40 mg/dL Triglycerides, POC 122 <=149 mg/dL LDL Cholesterol POC 100 <=129 mg/dL Chol/HDL Ratio, POC 2.2 NONE Non-HDL Cholesterol, POC 125 NONE mg/dL Cholesterol Total, POC 170 30 - 199 mg/dL Capillary blood 12/23/2024 1 0:40 AM CDT Leo Fountain MD POINT OF CARE TEST ORDER PURNIMA Final Result from Last 3 Months Insurance MEDICARE [facility] MEDICARE IDPA Care Teams Property Damage Claims Adjustor Relationship Specialty Start Date End Date Jennifer Peraza MD PCP - General Family Medicine 01/18/21
== END 2025-02-04 10:19 | disposition home or self-care (01) ==
PROVIDERS: PCP Family Medicine Adolescent Medicine
DX: E87.1 Hypo-osmolality and hyponatremia (principal)
CPT/HCPCS: 36415; 80048

== ENCOUNTER 2025-02-19 14:25 | Outpatient (CLI) | payer MEDICARE, SELFPAY ==
--- NOTE | ~2025-02-19 | US_ITS ---
EXAMINATION: US soft tissue LE RT, 02/19/2025 14:52 [employer] HISTORY: N18.9 - Chronic kidney disease, unspecified Comparison: None Technique: Saeed-scale and color Doppler images were obtained. Findings: Correlating with the palpable area within the deep subcutaneous tissues there is a large complex focus with increased flow measuring 1.7 x 0.5 x 2.7 cm. IMPRESSION: Complex lesion detailed above with increased flow possible hemangioma but incompletely characterized. Contrast-enhanced MRI is recommended Reviewed, dictated and finalized at location P. M [facility]NER IMPRESSION: Complex lesion detailed above with increased flow possible hemangio ma but incompletely characterized. Contrast-enhanced MRI is recommended
--- OUTSIDE RECORDS SUMMARY | 2025-02-19 17:33 | XMS_ITS | Clinical Summary ---
Author Organization [facility] [address] Address [address] [place] [address] Care Team Providers Care Migrant Leader Name Role Phone Jennifer Peraza MD Primary Care Provider [phone] Allergies Active Allergy Reactions Criticality Noted Date [...] Active colchicine (COLCRYS) 0.6 mg tablet 03/20/20 Active lisinopriL (PRINIVIL,ZEST RIL) 40 mg tablet TAKE ONE TABLET BY MOUTH TWICE A DAY 180 tablet 10/14/19 25 Active metoprolol (LOPRESSOR) 100 mg tablet TAKE ONE TABLET BY MOUTH TWICE A DAY 180 tablet 12/23/19 25 Active hydroCHLOROthi azide (HYDRODIURIL) 25 mg tablet TAKE ONE TABLET BY MOUTH DAILY 90 tablet 3 12/23/19 25 Active cloNIDine (CATAPRES-TTS) 0.2 mg/[address] ONE PATCH ON THE SKIN ONCE A WEEK 90 patch 1 02/13/20 25 Active cloNIDine (CATAPRES-TTS) 0.2 mg/[address] ONE (1) PATCH ON THE SKIN ONCE A WEEK 12 patch 1 11/18/19 25 025 Discontinued Active Problems Problem Noted [...] Description 12/23/2024 9:00 AM CDT Office Visit [facility] Medical [facility] Cardiology [address] [place] [address] Leo Fountain MD Nonrheumatic mitral valve regurgitation [...] of 2) 2013 Influenza Vaccine (#1) 2024 1, 02/24/2020, 01/23/2019, Additional history exists Procedures Procedure [...] from Last 3 Months Insurance MEDICARE [facility] MEDICARE [facility] Address: [address] [address] [place] [address] IDPA Care Teams Migrant Leader Relationship Specialty Start Date End Date Jennifer Peraza MD PCP - General Family Medicine 01/18/21
== END 2025-02-19 14:26 | disposition home or self-care (01) ==
DX: R22.41 Localized swelling, mass and lump, right lower limb (principal); N18.9 Chronic kidney disease, unspecified
CPT/HCPCS: 76882

== ENCOUNTER 2025-03-19 17:49 | Emergency (ER) | payer MEDICARE, SELFPAY ==
[2025-03-19] VITALS (21 sets, daily range): BP systolic 101–137; BP diastolic 63–76; PULSE 64–83; RESP 11–25; TEMP 36.5; O2SAT 95–100
--- OUTSIDE RECORDS SUMMARY | 2025-03-19 19:08 | XMS_ITS | Patient Health Record ---
Author Organization [facility] Address [facility]ly [facility] [address] Care Team Providers Care Black Leather Buffer Name Role Phone Leo Rodriguez Primary Care Provider [phone] Freddy Colilns Unavailable [phone] Allergies Allergen (clinical drug ingredient) Drug/Non Drug [...] Status W/U Status Risk Notes Problem Hypothyroidism (40006376) Unspecified hypothyroidism (244.9) Active confirmed ([facility] ) Added By: Dennise Dickerson Problem Depressive disorder (76984867) Depressive disorder, not elsewhere classified (311) 11/22/19 12 Active confirmed ([facility] ) Added By: Dennise Dickerson Problem Essential hypertension (41774955) Unspecified essential hypertension (401.9) Active confirmed ([facility] ) Added By: Dennise Dickerson Problem Muscle pain (23317464) Unspecified myalgia and myositis (729.1) 11/22/19 12 Active confirmed ([facility] ) Added By: Dennise Dickerson Problem Degenerative joint disease of pelvis (099430006) Osteoarthritis, hip, bilateral (715.95) Active confirmed Problem Lumbar radiculopathy (211284708) Lumbar radiculopathy, chronic (724.4) Active confirmed Problem Lumbar radiculopathy (108054804) Radiculopathy, lumbar region (M54.16) Active confirmed Problem Essential hypertension (68826774) Essential hypertension (I10) Active confirmed Problem Iron deficiency anemia (56268286) Iron deficiency anemia, unspecified iron deficiency anemia type (D50.9) Active confirmed Plan Of Treatment No Information Insurance Providers Payer Name Payer Address Payer Phone Subscriber Number Group Number Insured Name Patient Relationship to Insured Coverage Start Date Coverage End Date [facility] [address] [place], [place] [id number] Taryn Greco Self - patient is the insured 5 5 BCBS [facility] [address] [place] [address] [id number] Taryn Greco Self - patient is the insured 6 Medical (General) History Medical History History ICD Code fibromyalgia hypertension hypothyroid Surgical History Surgery Date(Month/Year) leep tonsillectomy Bilateral tubal ligation
--- OUTSIDE RECORDS SUMMARY | 2025-03-19 19:08 | XMS_ITS | Clinical Summary ---
Author Organization [facility] Address [address] [address] Phone Care Team Providers Care Exceptional Children Teacher Name Role Phone Eva Nolen MD Primary Care Provider [phone] Allergies Active Allergy Reactions Criticality Noted Date [...] on file Legal Sex Female 8:43 AM [facility] Gender Identity Not on file Sexual [...] Vaccine (#1) 2024 Insurance MEDICARE Care Teams Exceptional Children Teacher Relationship Specialty Start Date End Date Eva Nolen MD [address] [facility] [address] [facility] [address] [place] [address] PCP - General Internal Medicine 07/09/18
--- OUTSIDE RECORDS SUMMARY | 2025-03-19 19:08 | XMS_ITS | Clinical Summary ---
Author Organization [facility] [place] [address] Address [address] [place] [address] Care Team Providers Care Cement Finisher Apprentice Name Role Phone Jennifer Peraza MD Primary Care Provider [phone] Allergies Active Allergy Reactions Criticality Noted Date [...] TWICE A DAY 180 tablet 5 Active metoprolol (LOPRESSOR) 100 mg tablet TAKE ONE TABLET BY MOUTH TWICE A DAY 180 tablet 5 Active hydroCHLOROthia zide (HYDRODIURIL) 25 mg tablet TAKE ONE TABLET BY MOUTH DAILY 90 tablet 3 5 Active cloNIDine (CATAPRES-TTS) 0.2 mg/[address] ONE PATCH ON THE SKIN ONCE A WEEK 90 patch 1 5 Active Active Problems Problem Noted Date [...] Description 12/23/2024 9:00 AM CDT Office Visit [facility] Medical [facility] Cardiology [address] [facility] [address] [place] [address] Leo Fountain MD Nonrheumatic mitral valve regurgitation [...] Result from Last 3 Months Insurance MEDICARE [facility] MEDICARE IDPA Care Teams Cement Finisher Apprentice Relationship Specialty Start Date End Date Jennifer Peraza MD PCP - General Family Medicine 01/18/21
--- NOTE | 2025-03-19 19:10 | ED.BACK ---
HPI - Back Pain/Injury General Chief Complaint: Back Pain/Injury Stated Complaint: back pain Time Seen by Provider: 03/19/25 18:06 Source: patient Mode of arrival: ambulatory Limitations: no limitations History of Present Illness HPI Narrative: This is a 60-year-old female with history of fibromyalgia, CKD, spinal stenosis who presents to the ED for back pain. Patient states that 2 days ago, she was lifting a case of water and she felt like she strained her low back. She has been taking Tylenol and her prescribed hydrocodone for this with some mild relief. Today, she felt the pain go up her back and into her head which caused intermittent dizziness. She does not have that symptom at this time. Patient also reports ?my tongue feels like there is a piece of ice stuck to it? and states that it does not feel warm to the touch but states that this did happen previously when she had a UTI. Denies dysuria, hematuria, fevers, chills. Related Data Home Medications ?Medication ?Instructions ?Recorded ?Confirmed ?Last Taken ?Type hydrochlorothiazide 25 mg tablet 25 mg PO DAILY 01/20/20 01/21/25 Unknown History lisinopril 40 mg tablet 40 mg PO BID 09/13/20 01/21/25 Unknown History clonidine 0.1 mg/24 hr weekly 1 patch transdermal WEEKLY 02/26/24 01/21/25 Unknown History transdermal patch Allergies Allergy/AdvReac Type Severity Reaction Status Date / Time levofloxacin Allergy Unknown HIVES Verified 03/19/25 18:04 Penicillins Allergy Unknown Hives Verified 03/19/25 18:04 Review of Systems Review of Systems: All systems reviewed & are unremarkable except as noted in HPI and below PMFSH Past Medical History Medical History Acute lower respiratory infection Chronic, continuous use of opioids Acute sinusitis DVT prophylaxis Sepsis Pneumonia Fibromyalgia Recurrent boils Mild mitral regurgitation Diastolic heart failure Hypothyroidism determined by thyroid function test COPD (chronic obstructive pulmonary disease) Smoker GERD with esophagitis Hyperlipidemia SVT (supraventricular tachycardia) Restless leg syndrome Surgical History Surgical History Status post total hip replacement, right 2016 H/O tubal ligation History of tonsillectomy Family History Family History Father Family history of cardiovascular disease Diabetes mellitus Family history of diabetes mellitus in first degree relative Hypertension Mother Diabetes mellitus Family history of diabetes mellitus in first degree relative Family history of thyroid disease Hypertension Social History Social History Social History: Patient smokes a pack a day for past 43 years. No alcohol or drug use. Lives on with her . She nominated her to be the individual making medical decisions for her if she is not able. 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 Code status full code Smoking packs per day: 0.5 Smoking cigarettes per day: 10.0 Years smoked: 44 Smoking pack-years: 22.00 Smoking status: Current every day smoker Tobacco type: cigarettes Second hand tobacco smoke exposure: Yes Alcohol intake: never Substance use: current Substance use type: prescription drug Lack of Transportation: No Lack of Food: Never True Current Housing: I Have Housing Concerned About Future Housing: No Difficulty Paying Gas/Electric Bills: No Difficulty Paying for Meds: No Currently Unemployed: No Education: High School Diploma/GED Difficulty w/ Childcare or Family Care: No Living arrangements: with family Additional living arrangements comments: Lives with Occupation/Education: unemployed Gender identity (if verbalized by the patient): Female Sexual Orientation (if Verbalized by the Patient): Straight or Heterosexual Spiritual care concerns: No Agree to blood products: Yes Exam Narrative: APPEARANCE: No acute distress, nontoxic, resting in bed EYES: EOMI HEENT: Normocephalic, atraumatic, OMM. Tongue nromal appearance. No posterior oropharyngeal erythema. RESPIRATORY: No respiratory distress Clear to auscultation bilaterally with no rhonchi wheezing or rales. CARDIOVASCULAR: Regular rate and rhythm without murmurs rubs or gallops. ABDOMINAL: Soft, nontender, nondistended, no rebound or guarding MUSCULOSKELETAl: Moves all extremities. Paraspinal tenderness palpation to the bilateral upper lumbar spine into the lower thoracic spine, no midline tenderness, step-offs, deformities. Positive straight leg test bilaterally. NEURO: Awake and alert. Following commands, speech normal, no focal deficits SKIN:: Warm, dry. No rashes lesions or abrasions PSYCHIATRIC: Normal affect/mood, Course Vital Signs Vital signs: Vital Signs Temperature 97.7 F 03/19/25 17:51 Pulse Rate 72 03/19/25 17:51 Respiratory Rate 18 03/19/25 17:51 Blood Pressure 137/73 03/19/25 17:51 Pulse Oximetry 98 03/19/25 17:51 Oxygen Delivery Room Air 03/19/25 17:51 Temperature 97.7 F 03/19/25 17:51 Pulse Rate 72 03/19/25 17:51 Respiratory Rate 18 03/19/25 17:51 Blood Pressure 137/73 03/19/25 17:51 Pulse Oximetry 98 03/19/25 17:51 Oxygen Delivery Room Air 03/19/25 17:51 MDM MDM Narrative Medical decision making narrative: 60-year-old female Presenting for low back pain. On initial evaluation patient was in no acute distress afebrile, hemodynamic stable. Differentials include but are not limited to: Fracture, sprain, strain, contusion Notable exam findings: Tenderness palpation to the paraspinal musculature without midline tenderness over the lumbar spine I personally reviewed the patient's lab result. Notable lab findings: UA more likely contaminant. Advanced imaging is not indicated this patient has no red flag signs for cauda equina or fracture. Patient was given Toradol, Lidoderm, Flexeril. On re-evaluation, she did have significant improvement of her symptoms. Patient was deemed appropriate for discharge at this time. Patient was given a prescription for tizanidine, Lidoderm. UA more likely contaminant, but patient had similar symptoms previously when diagnosed with UTI so she will be given a prescription for keflex. Patient was advised follow-up with their PCP in the next week for re-evaluation. Patient was agreeable to this plan. Given strict return precautions. Differential Diagnosis Differential Diagnosis: Fracture, sprain, strain, contusion Lab Data Labs: Lab Results 03/19/25 Range/Units 19:50 Urine Color Dark yellow (Yellow) Urine Appearance Cloudy H (Clear) Urine pH 5.0 (5.0-9.0) Ur Specific [place] 1.032 (1.001-1.035) Urine Protein Trace (Negative) mg/dL Urine Glucose (UA) Negative (Negative) mg/dL Urine Ketones 1+ H (Negative) mg/dL Ur Blood (Man) Negative (Negative) Urine Nitrate Negative (Negative) Urine Bilirubin Negative (Negative) Urine Urobilinogen 1.0 (<2.0) mg/dL Add Ur Microanalysis Yes Leukocyte Esterase Rfl 1+ H (Negative) JEANINE/UL Urine RBC 0-2 (0-2) /hpf Urine WBC 11-20 H (0-3) /hpf Ur Squamous Epith Cells Many H (Few) /hpf Urine Bacteria 4+ H /hpf Urine Casts >20 Discharge Plan Discharge Clinical Impression: Low back strain Qualifiers: Encounter type: initial encounter Qualified Code(s): S39.012A - Strain of muscle, fascia and tendon of lower back, initial encounter UTI (urinary tract infection) Qualifiers: Urinary tract infection type: site unspecified Hematuria presence: without hematuria Qualified Code(s): N39.0 - Urinary tract infection, site not specified Patient Disposition: Home Condition: Stable Instructions: Antibiotic Form Additional Instructions: Take lidoderm, tizanidine, and keflex as prescribed. Follow up with your PCP in the next week for reevaluation. Return to the ED for new or worsening symptoms. Patient Language: Divehi Prescriptions: New tizanidine 4 mg capsule 4 mg PO HS PRN (Reason: muscle spasticity) Qty: 20 0RF lidocaine [Lidoderm] 5 % adhesive patch,medicated 1 patch topical DAILY Qty: 15 0RF Rx Instructions: leave on most painful area for up to 12 hrs cephalexin 500 mg capsule 500 mg PO Q12H Qty: 10 0RF No Action lisinopril 40 mg tablet 40 mg PO BID albuterol sulfate [Ventolin HFA] 90 mcg/actuation HFA aerosol inhaler 1 inh inhalation Q4H PRN (Reason: shortness of breath or wheezing) Qty: 8.5 3RF clonidine 0.1 mg/24 hr patch weekly 1 patch transdermal WEEKLY hydrochlorothiazide 25 mg tablet 25 mg PO DAILY azelastine 137 mcg (0.1 %) aerosol,spray 2 spray NASAL Q12H Qty: 30 3RF Rx Instructions: administer into each nostril pramipexole 0.125 mg tablet 0.125 mg PO .QHS Qty: 90 3RF umeclidinium-vilanterol [Anoro Ellipta] 62.5-25 mcg/actuation blister with device See Rx Instructions .ROUTE .COMPLEX Qty: 60 5RF Dose Instruction: INHALE ONE PUFF AT THE SAME TIME EACH DAY Rx Instructions: INHALE ONE PUFF AT THE SAME TIME EACH DAY ipratropium-albuterol 0.5 mg-3 mg(2.5 mg base)/3 mL solution for nebulization 3 ml INHALATION Q6H PRN (Reason: shortness of breath or wheezing) Qty: 90 2RF levothyroxine 112 mcg tablet 112 mcg PO DAILY Qty: 90 1RF Rx Instructions: NO DOSE ON SUNDAYS atorvastatin 20 mg tablet See Rx Instructions .ROUTE .COMPLEX Qty: 90 3RF Dose Instruction: TAKE 1 TABLET BY MOUTH AT BEDTIME Rx Instructions: TAKE 1 TABLET BY MOUTH AT BEDTIME duloxetine 60 mg capsule,delayed release(DR/EC) See Rx Instructions .ROUTE .COMPLEX Qty: 90 1RF Dose Instruction: TAKE ONE CAPSULE BY MOUTH BEDTIME Rx Instructions: TAKE ONE CAPSULE BY MOUTH BEDTIME colchicine 0.6 mg tablet See Rx Instructions .ROUTE .COMPLEX Qty: 60 2RF Dose Instruction: TAKE ONE TABLET BY MOUTH TWICE A DAY Rx Instructions: TAKE ONE TABLET BY MOUTH TWICE A DAY montelukast 10 mg tablet See Rx Instructions .ROUTE .COMPLEX Qty: 90 2RF Dose Instruction: TAKE ONE TABLET BY MOUTH DAILY Rx Instructions: TAKE ONE TABLET BY MOUTH DAILY Eliquis 2.5 mg tablet See Rx Instructions .ROUTE .COMPLEX Qty: 60 6RF Dose Instruction: TAKE ONE TABLET BY MOUTH TWICE A DAY Rx Instructions: TAKE ONE TABLET BY MOUTH TWICE A DAY hydrocodone-acetaminophen 7.5-325 mg tablet 1 tablet PO Q8H PRN (Reason: pain) Qty: 90 0RF Follow-up/Referrals: Hugh Karimi APRN [Primary Care Provider, Family Practice]
[2025-03-19] MEDS: KETOROLAC 15 MG/ML VIAL (*BKC) IM (19:39)
[2025-03-19] MEDS: LIDOCAINE 5% PATCH 1 PATCH TRANSDERM (19:40)
[2025-03-19] MEDS: CYCLOBENZAPRINE HCL 10 MG TABLET PO (19:40)
[2025-03-19 20:30] LABS: Add Urine Microscopic? YES; Appearance Urine Cloudy (Clear); Glucose Urine UA Negative (Negative); Leukocyte Esterase Ur 1+ LEU/UL (Negative); Nitrate Urine Negative (Negative); Non Pathogenic Casts >20; Specific Grav Ur 1.032 (1.001-1.035)
[2025-03-19 20:46] LABS: Need Manual Microscopic Yes
== END 2025-03-19 21:07 | disposition home or self-care (01) ==
PROVIDERS: Emergency Provider Student in an Organized Health Care Education/Training Program
DX: S39.012A Strain of muscle, fascia and tendon of lower back, initial encounter (principal); N39.0 Urinary tract infection, site not specified; N18.9 Chronic kidney disease, unspecified; I34.0 Nonrheumatic mitral (valve) insufficiency; I50.30 Unspecified diastolic (congestive) heart failure; E03.9 Hypothyroidism, unspecified; E78.5 Hyperlipidemia, unspecified; J44.9 Chronic obstructive pulmonary disease, unspecified; K21.00 Gastro-esophageal reflux disease with esophagitis, without bleeding; G25.81 Restless legs syndrome; F17.210 Nicotine dependence, cigarettes, uncomplicated; Z96.641 Presence of right artificial hip joint; Z87.01 Personal history of pneumonia (recurrent)
CPT/HCPCS: 81001; 96372; 99283; A9270; J1885

== ENCOUNTER 2025-03-21 12:18 | Emergency (ER) | payer MEDICARE, SELFPAY ==
[2025-03-21] VITALS (34 sets, daily range): BP systolic 69–163; BP diastolic 49–82; PULSE 58–84; RESP 15–22; TEMP 36.4–36.6; O2SAT 93–100
--- NOTE | ~2025-03-21 | XR_ITS ---
Examination: XR hip RT 2V w AP pelvis Clinical History: fall, Rt. hip pain x1 day Comparison: None Technique: 2 views right hip with AP pelvis Findings/impression: 1. Right hip arthroplasty intact without associated fracture or dislocation. 2. No pelvic fracture. Reviewed, dictated and finalized at location R. NICS SYSTEM ENGINEER
--- NOTE | ~2025-03-21 | XR_ITS ---
Examination: XR chest 1V portable Clinical History: weakness Comparison: CT chest 06/01/2022 Technique: Portable AP Findings: Heart size normal. Lungs clear. No acute bony abnormality. IMPRESSION: 1. No acute cardiopulmonary findings given portable technique. Reviewed, dictated and finalized at location R. NESS TRAVEL CONSULTANT
--- NOTE | 2025-03-21 12:20 | PC.NURSE ---
ERP is notified of patient's bp being low. no new orders at this time, will continue to monitor.
--- OUTSIDE RECORDS SUMMARY | 2025-03-21 12:21 | XMS_ITS | Clinical Summary ---
Author Organization [facility] Address [address], [place] [address] Phone Care Team Providers Care Dog Races Manager Name Role Phone Eva Nolen MD Primary Care Provider [phone] Allergies Active Allergy Reactions Criticality Noted Date [...] on file Legal Sex Female 8:43 AM [facility] Gender Identity Not on file Sexual [...] Vaccine (#1) 2024 Insurance MEDICARE Care Teams Dog Races Manager Relationship Specialty Start Date End Date Eva Nolen MD [address] [facility] [address] [facility] [address] [place] [address] PCP - General Internal Medicine 07/09/18
--- OUTSIDE RECORDS SUMMARY | 2025-03-21 12:21 | XMS_ITS | Clinical Summary ---
Author Organization [facility] [place] [address] Address [address] [place] [address] Care Team Providers Care Pharmacy Technician Per Diem Name Role Phone Jennifer Peraza MD Primary Care Provider [phone] Allergies Active Allergy Reactions Criticality Noted Date [...] Description 12/23/2024 9:00 AM CDT Office Visit [facility] Cardiology [address] [facility] [address] [place] [address] Leo Fountain MD Nonrheumatic mitral valve regurgitation [...] Result from Last 3 Months Insurance MEDICARE [facility] MEDICARE IDPA Care Teams Pharmacy Technician Per Diem Relationship Specialty Start Date End Date Jennifer Peraza MD PCP - General Family Medicine 01/18/21
--- OUTSIDE RECORDS SUMMARY | 2025-03-21 12:21 | XMS_ITS | Clinical Summary ---
Author Organization [facility] Address [address] [place] [address] Care Team Providers Care Table Games Dual Rate Supervisor Name Role Phone Unavailable Primary Care [...]
--- OUTSIDE RECORDS SUMMARY | 2025-03-21 12:21 | XMS_ITS | Encounter Summary ---
Author Organization [facility] Address [address] [place] [address] Care Team Providers Care Director Of Market Research Name Role Phone Unavailable Primary Care Provider Unavailabl e Encounter Details Date Type Department Care Team (Late st Contact Info) Description 09/07/2018 Abstract SFL CONVERSION [address] [place] [id number] , Generic Conversion, Social History Tobacco Use [...]
--- OUTSIDE RECORDS SUMMARY | 2025-03-21 12:21 | XMS_ITS | Patient Health Record ---
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 Name Role Phone Leo Rodriguez Primary Care Provider [phone] Freddy Collins Unavailable [phone] Allergies Allergen (clinical drug ingredient) Drug/Non Drug [...] Status W/U Status Risk Notes Problem Hypothyroidism (00191249) Unspecified hypothyroidism (244.9) Active confirmed ([facility] ) Added By: Dennise Dickerson Problem Depressive disorder (16870105) Depressive disorder, not elsewhere classified (311) 11/22/19 12 Active confirmed ([facility] ) Added By: Dennise Dickerson Problem Essential hypertension (97301066) Unspecified essential hypertension (401.9) Active confirmed ([facility] ) Added By: Dennise Dickerson Problem Muscle pain (96344544) Unspecified myalgia and myositis (729.1) 11/22/19 12 Active confirmed ([facility] ) Added By: Dennise Dickerson Problem Degenerative joint disease of pelvis (111089501) Osteoarthritis, hip, bilateral (715.95) Active confirmed Problem Lumbar radiculopathy (125810795) Lumbar radiculopathy, chronic (724.4) Active confirmed Problem Lumbar radiculopathy (682420360) Radiculopathy, lumbar region (M54.16) Active confirmed Problem Essential hypertension (14283797) Essential hypertension (I10) Active confirmed Problem Iron deficiency anemia (69940465) Iron deficiency anemia, unspecified iron deficiency anemia type (D50.9) Active confirmed Plan Of Treatment No Information Insurance Providers Payer Name Payer Address Payer Phone Subscriber Number Group Number Insured Name Patient Relationship to Insured Coverage Start Date Coverage End Date [facility] [address] [place], [place] [id number] Taryn Greco Self - patient is the insured 5 5 [employer] [facility] [address] [place] [address] [id number] Taryn Greco Self - patient is the insured 6 Medical (General) History Medical History History ICD Code fibromyalgia hypertension hypothyroid Surgical History Surgery Date(Month/Year) leep tonsillectomy Bilateral tubal ligation
--- NOTE | 2025-03-21 12:37 | ECG_ITS ---
Test Date: 2025-03-21 12:46:43 Measurements Intervals [place] Rate: 60 P: 53 ID: [id number] QRS: 18 QRSD: 102 T: 188 QT: 439 QTc: 439 Interpretive Statements SINUS RHYTHM LEFT VENTRICULAR HYPERTROPHY AND ST-T CHANGE CANNOT R/O SEPTAL INFARCT, AGE INDETERMINATE BORDERLINE ST-T WAVE ABNORMALITY- INFERIOR LEADS ABNORMAL ECG No previous ECG available for comparison Electronically Signed On 03-21-2025 17:37:55 GRIPPER INSTALLER by Lion Parr D.O.
[2025-03-21] MEDS: SODIUM CHLORIDE 0.9% IV 1,000 ML 999 ML IV CONT ×3 (12:51→19:03)
[2025-03-21 13:04] LABS: Hematocrit 37.9 % (35.0-49.0); Hemoglobin 12.7 g/dL (12.0-15.0); Immature Granulocyte Percent A 0.4 % (0.0-0.0); Lymphocytes Absolute Auto 2.14 K/mm3 (1.10-4.50); Mean Corpuscular HGB Conc 33.5 g/dL (32-36); Mean Corpuscular Hemoglobin 32.2 pg (27.0-31.0); Mean Corpuscular Volume 96.2 fL (78.0-102.0); Nucleated Red Blood Cells Absolute Auto 0.00 K/mm3 (0.00-0.00); Nucleated Red Blood Cells Perc 0.0 % (0-0.0); Platelet Count Result 318 K/mm3 (150-420); Red Blood Count 3.94 M/mm3 (4.20-5.40); White Blood Count 17.1 K/mm3 (4.8-10.8)
--- NOTE | 2025-03-21 13:08 | ED_ITS ---
HPI - General Adult General Chief complaint: Unspecified Stated complaint: backpain and discomfort Time Seen by Provider: 03/21/25 13:08 Related Data Home Medications ?Medication ?Instructions ?Recorded ?Confirmed ?Last Taken ?Type hydrochlorothiazide 25 mg tablet 25 mg PO DAILY 01/21/25 Unknown History lisinopril 40 mg tablet 40 mg PO BID 09/13/20 Unknown History clonidine 0.1 mg/24 hr weekly 1 patch transdermal WEEK LY 02/26/24 01/21/25 Unknown History transdermal patch Allergies Allergy/AdvReac Type Severity Reaction Status Date / Time levofloxacin Allergy Unknown HIVES Verified 03/19/25 18:04 Penicillins Allergy Unknown Hives Verified 03/19/25 18:04 [facility] Past Medical History Medical History Acute lower respiratory infection Chronic, continuous use of opioids Acute sinusitis DVT prophylaxis Sepsis Pneumonia Fibromyalgia Recurrent boils Mild mitral regurgitation Diastolic heart failure Hypothyroidism determined by thyroid function test COPD (chronic obstructive pulmonary disease) Smoker GERD with esophagitis Hyperlipidemia SVT (supraventricular tachycardia) Restless leg syndrome Surgical History Surgical History Status post total hip replacement, right 2016 H/O tubal ligation History of tonsillectomy Family History Family History Father Family history of cardiovascular disease Diabetes mellitus Family history of diabetes mellitus in first degree relative Hypertension Mother Diabetes mellitus Family history of diabetes mellitus in first degree relative Family history of thyroid disease Hypertension Social History Social History Social History: Patient smokes a pack a day for past 43 years. No alcohol or drug use. Lives on with her . She nominated her to be the individual making medical decisions for her if she is not able. 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 Code status full code Smoking packs per day: 0.5 Smoking cigarettes per day: 10.0 Years smoked: 44 Smoking pack-years: 22.00 Smoking status: Current every day smoker Tobacco type: cigarettes Second hand tobacco smoke exposure: Yes Alcohol intake: never Substance use: current Substance use type: prescription drug Lack of Transportation: No Lack of Food: Never True Current Housing: I Have Housing Concerned About Future Housing: No Difficulty Paying Gas/Electric Bills: No Difficulty Paying for Meds: No Currently Unemployed: No Education: High School Diploma/GED Difficulty w/ Childcare or Family Care: No Living arrangements: with family Additional living arrangements comments: Lives with Occupation/Education: unemployed Gender identity (if verbalized by the patient): Female Sexual Orientation (if Verbalized by the Patient): Straight or Heterosexual Spiritual care concerns: No Agree to blood products: Yes Course Vital Signs Vital signs: Vital Signs Temperature 36.4 C L 03/21/25 12:19 Pulse Rate 62 03/21/25 12:19 Respiratory Rate 22 H 03/21/25 12:19 Blood Pressure 80/54 L 03/21/25 12:19 Pulse Oximetry 94 03/21/25 12:19 Oxygen Delivery Room Air 03/21/25 12:19 Temperature 36.4 C L 03/21/25 12:19 Pulse Rate 62 03/21/25 12:19 Respiratory Rate 22 H 03/21/25 12:19 Blood Pressure 80/54 L 03/21/25 12:19 Pulse Oximetry 94 03/21/25 12:19 Oxygen Delivery Room Air 03/21/25 12:19 MDM Differential Diagnosis Differential Diagnosis: x Lab Data 03/21/25 13:01 03/21/25 13:01 Labs: Lab Results 03/21/25 Range/Units 13:01 WBC 17.1 H (4.8-10.8) K/mm3 RBC 3.94 L (4.20-5.40) M/mm3 Hgb 12.7 (12.0-15.0) g/dL Hct 37.9 (35.0-49.0) % MCV 96.2 (78.0-102.0) fL MCH 32.2 H (27.0-31.0) pg MCHC 33.5 (32-36) g/dL RDW 12.9 (11.6-14.4) % Plt Count 318 (150-420) K/mm3 MPV 9.9 (9.2-11.8) fl Immature Gran % (Auto) 0.4 H (0.0-0.0) % Neut % (Auto) 74.9 H (50.0-70.0) % Lymph % (Auto) 12.5 L (18.0-42.0) % Leon % (Auto) 10.4 (2.0-11.0) % Eos % (Auto) 1.3 (1.0-6.0) % Baso % (Auto) 0.5 (0.0-1.0) % Lymph # (Auto) 2.14 (1.10-4.50) K/mm3 Leon # (Auto) 1.78 H (0.10-0.90) K/mm3 Eos # (Auto) 0.22 (0.02-0.50) K/mm3 Baso # (Auto) 0.08 (0.00-0.10) K/mm3 Abs Immat Gran (auto) 0.07 H (0.00-0.00) K/mm3 Absolute Neuts (auto) 12.78 H (1.70-7.20) K/mm3 Absolute Nucleated RBC 0.00 (0.00-0.00) K/mm3 Nucleated RBC % 0.0 (0-0.0) % Sodium Pending Potassium Pending Chloride Pending Carbon Dioxide Pending Anion Gap Pending BUN Pending Creatinine Pending Estim Creat Clear Calc Pending Estimated GFR Pending Glucose Pending Calculated Osmolality Pending Lactic Acid Pending Calcium Pending Total Bilirubin Pending AST Pending ALT Pending Alkaline Phosphatase Pending Troponin I Pending Total Protein Pending Albumin Pending Discharge Plan Discharge Clinical Impression: Hypothyroidism determined by thyroid function test Patient Disposition: Left Against Medical Advice Condition: Stable Patient Language: Estonian Prescriptions: No Action lisinopril 40 mg tablet 40 mg PO BID albuterol sulfate [Ventolin HFA] 90 mcg/actuation HFA aerosol inhaler 1 inh inhalation Q4H PRN (Reason: shortness of breath or wheezing) Qty: 8.5 3RF clonidine 0.1 mg/24 hr patch weekly 1 patch transdermal WEEKLY hydrochlorothiazide 25 mg tablet 25 mg PO DAILY tizanidine 4 mg capsule 4 mg PO HS PRN (Reason: muscle spasticity) Qty: 20 0RF lidocaine [Lidoderm] 5 % adhesive patch,medicated 1 patch topical DAILY Qty: 15 0RF Rx Instructions: leave on most painful area for up to 12 hrs cephalexin 500 mg capsule 500 mg PO Q12H Qty: 10 0RF azelastine 137 mcg (0.1 %) aerosol,spray 2 spray NASAL Q12H Qty: 30 3RF Rx Instructions: administer into each nostril pramipexole 0.125 mg tablet 0.125 mg PO .QHS Qty: 90 3RF umeclidinium-vilanterol [Anoro Ellipta] 62.5-25 mcg/actuation blister with device See Rx Instructions .ROUTE .COMPLEX Qty: 60 5RF Dose Instruction: INHALE ONE PUFF AT THE SAME TIME EACH DAY Rx Instructions: INHALE ONE PUFF AT THE SAME TIME EACH DAY ipratropium-albuterol 0.5 mg-3 mg(2.5 mg base)/3 mL solution for nebulization 3 ml INHALATION Q6H PRN (Reason: shortness of breath or wheezing) Qty: 90 2RF levothyroxine 112 mcg tablet 112 mcg PO DAILY Qty: 90 1RF Rx Instructions: NO DOSE ON SUNDAYS atorvastatin 20 mg tablet See Rx Instructions .ROUTE .COMPLEX Qty: 90 3RF Dose Instruction: TAKE 1 TABLET BY MOUTH AT BEDTIME Rx Instructions: TAKE 1 TABLET BY MOUTH AT BEDTIME duloxetine 60 mg capsule,delayed release(DR/EC) See Rx Instructions .ROUTE .COMPLEX Qty: 90 1RF Dose Instruction: TAKE ONE CAPSULE BY MOUTH BEDTIME Rx Instructions: TAKE ONE CAPSULE BY MOUTH BEDTIME colchicine 0.6 mg tablet See Rx Instructions .ROUTE .COMPLEX Qty: 60 2RF Dose Instruction: TAKE ONE TABLET BY MOUTH TWICE A DAY Rx Instructions: TAKE ONE TABLET BY MOUTH TWICE A DAY montelukast 10 mg tablet See Rx Instructions .ROUTE .COMPLEX Qty: 90 2RF Dose Instruction: TAKE ONE TABLET BY MOUTH DAILY Rx Instructions: TAKE ONE TABLET BY MOUTH DAILY Eliquis 2.5 mg tablet See Rx Instructions .ROUTE .COMPLEX Qty: 60 6RF Dose Instruction: TAKE ONE TABLET BY MOUTH TWICE A DAY Rx Instructions: TAKE ONE TABLET BY MOUTH TWICE A DAY hydrocodone-acetaminophen 7.5-325 mg tablet 1 tablet PO Q8H PRN (Reason: pain) Qty: 90 0RF Follow-up/Referrals: Giuseppe Patel MD [Primary Care Provider, Internal Medicine]
--- NOTE | 2025-03-21 13:10 | ED.BACK ---
HPI - Back Pain/Injury General Chief Complaint: Unspecified Stated Complaint: backpain and discomfort Time Seen by Provider: 03/21/25 13:08 Source: patient and family Mode of arrival: ambulatory Limitations: no limitations History of Present Illness HPI Narrative: Patient is a 60-year-old female with lower back pain after lifting jugs of water and further got a muscle relaxer and took a fall with a muscle relaxer and hurt the right hip. She was seen in the emergency room thereafter and given Keflex for UTI found at that time. She stopped taking the muscle relaxer due to nausea and vomiting. She was given Keflex for the UTI. Patient has chronic diarrhea. Today, she came to the ER for further evaluation of the same complaints. Last set of labs were about a month ago. History of PEs with Eliquis use. MD elicited complaint: back pain, back injury and fall Pertinent past history: other (PE in the past, hyperlipidemia, depression, hypertension, COPD, hypothyroid) Onset (ago): week(s) (1) Timing: constant and progressively worsening Severity: moderate Pain scale (0-10): 4 Similar Symptoms Previously: No Quality: sharp, stabbing and spasming Location: right lower back and left lower back Radiation: none Exacerbating factors: movement and lifting Relieving factors: none Context: other (Patient initially lifted up a heavy water and got lower back pain and further took a fall from the muscle relaxer for the back pain which was a right hip fall. Patient sustained right hip pain.) Associated symptoms: denies other symptoms Treatments prior to arrival: cold therapy Related Data Home Medications ?Medication ?Instructions ?Recorded ?Confirmed ?Last Taken ?Type hydrochlorothiazide 25 mg tablet 25 mg PO DAILY 01/20/20 01/21/25 Unknown History lisinopril 40 mg tablet 40 mg PO BID 09/13/20 01/21/25 Unknown History clonidine 0.1 mg/24 hr weekly 1 patch transdermal WEEKLY 02/26/24 01/21/25 Unknown History transdermal patch Allergies Allergy/AdvReac Type Severity Reaction Status Date / Time cephalexin (From Keflex) Allergy Severe Anaphylaxis Verified 03/21/25 14:19 levofloxacin Allergy Unknown HIVES Verified 03/21/25 14:19 Penicillins Allergy Unknown Hives Verified 03/21/25 14:19 Review of Systems Review of Systems: All systems reviewed & are unremarkable except as noted in HPI and below Constitutional: Constitutional: Reports no additional constitutional complaints Eyes: Eyes: Reports no additional eye complaints ENT: Reports system reviewed and no additional complaints, except as documented Cardiovascular: Cardiovascular: Reports no additional cardiovascular complaints Respiratory: Respiratory: Reports no additional respiratory complaints Gastrointestinal: Gastrointestinal: Reports no additional gastrointestinal complaints Genitourinary: Genitourinary: Reports no additional female genitourinary complaints Musculoskeletal: Musculoskeletal: Reports no additional musculoskeletal complaints Neurologic: Reports system reviewed and no additional complaints, except as documented Psychiatric: Psychiatric: Reports no additional psychiatric complaints Endocrine: Endocrine: Reports no additional endocrine complaints Hematologic/Lymphatic: Hematologic/Lymphatic: Reports no additional hematologic/lymphatic complaints Allergic/Immunologic: Allergic/Immunologic: Reports no additional allergic/immunologic complaints [facility] Past Medical History Medical History Acute lower respiratory infection Chronic, continuous use of opioids Acute sinusitis DVT prophylaxis Sepsis Pneumonia Fibromyalgia Recurrent boils Mild mitral regurgitation Diastolic heart failure Hypothyroidism determined by thyroid function test COPD (chronic obstructive pulmonary disease) Smoker GERD with esophagitis Hyperlipidemia SVT (supraventricular tachycardia) Restless leg syndrome Surgical History Surgical History Status post total hip replacement, right 2016 H/O tubal ligation History of tonsillectomy Family History Family History Father Family history of cardiovascular disease Diabetes mellitus Family history of diabetes mellitus in first degree relative Hypertension Mother Diabetes mellitus Family history of diabetes mellitus in first degree relative Family history of thyroid disease Hypertension Social History Social History Social History: Patient smokes a pack a day for past 43 years. No alcohol or drug use. Lives on with her . She nominated her to be the individual making medical decisions for her if she is not able. 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 Code status full code Smoking packs per day: 0.5 Smoking cigarettes per day: 10.0 Years smoked: 44 Smoking pack-years: 22.00 Smoking status: Current every day smoker Tobacco type: cigarettes Second hand tobacco smoke exposure: Yes Alcohol intake: never Substance use: current Substance use type: prescription drug Lack of Transportation: No Lack of Food: Never True Current Housing: I Have Housing Concerned About Future Housing: No Difficulty Paying Gas/Electric Bills: No Difficulty Paying for Meds: No Currently Unemployed: No Education: High School Diploma/GED Difficulty w/ Childcare or Family Care: No Living arrangements: with family Additional living arrangements comments: Lives with Occupation/Education: unemployed Gender identity (if verbalized by the patient): Female Sexual Orientation (if Verbalized by the Patient): Straight or Heterosexual Spiritual care concerns: No Agree to blood products: Yes Exam Narrative: Patient proceeded to have some tongue swelling which was going on for the past few days and likely from the cephalosporin and her penicillin allergy. She was given Keflex a few days ago. We gave her Benadryl and steroid which resolved most of the problem. Const: General: healthy appearing Nutritional Appearance: well nourished Orientation/consciousness: patient oriented x3 HENMT: Head: normal to inspection Ears: external ears normal Face/Nose/Sinus: Normal external nose present Eyes: Conjunctivae: conjunctivae normal Pupils: Equal, round and reactive pupils present EOM: EOMs intact bilaterally Neck: Neck: normal visual inspection Chest: Chest palpation & inspection: normal inspection of the chest Resp: Effort & Inspection: normal respiratory effort and not labored Auscultation: clear to auscultation bilaterally and no crackles Cardio: Rate: regular rate Rhythm: regular rhythm Heart sounds: no murmurs GI: Inspection: non-distended GI Palp: Yes Soft to palpation Auscultation: normal bowel sounds, bowel sounds present, no hyperactive bowel sounds and Hypoactive bowel sounds present Rectal Exam: Abnormal stool present : General: Yes bladder normal to palpation Back/Spine/Pelvis: Back: no CVA tenderness Skin: General skin exam: normal color Rashes: no rashes Wounds: no wounds Neuro: General: patient oriented x3, moves all extremities and no meningeal signs Cranial nerves: Yes Nystagmus not present Speech: normal speech Gait exam (Neuro): Normal gait present Extrem: General: normal to inspection, no clubbing, cyanosis or edema and no pedal edema Other: Tender right hip to palpation Psych: Mental Status: mental status grossly normal Affect: normal affect Attitude: cooperative Course Vital Signs Vital signs: Vital Signs Temperature 36.4 C L 03/21/25 12:19 Pulse Rate 62 03/21/25 12:19 Respiratory Rate 22 H 03/21/25 12:19 Blood Pressure 80/54 L 03/21/25 12:19 Pulse Oximetry 94 03/21/25 12:19 Oxygen Delivery Room Air 03/21/25 12:19 Temperature 36.4 C L 03/21/25 12:19 Pulse Rate 63 03/21/25 12:30 Respiratory Rate 17 03/21/25 12:30 Blood Pressure 87/67 L 03/21/25 12:30 Pulse Oximetry 100 03/21/25 12:30 Oxygen Delivery Room Air 03/21/25 12:19 [facility] Narrative Medical decision making narrative: Patient is a 60-year-old female with hypotension and acute renal failure found with her presenting complaints of lower back pain and right hip pain upon workup. We have proceeded to move her to a larger facility at this time with the acute renal failure for further evaluation. She has a multitude of complaints which can be further evaluated at the next facility once the acute problems have been resolved. Patient was accepted by the hospitalist at [facility]. No active nausea vomiting diarrhea. She will be going for higher level medical care to see Nephrology. She appears to possibly have sepsis and we will go ahead and give doxycycline IV for antibiotics and the IV fluids. She has many allergies. We will give morphine for pain control. She has pain of her ears and head and neck area. This is a mixture of chronic and acute complaints. In the end, the patient appears to have panic and anxiety issues that she finally told us about for our information. She was having tingling of the extremities. No focal deficits. Fast exam negative, NIH is 0, GCS is 15. Differential Diagnosis Differential Diagnosis: Right hip fracture, renal failure, sepsis Lab Data [facility] Lab Attestation statement: I personally reviewed the patient's lab results. 03/21/25 13:01 03/21/25 13:01 Labs: Lab Results 03/21/25 Range/Units 13:01 WBC 17.1 H (4.8-10.8) K/mm3 RBC 3.94 L (4.20-5.40) M/mm3 Hgb 12.7 (12.0-15.0) g/dL Hct 37.9 (35.0-49.0) % MCV 96.2 (78.0-102.0) fL MCH 32.2 H (27.0-31.0) pg MCHC 33.5 (32-36) g/dL RDW 12.9 (11.6-14.4) % Plt Count 318 (150-420) K/mm3 MPV 9.9 (9.2-11.8) fl Immature Gran % (Auto) 0.4 H (0.0-0.0) % Neut % (Auto) 74.9 H (50.0-70.0) % Lymph % (Auto) 12.5 L (18.0-42.0) % [place] % (Auto) 10.4 (2.0-11.0) % Eos % (Auto) 1.3 (1.0-6.0) % Baso % (Auto) 0.5 (0.0-1.0) % Lymph # (Auto) 2.14 (1.10-4.50) K/mm3 [place] # (Auto) 1.78 H (0.10-0.90) K/mm3 Eos # (Auto) 0.22 (0.02-0.50) K/mm3 Baso # (Auto) 0.08 (0.00-0.10) K/mm3 Abs Immat Gran (auto) 0.07 H (0.00-0.00) K/mm3 Absolute Neuts (auto) 12.78 H (1.70-7.20) K/mm3 Absolute Nucleated RBC 0.00 (0.00-0.00) K/mm3 Nucleated RBC % 0.0 (0-0.0) % Sodium 136 L (137-145) mmol/L Potassium 3.0 L (3.4-5.0) mmol/L Chloride 97 L (98-107) mmol/L Carbon Dioxide 20 L (22-30) mmol/L Anion Gap 19 H (4-12) mmol/L BUN 69 H D (7-17) mg/dL Creatinine 9.06 H (0.7-1.0) mg/dL Estim Creat Clear Calc 7 ml/min Estimated GFR 4 L (59 - ) Glucose 118 H (65-110) mg/dL Calculated Osmolality 303 H (285-295) mOsm/kg Lactic Acid 1.3 (0.7-2.0) mmol/L Calcium 8.1 L (8.4-10.2) mg/dL Total Bilirubin 0.7 (0.2-1.3) mg/dL AST 20 (14-36) U/L ALT 15 (6-35) U/L Alkaline Phosphatase 66 (38-126) U/L Troponin I 0.083 H* (0.000-0.034) ng/mL Total Protein 7.7 (6.3-8.2) g/dL Albumin 4.8 (3.5-5.1) g/dL Imaging Data Attestation: I personally reviewed and interpreted this imaging study as follows: My impression: Chest x-ray is negative for acute process Radiologist's impression: ITS Impressions Chest X-Ray 03/21/25 13:30 IMPRESSION: 1. No acute cardiopulmonary findings given portable technique. ECG Data EKG #1: Attestation: I personally reviewed and interpreted this ECG as follows: ECG completion date: 03/21/25 ECG completion time: 14:03 normal rate, sinus rhythm, no ectopy, non-specific ST changes, normal QRS, normal QT and left axis Discharge Plan Discharge Clinical Impression: Hypotension, Acute renal failure, Elevated troponin, Electrolyte imbalance, Acute dehydration, Leukocytosis, Sepsis Patient Disposition: Acute Care Hospital Condition: Stable Patient Language: Belarusian Prescriptions: No Action lisinopril 40 mg tablet 40 mg PO BID albuterol sulfate [Ventolin HFA] 90 mcg/actuation HFA aerosol inhaler 1 inh inhalation Q4H PRN (Reason: shortness of breath or wheezing) Qty: 8.5 3RF clonidine 0.1 mg/24 hr patch weekly 1 patch transdermal WEEKLY hydrochlorothiazide 25 mg tablet 25 mg PO DAILY tizanidine 4 mg capsule 4 mg PO HS PRN (Reason: muscle spasticity) Qty: 20 0RF lidocaine [Lidoderm] 5 % adhesive patch,medicated 1 patch topical DAILY Qty: 15 0RF Rx Instructions: leave on most painful area for up to 12 hrs cephalexin 500 mg capsule 500 mg PO Q12H Qty: 10 0RF azelastine 137 mcg (0.1 %) aerosol,spray 2 spray NASAL Q12H Qty: 30 3RF Rx Instructions: administer into each nostril pramipexole 0.125 mg tablet 0.125 mg PO .QHS Qty: 90 3RF umeclidinium-vilanterol [Anoro Ellipta] 62.5-25 mcg/actuation blister with device See Rx Instructions .ROUTE .COMPLEX Qty: 60 5RF Dose Instruction: INHALE ONE PUFF AT THE SAME TIME EACH DAY Rx Instructions: INHALE ONE PUFF AT THE SAME TIME EACH DAY ipratropium-albuterol 0.5 mg-3 mg(2.5 mg base)/3 mL solution for nebulization 3 ml INHALATION Q6H PRN (Reason: shortness of breath or wheezing) Qty: 90 2RF levothyroxine 112 mcg tablet 112 mcg PO DAILY Qty: 90 1RF Rx Instructions: NO DOSE ON SUNDAYS atorvastatin 20 mg tablet See Rx Instructions .ROUTE .COMPLEX Qty: 90 3RF Dose Instruction: TAKE 1 TABLET BY MOUTH AT BEDTIME Rx Instructions: TAKE 1 TABLET BY MOUTH AT BEDTIME duloxetine 60 mg capsule,delayed release(DR/EC) See Rx Instructions .ROUTE .COMPLEX Qty: 90 1RF Dose Instruction: TAKE ONE CAPSULE BY MOUTH BEDTIME Rx Instructions: TAKE ONE CAPSULE BY MOUTH BEDTIME colchicine 0.6 mg tablet See Rx Instructions .ROUTE .COMPLEX Qty: 60 2RF Dose Instruction: TAKE ONE TABLET BY MOUTH TWICE A DAY Rx Instructions: TAKE ONE TABLET BY MOUTH TWICE A DAY montelukast 10 mg tablet See Rx Instructions .ROUTE .COMPLEX Qty: 90 2RF Dose Instruction: TAKE ONE TABLET BY MOUTH DAILY Rx Instructions: TAKE ONE TABLET BY MOUTH DAILY Eliquis 2.5 mg tablet See Rx Instructions .ROUTE .COMPLEX Qty: 60 6RF Dose Instruction: TAKE ONE TABLET BY MOUTH TWICE A DAY Rx Instructions: TAKE ONE TABLET BY MOUTH TWICE A DAY hydrocodone-acetaminophen 7.5-325 mg tablet 1 tablet PO Q8H PRN (Reason: pain) Qty: 90 0RF Follow-up/Referrals: Giuseppe Patel MD [Physician, Internal Medicine] Time of Disposition: 14:08
--- NOTE | 2025-03-21 13:12 | PC.NURSE ---
Clonidine patch removed per ERP verbal order.
[2025-03-21 13:17] LABS: Alanine Aminotransferase 15 U/L (6-35); Albumin Level 4.8 g/dL (3.5-5.1); Alkaline Phosphatase 66 U/L (38-126); Anion Gap 19 mmol/L (4-12); Aspartate Amino Transferase 20 U/L (14-36); Bilirubin,Total 0.7 mg/dL (0.2-1.3); Blood Urea Nitrogen 69 mg/dL (7-17); Calcium 8.1 mg/dL (8.4-10.2); Carbon Dioxide 20 mmol/L (22-30); Chloride 97 mmol/L (98-107); Estimated CRCL calculation 7 ml/min; Estimated Glomerular Filt Rate 4; Glucose 118 mg/dL (65-110); Osmolality Calculated 303 mOsm/kg (285-295); Potassium 3.0 mmol/L (3.4-5.0); Sodium 136 mmol/L (137-145); Total Protein 7.7 g/dL (6.3-8.2)
[2025-03-21 13:32] LABS: Troponin I 0.083 ng/mL (0.000-0.034)
--- NOTE | 2025-03-21 14:10 | PC.NURSE ---
ERP and RN called to beside patient states her tongue feels more swollen at this time. ERP examined patient, med to follow.
--- NOTE | 2025-03-21 14:15 | PC.NURSE ---
ERP and RN called to bedside for patient having panic attack stating her tongue was swelling and felt like her throat was closing, physical exam done by ERP. Patient's airway was patent. Patient able to be calmed and medications ordered for possible reaction to antibotic patient was taking prior to arrival. Due to patient's symptoms throughout visit of thinking her tongue is swelling, medications have been spaced out in case of possible reaction. This decision made by ERP
--- NOTE | 2025-03-21 14:20 | PC.NURSE ---
PER ERP GIVE POTASSIUM WHEN PATIENT THINKS SHE CAN SWALLOW SAFELY. IF NEEDED MAY USE APPLE SAUCE. PATIENT AWARE OF PO MEDICATION BUT STATES SHE DOESN'T THINK SHE CAN TAKE AT THIS TIME.
[2025-03-21] MEDS: MORPHINE SULFATE (*CRX) 2 MG/ML INJ IV PUSH (15:09)
--- NOTE | 2025-03-21 16:09 | PC.NURSE ---
Patient called out again stating her tongue was sweling her head was throbbing and back is hurting, ERP at bedside with RN for physical exam. Patient's airway is patent and o2 is 100% at this time. patient is callmed and reposition, medication to follow.
[2025-03-21] MEDS: DOXYCYCLINE IV 100 MG in SODIUM CHLORIDE 0.9% IV 100 ML IVPB (16:11)
--- NOTE | 2025-03-21 16:15 | PC.NURSE ---
PATIENT STATES THE DOXYCYCLINE IS HURTING HER HAND WHERE HER IV IS INFUSING, ERP NOTIFIED, INFUSION SLOWED TO HALF THE RATE PER ERP INSTRUCTION.
[2025-03-21] MEDS: POTASSIUM CHLORIDE 20 MEQ ER TABLET PO (18:47)
--- NOTE | 2025-03-21 19:41 | PC.NURSE ---
spoke with Erin from lab, urine dropped off
[2025-03-21 19:51] LABS: Add Urine Microscopic? YES; Glucose Urine UA Negative (Negative); Leukocyte Esterase Ur Negative LEU/UL (Negative); Nitrate Urine Negative (Negative); Specific Grav Ur 1.020 (1.010-1.020)
[2025-03-21 19:59] LABS: Appearance Urine Sl Cloudy (Clear)
== END 2025-03-21 21:30 | disposition short-term general hospital (02) ==
PROVIDERS: Emergency Provider Emergency Medicine; PCP Family Medicine
DX: E03.9 Hypothyroidism, unspecified (principal); E78.5 Hyperlipidemia, unspecified; J44.9 Chronic obstructive pulmonary disease, unspecified; I50.9 Heart failure, unspecified; F17.210 Nicotine dependence, cigarettes, uncomplicated
CPT/HCPCS: 36415; 71045; 73502; 80053; 81001; 83605; 84484; 85025; 93005; 96361; 96365; 96375; 99285; A9270; J1200; J2270; J2919; J7030